=== PATIENT | male | born 1940 | race Caucasian/White ===

== ENCOUNTER 2018-07-22 00:50 | Inpatient (IN) | payer OTHER ==
[~2018-07-22] VITALS: Ht 175.3 cm; Wt 70.1 kg
[~2018-07-22 00:50] MED LIST: ACETAMINOPHEN500 MG PO; LIDO5TP TOP; Micro-K10 MEQ PO; Multivitamin W1 EAC5 PO; THIA100 PO; WARF5 PO
[2018-07-22 01:13] LABS: BASOPHILS ABSOLUTE AUTO 0.06 K/mm3 (0.00-0.23); BASOPHILS PERCENT AUTO 1 % (0-2); EOSINOPHILS ABSOLUTE AUTO 0.35 K/mm3 (0.00-0.68); EOSINOPHILS PERCENT AUTO 6 % (0-6); Hematocrit 41.2 % (37.0-53.0); Hemoglobin 13.9 g/dL (13.5-17.5); IMMATURE GRAN ABSOLUTE AUTO 0.02 K/mm3 (0.00-0.10); IMMATURE GRAN PERCENT AUTO 0 % (0-1); LYMPHOCYTES PERCENT AUTO 16 % (21-46); MONOCYTES ABSOLUTE AUTO 0.65 K/mm3 (0.16-1.47); MONOCYTES PERCENT AUTO 10 % (4-13); Mean Corpuscular HGB 33.7 pg (26.0-34.0); Mean Corpuscular HGB Conc 33.7 g/dL (31.5-36.5); Mean Corpuscular Volume 100 fL (80-100); Mean Platelet Volume 8.7 fL (9.1-12.4); NEUTROPHILS ABSOLUTE AUTO 4.23 K/mm3 (1.96-9.15); NEUTROPHILS PERCENT AUTO 67 % (41-73); Platelet Count 155 K/mm3 (150-400); RDW Coefficient Variation 12.5 % (11.7-14.2); RDW Standard Deviation 46.4 fL (35.1-46.3); Red Blood Cell Count 4.12 M/mm3 (4.30-5.90); White Blood Cell Count 6.31 K/mm3 (4.00-11.30)
[2018-07-22 01:33] LABS: Alanine Aminotransfer (ALT/SGP 18 U/L (12-78); Albumin, Blood 3.2 g/dL (3.4-5.0); Albumin/Globulin Ratio 0.9 (0.8-1.8); Alk Phos 97 U/L (50-136); Anion Gap 6 mmol/L (6-16); Aspartate Aminotrans (AST/SGOT 20 U/L (12-37); Bilirubin, Total 0.6 mg/dL (0.1-1.0); Blood Urea Nitrogen 8 mg/dL (8-24); Bun/Creatinine Ratio 10.8 (12.0-20.0); CO2, Blood 30 mmol/L (21-32); Calcium, Blood 8.5 mg/dL (8.5-10.1); Chloride, Blood 98 mmol/L (98-108); Creatinine, Blood 0.74 mg/dL (0.60-1.20); Globulin, Blood 3.4 g/dL (2.2-4.0); Glomerular Filtration Rate >60 (60-); Glucose, Blood 107 mg/dL (70-99); Potassium, Blood 3.6 mmol/L (3.5-5.5); Sodium, Blood 134 mmol/L (136-145); Total Protein, Blood 6.6 g/dL (6.4-8.2); Troponin I <0.015 ng/mL (0.000-0.040)
[2018-07-22 03:11] LABS: Source, Urine Catheter
[2018-07-22 03:16] LABS: Bilirubin, Urine Neg (Neg); Blood, Urine Neg (Neg); Glucose Qualitative, Urine Neg (Neg); Ketones, Urine Neg (Neg); Leukocyte Esterase, Urine Neg (Neg); Nitrite, Urine Neg (Neg); Protein, Urine Neg (Neg); Urobilinogen, Urine NORM (Normal)
[2018-07-22 03:21] LABS: Appearance, Urine Clear (Clear); Color, Urine Yellow (P-Yellow)
[2018-07-22 08:03] LABS: Anion Gap 7 mmol/L (6-16); Blood Urea Nitrogen 5 mg/dL (8-24); Bun/Creatinine Ratio 6.5 (12.0-20.0); CO2, Blood 29 mmol/L (21-32); Calcium, Blood 8.2 mg/dL (8.5-10.1); Chloride, Blood 99 mmol/L (98-108); Creatinine, Blood 0.78 mg/dL (0.60-1.20); Glomerular Filtration Rate >60 (60-); Glucose, Blood 90 mg/dL (70-99); Potassium, Blood 3.7 mmol/L (3.5-5.5); Sodium, Blood 135 mmol/L (136-145)
[2018-07-22 08:19] LABS: International Normalized Ratio 1.06; Prothrombin Time Results 11.2 Sec (9.7-11.5)
--- NOTE | 2018-07-22 08:57 | NUR ---
ADMIT- PT ARRIVED TO ROOM 342 VIA GURNEY FROM ED. PT A SBA INTO BED. PT DENIES ANY PAIN OR OTHER COMPLAINTS. PT A/O TO PERSON, PLACE AND DATE HOWEVER FORGETFUL AND HAD DIFFICULTY ANSWERING SOME QUESTIONS REGARDING HISTORY. LS CLEAR, ON RA. HRR. 2+ BLE EDEMA. FRAUSTO PATENT AND DRAINING BLOODY URINE, NO CLOTS NOTED AT THIS TIME. SCD'S PLACED AND BED ALARM ON. PT ORIENTED TO ROOM AND CALL SYSTEM, CALL LIGHT IN REACH.
[2018-07-22] MEDS ORDERED: WARF5 PO (09:29)
--- NOTE | 2018-07-22 09:30 | NUR ---
SPOKE WITH SON WHO REPORTS PT TAKES WARFARIN AT HOME. [facility] REPORTS PT WAS PRESCRIBED WARFARN 5MG ON MON, WED, FRI, AND FRI AND 1.5 TABS (7.5MG) ON FRI, ,FRI. THESE WERE A 30 DAY FILL ON April PRESCRIBED BY JACQUELINE GEE, PT HAS NOT HAD ANY FURTHER PICKED UP.
--- NOTE | 2018-07-22 09:44 | NUR ---
PT REPORTS FEELING URGE TO URINATE WITH FRAUSTO CATHETER IN. PT WITH BLOODY OUTPUT WITH NOTED BLOOD CLOTS, SPOKE WITH DR BARRIGA AND ORDERS RECEIVED FOR MANUAL IRRIGATION PRN.
--- NOTE | 2018-07-22 11:14 | NUR ---
MANUAL BLADDER IRRIGATION COMPLETED, PT TOLERATED WELL. CATHETER DRAINING WELL AT THIS TIME.
--- NOTE | 2018-07-22 13:59 | NUR ---
THREE WAY FRAUSTO PLACED, URINE RED WITH CLOTS. CONTINUOUS BLADDER IRRIGATION STARTED.
--- NOTE | 2018-07-22 15:20 | NUR ---
PT BECOMING MORE CONFUSED AND ADAMENT THAT HE IS GETTING UP GOING TO HIS FRIDGE TO GET A BEER, WHEN ASKED PT STATES HE IS AT THE HOSPITAL BUT THEN STATES THAT THIS IS HIS PROPERTY AND HE IS GETTING UP GETTING A BEER. PT ALSO REQUESTING HIS CHEW, NICOTINE PATCH OFFERED AND REFUSED. CIWA SCORE OF 9 AT THIS TIME, PRN ATIVAN GIVEN. SPOKE WITH DR BARRIGA WHO OK'D FOR 1 BEER WITH DINNER ONLY AT THIS TIME. WILL CONT TO MONITOR.
[2018-07-22 15:57] LABS: Hematocrit 46.2 % (37.0-53.0); Hemoglobin 15.8 g/dL (13.5-17.5)
--- NOTE | 2018-07-22 16:20 | NUR ---
REPORT GIVEN TO JAC MEJIA. PT MOVED TO ROOM 351 VIA BED FOR INCREASED CONFUSION AND AGITATION. WILL NOTIFY FAMILY OF MOVE.
--- NOTE | 2018-07-22 16:26 | NUR ---
SPOKE WITH PT'S SON BRANDI, HE CONFIRMED THAT PT DRINKS A 12 PACK A BEER A DAY ROUGHLY. WILL NOTIFY RN ASSUMING CARE.
--- NOTE | 2018-07-22 19:41 | NUR ---
SHIFT SUMMARY: PATIENT TRANSFER FROM ROOM 342 THIS SHIFT. PT HX ETOH ABUSE; PT ALERT; ORIENTED TO SELF AND LOCATION. CONTINUOUS BLADDER IRRIGATION CONTINUING; PATENT AND DRAINING; URINE DARK RED. PATIENT CONTINUING AGITATION SINCE ARRIVAL IN ROOM 351; GIANFRANCO VEST RESTRAINT APPLIED AT 1640; IV ATIVAN GIVEN. REPORT GIVEN TO ONCOMING RN.
[2018-07-23 05:31] LABS: BASOPHILS ABSOLUTE AUTO 0.03 K/mm3 (0.00-0.23); BASOPHILS PERCENT AUTO 0 % (0-2); EOSINOPHILS ABSOLUTE AUTO 0.05 K/mm3 (0.00-0.68); EOSINOPHILS PERCENT AUTO 1 % (0-6); Hematocrit 37.4 % (37.0-53.0); Hemoglobin 12.8 g/dL (13.5-17.5); IMMATURE GRAN ABSOLUTE AUTO 0.03 K/mm3 (0.00-0.10); IMMATURE GRAN PERCENT AUTO 0 % (0-1); LYMPHOCYTES PERCENT AUTO 8 % (21-46); MONOCYTES ABSOLUTE AUTO 1.04 K/mm3 (0.16-1.47); MONOCYTES PERCENT AUTO 11 % (4-13); Mean Corpuscular HGB 34.7 pg (26.0-34.0); Mean Corpuscular HGB Conc 34.2 g/dL (31.5-36.5); Mean Corpuscular Volume 101 fL (80-100); Mean Platelet Volume 9.2 fL (9.1-12.4); NEUTROPHILS ABSOLUTE AUTO 7.29 K/mm3 (1.96-9.15); NEUTROPHILS PERCENT AUTO 80 % (41-73); Platelet Count 132 K/mm3 (150-400); RDW Coefficient Variation 12.4 % (11.7-14.2); RDW Standard Deviation 46.7 fL (35.1-46.3); Red Blood Cell Count 3.69 M/mm3 (4.30-5.90); White Blood Cell Count 9.14 K/mm3 (4.00-11.30)
[2018-07-23 05:55] LABS: Albumin, Blood 2.5 g/dL (3.4-5.0); Anion Gap 5 mmol/L (6-16); Blood Urea Nitrogen 9 mg/dL (8-24); Bun/Creatinine Ratio 13.4 (12.0-20.0); CO2, Blood 33 mmol/L (21-32); Calcium, Blood 8.3 mg/dL (8.5-10.1); Chloride, Blood 100 mmol/L (98-108); Creatinine, Blood 0.67 mg/dL (0.60-1.20); Glomerular Filtration Rate >60 (60-); Glucose, Blood 100 mg/dL (70-99); Phosphorus, Blood 2.9 mg/dL (2.5-4.9); Potassium, Blood 3.7 mmol/L (3.5-5.5); Sodium, Blood 138 mmol/L (136-145)
--- NOTE | 2018-07-23 06:29 | NUR ---
SHIFT SUMMARY PT ORIENTED TO SELF. GIANFRANCO VEST IN PLACE. CBI IN USE URINE HAS BEEN LIGHT TO DARK CRANBERRY COLORED THROUGH THE SHIFT C CBI. HE WAS ABLE TO SLEEP T/O NIGHT NO S/S OF PAIN. BED ALARM IN USE.
--- NOTE | 2018-07-23 07:51 | NUR ---
RESTRAINTS UNTIED FOR TRIAL I HAVE UNTIED THE GIANFRANCO RESTRAINTS. INFORMED COOK FRUIT. PT SEEMS PLEASANT AND COOPERATIVE AT THIS TIME.
--- NOTE | 2018-07-23 18:45 | NUR ---
SHIFT SUMMARY 78 YR OLD MALE ADMITTED FOR HYDRONEPHROSIS. FULL CODE. CARDIAC DIET. 1 BEER WITH DINNER IS PRESCRIBED. SBA W/FWW. 3 WAY FRAUSTO INSTALLED W/CONTINUOUS IRRIGATION. OUTPUT ENTERED, MINUS FLUSH INFLUX. RESTRAINTS DC'D TODAY. PT WAS NOT IMPULSIVE OR A DANGER TO SELF OR OTHERS. FAMILY BROUGHT HIM BEER, WHICH I DUMPED OUT AND INSTRUCTED PT THAT THIS WAS NOT ALLOWED. PT DID REQUEST BEER MANY TIMES THROUGHOUT SHIFT. PT IS CONFUSED, UP IN CHAIR FOR MEALS. IF OUTPUT CLEARS OF BLOOD THEN PLAN IS FOR PT TO DC TOMORROW OR THE NEXT DAY. HX OF FALLS.
[2018-07-24 05:06] LABS: BASOPHILS ABSOLUTE AUTO 0.03 K/mm3 (0.00-0.23); BASOPHILS PERCENT AUTO 0 % (0-2); EOSINOPHILS ABSOLUTE AUTO 0.23 K/mm3 (0.00-0.68); EOSINOPHILS PERCENT AUTO 2 % (0-6); Hematocrit 37.2 % (37.0-53.0); Hemoglobin 12.8 g/dL (13.5-17.5); IMMATURE GRAN ABSOLUTE AUTO 0.04 K/mm3 (0.00-0.10); IMMATURE GRAN PERCENT AUTO 0 % (0-1); LYMPHOCYTES ABSOLUTE AUTO 0.72 K/mm3 (0.84-5.20); LYMPHOCYTES PERCENT AUTO 7 % (21-46); MONOCYTES PERCENT AUTO 10 % (4-13); Mean Corpuscular HGB 34.2 pg (26.0-34.0); Mean Corpuscular HGB Conc 34.4 g/dL (31.5-36.5); Mean Corpuscular Volume 100 fL (80-100); Mean Platelet Volume 9.2 fL (9.1-12.4); NEUTROPHILS PERCENT AUTO 80 % (41-73); Platelet Count 140 K/mm3 (150-400); RDW Coefficient Variation 12.4 % (11.7-14.2); RDW Standard Deviation 45.6 fL (35.1-46.3); Red Blood Cell Count 3.74 M/mm3 (4.30-5.90); White Blood Cell Count 10.72 K/mm3 (4.00-11.30)
[2018-07-24 05:24] LABS: Albumin, Blood 2.5 g/dL (3.4-5.0); Anion Gap 5 mmol/L (6-16); Blood Urea Nitrogen 6 mg/dL (8-24); Bun/Creatinine Ratio 9.5 (12.0-20.0); CO2, Blood 32 mmol/L (21-32); Calcium, Blood 8.1 mg/dL (8.5-10.1); Chloride, Blood 99 mmol/L (98-108); Creatinine, Blood 0.63 mg/dL (0.60-1.20); Glomerular Filtration Rate >60 (60-); Glucose, Blood 98 mg/dL (70-99); Phosphorus, Blood 2.3 mg/dL (2.5-4.9); Potassium, Blood 3.2 mmol/L (3.5-5.5); Sodium, Blood 136 mmol/L (136-145)
--- NOTE | 2018-07-24 07:10 | NUR ---
SHIFT SUMMARY PT C PERIODS OF CONFUSION THINKING HIS BED IS AN LUCILLE AND TRYING TO GET MONEY OUT OF IT. CAN GET AGITATED BUT IS ABLE TO BE REDIRECTED C REATTEMPTS. CBI IN USE STARTED C URINE LIGHT PINK COLOR BY END OF SHIFT LIGHT YELLOW COLOR. MEDICATED C TYLENOL FOR ORAL TEMP OF 101.2 CAME DOWN TO 98.9 AFTERWARDS. HE WAS ABLE TO GET TO SLEEP AFTER APPROX 0300. BED ALARM IN USE.
--- NOTE | 2018-07-24 16:38 | NUR ---
SHIFT SUMMARY 78 YR OLD MALE ADMITTED FOR HYDRONEPHROSIS. FULL CODE. 3-WAY FRAUSTO IN FOR BLADDER IRRIGATION. URINE WAS CLEAR THIS MORNING, NOW BLOOD TINGED AGAIN. RESTRAINTS ARE NOT IN PLACE. PT SEEMS MORE A&O TODAY, OCCASIONAL PERIODS OF CONFUSION. HOSPITALIST EXPECTS DC HOME IF URINE CLEARS OF BLOOD TOMORROW. ROOM AIR. SON AND GIRLFRIEND LIVE WITH PT, HELP WITH CARE. CARDIAC/ASPIRATION PRECAUTION DIET. PT IS UP IN CHAIR THROUGHOUT SHIFT THIS AFTERNOON. WATCHING TV IN ROOM.
[2018-07-25 05:37] LABS: BASOPHILS ABSOLUTE AUTO 0.04 K/mm3 (0.00-0.23); BASOPHILS PERCENT AUTO 0 % (0-2); EOSINOPHILS ABSOLUTE AUTO 0.39 K/mm3 (0.00-0.68); EOSINOPHILS PERCENT AUTO 3 % (0-6); Hematocrit 38.1 % (37.0-53.0); Hemoglobin 13.1 g/dL (13.5-17.5); IMMATURE GRAN ABSOLUTE AUTO 0.05 K/mm3 (0.00-0.10); IMMATURE GRAN PERCENT AUTO 0 % (0-1); LYMPHOCYTES ABSOLUTE AUTO 0.75 K/mm3 (0.84-5.20); LYMPHOCYTES PERCENT AUTO 6 % (21-46); MONOCYTES ABSOLUTE AUTO 1.03 K/mm3 (0.16-1.47); MONOCYTES PERCENT AUTO 9 % (4-13); Mean Corpuscular HGB 34.6 pg (26.0-34.0); Mean Corpuscular HGB Conc 34.4 g/dL (31.5-36.5); Mean Corpuscular Volume 101 fL (80-100); Mean Platelet Volume 9.4 fL (9.1-12.4); NEUTROPHILS ABSOLUTE AUTO 9.65 K/mm3 (1.96-9.15); NEUTROPHILS PERCENT AUTO 81 % (41-73); Platelet Count 146 K/mm3 (150-400); RDW Coefficient Variation 12.3 % (11.7-14.2); RDW Standard Deviation 46.1 fL (35.1-46.3); Red Blood Cell Count 3.79 M/mm3 (4.30-5.90); White Blood Cell Count 11.91 K/mm3 (4.00-11.30)
[2018-07-25 05:58] LABS: Albumin, Blood 2.5 g/dL (3.4-5.0); Anion Gap 6 mmol/L (6-16); Blood Urea Nitrogen 6 mg/dL (8-24); Bun/Creatinine Ratio 9.3 (12.0-20.0); CO2, Blood 32 mmol/L (21-32); Chloride, Blood 96 mmol/L (98-108); Creatinine, Blood 0.65 mg/dL (0.60-1.20); Glomerular Filtration Rate >60 (60-); Glucose, Blood 96 mg/dL (70-99); Phosphorus, Blood 2.4 mg/dL (2.5-4.9); Potassium, Blood 3.2 mmol/L (3.5-5.5); Sodium, Blood 134 mmol/L (136-145)
--- NOTE | 2018-07-25 06:39 | NUR ---
SHIFT SUMMARY PT IS 78 Y/O MALE, ADMITTED FOR HYDRO-URETER NEPHROSIS. HE IS A&O X 2, WITH OCCASIONAL EPISODES OF CONFUSION. PT IS CURRENTLY ON CONTINUOUS BLADDER IRRIGATION VIA A 3-WAY FRAUSTO. PT'S URINE WAS BLOODY AT THE START OF SHIFT, BUT HAS SINCE CLEARED TO YELLOW BY THIS AM. HE DENIED ANY COMPLAINTS OF PAIN, NAUSEA OR SOB, AND SLEPT OFF AND ON DURING THE NIGHT. VITALS STABLE. NO OTHER ACUTE CHANGES IN PT CONDITION NOTED. WILL CONTINUE TO MONITOR AND TREAT PER EMAR.
[2018-07-25] MEDS ORDERED: TAMS.4ER PO (15:15)
--- NOTE | 2018-07-25 18:04 | NUR ---
DISCHARGE DISCHARGE MEDICATIONS AND INSTRUCTIONS WERE EXPLAINED TO PATIENT AND PATIENT'S SON. FRAUSTO CARE AND FOLLOW UP INSTRUCTIONS WERE EXPLAINED IN DETAIL. THEY STATED UNDERSTANDING. IV REMOVED WITHOUT DIFFICULTY. BELONGINGS WITH PATIENT. PATIENT TRANSFERED TO PRIVATE VEHICLE VIA WHEELCHAIR.
== END 2018-07-25 17:45 | disposition home or self-care (01) | DRG 698 ==
LOC: ER 00:50 → MEDS 00:51 → ENPENDDIS 07-25 14:13 → MEDS 07-25 17:45
PROVIDERS: Emergency Medicine; Family Medicine; Physician Assistant; ADMIT Hospitalist
DX: T83.83XA Hemorrhage due to genitourinary prosthetic devices, implants and grafts, initial encounter (principal); G92 Toxic encephalopathy; D62 Acute posthemorrhagic anemia; E87.1 Hypo-osmolality and hyponatremia; N13.1 Hydronephrosis with ureteral stricture, not elsewhere classified; D69.6 Thrombocytopenia, unspecified; E87.6 Hypokalemia; E83.39 Other disorders of phosphorus metabolism; Z86.718 Personal history of other venous thrombosis and embolism; R33.9 Retention of urine, unspecified; R31.9 Hematuria, unspecified; Z85.46 Personal history of malignant neoplasm of prostate; Z85.038 Personal history of other malignant neoplasm of large intestine; F32.9 Major depressive disorder, single episode, unspecified; F41.9 Anxiety disorder, unspecified; Z87.820 Personal history of traumatic brain injury; Z91.14 Patient's other noncompliance with medication regimen; F10.129 Alcohol abuse with intoxication, unspecified
CPT/HCPCS: 36415; 51702; 70450; 71046; 74177; 80048; 80053; 80069; 81003; 83690; 84484; 85014; 85018; 85025; 85610; 93005; 93010; 96361-59; 96372-59; 96374-59; 96375; 96375-59; 96376; 97162; 97165; 97530; 97535; 99285-25; A9270; G0378; J1650; J1885; J2060; J2405; J7030; Q9967

== ENCOUNTER → 2018-07-28 | Outpatient (CLI) | payer OTHER ==
[~2018-07-28] MED LIST changes: +B-1100 MG PO; +Bactrim Ds Tab1 EACH PO; +CEFU500T30 PO; +CEPH500 PO; +FOLI1 PO; +HIGH POTENCY P1 EACH PO; +K-Phos Origina500 MG PO; +NYSTRITC TOP; +Nyamyc15 GM TOP; +TAMS.4ER PO; +THERA1 EACH PO
== END | disposition home or self-care (01) ==
LOC: LAB SHORT 16:23 → LAB EV 16:23
DX: R82.90 Unspecified abnormal findings in urine (principal)
CPT/HCPCS: 87077; 87086; 87186

== ENCOUNTER 2018-07-30 13:37 | Inpatient (IN) | payer OTHER ==
[~2018-07-30] VITALS: Ht 172.7 cm; Wt 69.3 kg
[~2018-07-30 13:37] MED LIST changes: -B-1100 MG PO; -Bactrim Ds Tab1 EACH PO; -CEFU500T30 PO; -CEPH500 PO; -FOLI1 PO; -HIGH POTENCY P1 EACH PO; -K-Phos Origina500 MG PO; -NYSTRITC TOP; -Nyamyc15 GM TOP; -THERA1 EACH PO
[2018-07-30] MEDS ORDERED: Bactrim Ds Tab1 EACH PO (13:58)
[2018-07-30] MEDS ORDERED: Nyamyc15 GM TOP (13:59)
[2018-07-30 15:41] LABS: BASOPHILS ABSOLUTE AUTO 0.03 K/mm3 (0.00-0.23); BASOPHILS PERCENT AUTO 0 % (0-2); EOSINOPHILS PERCENT AUTO 0 % (0-6); Hematocrit 40.9 % (37.0-53.0); Hemoglobin 14.6 g/dL (13.5-17.5); IMMATURE GRAN PERCENT AUTO 1 % (0-1); LYMPHOCYTES ABSOLUTE AUTO 0.38 K/mm3 (0.84-5.20); LYMPHOCYTES PERCENT AUTO 3 % (21-46); MONOCYTES ABSOLUTE AUTO 1.68 K/mm3 (0.16-1.47); MONOCYTES PERCENT AUTO 13 % (4-13); Mean Corpuscular HGB 34.1 pg (26.0-34.0); Mean Corpuscular HGB Conc 35.7 g/dL (31.5-36.5); Mean Platelet Volume 9.2 fL (9.1-12.4); NEUTROPHILS PERCENT AUTO 83 % (41-73); Platelet Count 294 K/mm3 (150-400); RDW Coefficient Variation 11.9 % (11.7-14.2); RDW Standard Deviation 41.9 fL (35.1-46.3); Red Blood Cell Count 4.28 M/mm3 (4.30-5.90); White Blood Cell Count 13.09 K/mm3 (4.00-11.30)
[2018-07-30 15:50] LABS: Mean Corpuscular Volume 96 fL (80-100)
[2018-07-30 15:52] LABS: Source, Urine Catheter
[2018-07-30 16:12] LABS: Alanine Aminotransfer (ALT/SGP 21 U/L (12-78); Albumin, Blood 2.7 g/dL (3.4-5.0); Albumin/Globulin Ratio 0.6 (0.8-1.8); Alk Phos 68 U/L (50-136); Anion Gap 12 mmol/L (6-16); Aspartate Aminotrans (AST/SGOT 27 U/L (12-37); Bilirubin, Total 0.7 mg/dL (0.1-1.0); Blood Urea Nitrogen 22 mg/dL (8-24); Bun/Creatinine Ratio 22.7 (12.0-20.0); CO2, Blood 23 mmol/L (21-32); Calcium, Blood 8.7 mg/dL (8.5-10.1); Chloride, Blood 91 mmol/L (98-108); Creatinine, Blood 0.97 mg/dL (0.60-1.20); Globulin, Blood 4.2 g/dL (2.2-4.0); Glomerular Filtration Rate >60 (60-); Glucose, Blood 143 mg/dL (70-99); Sodium, Blood 126 mmol/L (136-145); Total Protein, Blood 6.9 g/dL (6.4-8.2)
[2018-07-30 16:13] LABS: Potassium, Blood 2.4 mmol/L (3.5-5.5)
[2018-07-30 16:19] LABS: Bilirubin, Urine Neg (Neg); Blood, Urine 5+ (Neg); Glucose Qualitative, Urine Neg (Neg); Ketones, Urine Neg (Neg); Leukocyte Esterase, Urine 3+ (Neg); Nitrite, Urine Neg (Neg); Protein, Urine 3+ (Neg); Specific Gravity, Urine 1.015 (1.003-1.022); Urobilinogen, Urine NORM (Normal)
[2018-07-30 16:27] LABS: Appearance, Urine Cloudy (Clear); Color, Urine Yellow (P-Yellow)
[2018-07-30 16:28] LABS: Squamous Epithelial Cells Not Seen /hpf (Few); White Blood Cells, Urine TNTC /hpf (0-5)
[2018-07-30 16:29] LABS: Bacteria Mod /hpf
[2018-07-30 18:46] LABS: International Normalized Ratio 1.02; Prothrombin Time Results 10.8 Sec (9.7-11.5)
--- NOTE | 2018-07-31 04:34 | NUR ---
SHIFT SUMMARY: PT IS ALERT AND ORIENTED WITH NOTABLE CONFUSION. PT IS CALM AND COOPERATIVE WITH CARE. PT DID NOT USE HIS CALL LIGHT OVERNIGHT. PT NOT UP OUT OF BED OVERNIGHT. PT HAD SEVERAL INSTANCES OF LOOSE STOOL, CHANGED AND CLEANED NEEDED. FLUIDS RUNNING ORDERED, K+ LEVEL PENDING WITH MORNING LABS. PT DENIES PAIN, NAUSEA, VOMITING, AND SOB. CATHETER REMOVED THE PT CAME IN WITH IT AND IT WASN'T REPLACE IN THE ER, GIVING THE PT THE OPPORTUNITY TO VOID ON HIS OWN, WILL BLADDER SCAN AND REINSERT IF THE PT IS UNABLE TO VOID. NO ACUTE CHANGES OR COMPLICATIONS THIS SHIFT. WILL CONTINUE TO MONITOR.
[2018-07-31 05:32] LABS: Magnesium, Blood 1.6 mg/dL (1.6-2.4)
[2018-07-31 05:33] LABS: Alanine Aminotransfer (ALT/SGP 24 U/L (12-78); Albumin, Blood 2.4 g/dL (3.4-5.0); Albumin/Globulin Ratio 0.6 (0.8-1.8); Alk Phos 58 U/L (50-136); Anion Gap 9 mmol/L (6-16); Aspartate Aminotrans (AST/SGOT 32 U/L (12-37); Bilirubin, Total 0.7 mg/dL (0.1-1.0); Blood Urea Nitrogen 16 mg/dL (8-24); CO2, Blood 22 mmol/L (21-32); Chloride, Blood 102 mmol/L (98-108); Creatinine, Blood 0.84 mg/dL (0.60-1.20); Globulin, Blood 3.7 g/dL (2.2-4.0); Glomerular Filtration Rate >60 (60-); Glucose, Blood 107 mg/dL (70-99); Potassium, Blood 3.1 mmol/L (3.5-5.5); Sodium, Blood 133 mmol/L (136-145); Total Protein, Blood 6.1 g/dL (6.4-8.2)
[2018-07-31 05:47] LABS: International Normalized Ratio 1.13; Prothrombin Time Results 11.8 Sec (9.7-11.5)
--- NOTE | 2018-07-31 09:44 | NUR ---
PATIENT ANGRY WITH STAFF THIS AM BECUASE HE KEEPS GETTING WOKEN UP. REFUSED TO BE ASSESSED THIS AM AND TAKE MEDICATIONS. WILL TRY AGAIN LATER IN THE MORNING.
--- NOTE | 2018-07-31 17:28 | NUR ---
PATIENT ORIENTED TO SELF AND FAMILY. HAS BECOME MORE DISORIENTED AND AGITATED THROUGHOUT THE SHIFT. PATIENT IS A DAILY DRINKER, CIWA IS 7 THIS EVENING. ATIVAN AND LIBRIUM ORDERED PRN. FRAUSTO D/C'D LAST NIGHT AND PATIENT HAS BEEN VOIDING WITH SOME INCONTINENCE. MUTLIPLE EPISODES OF DIARRHEA THIS SHIFT. KAROLINA AREA VERY RED AND EXORIATED, CREAM APPLIED TO PROTECT. 22G TO L FA WNL AND SL. PATIENT TOLERATING REGULAR DIET. DENIES ANY PAIN. UP WITH FWW, GAIT BELT AND [address]IST[address] FALL PRECAUTIONS IN PLACE PER UNIT PROTOCOL. VSS THIS SHIFT, ON RA.
--- NOTE | 2018-07-31 21:52 | NUR ---
2014 PT BECOMING INCREASINGLY MORE AGGRESSIVE, YELLING AND SWEARING AT STAFF, UNABLE TO FOLLOW ANY REDIRECTION FROM STAFF. PT GIVEN ATIVAN 2MG IVP WITH DECREASED AGGRESSIVE BEHAVIOR NOTED. 2144 RESTING COMFORTABLY IN BED.
--- NOTE | 2018-08-01 03:59 | NUR ---
SHIFT SUMMARY: 78 Y/O MALE ON CIWA PRECAUTIONS (HIGHEST SCORE WAS 12 AND LOWEST WAS 6 THIS AM). PT RECEIVED ATIVAN 2MG IVP AFTER BECOMING AGITATED AT BEGINNING OF SHIFT WITH PATIENT ABLE TO REST COMFORTABLY FOR OVER 5 HOURS. PT MORE CALM AND ABLE TO FOLLOW SIMPLE VERBAL COMMANDS AFTER RESTING ALL EVENING. 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 PT HAS SHORT TERM MEMORY ISSUES, ASSISTED MEMORY INTACT. PT DENIES PAIN OR NAUSEA AND DESIRES TO RETURN HOME SOON IF POSSIBLE. PTS BED ALARM APPLIED, BED LOW POSITION, CALL LIGHT AT SIDE.
[2018-08-01 05:18] LABS: BASOPHILS ABSOLUTE AUTO 0.07 K/mm3 (0.00-0.23); BASOPHILS PERCENT AUTO 1 % (0-2); EOSINOPHILS PERCENT AUTO 1 % (0-6); Hematocrit 39.2 % (37.0-53.0); Hemoglobin 13.7 g/dL (13.5-17.5); IMMATURE GRAN ABSOLUTE AUTO 0.13 K/mm3 (0.00-0.10); IMMATURE GRAN PERCENT AUTO 1 % (0-1); LYMPHOCYTES PERCENT AUTO 4 % (21-46); MONOCYTES ABSOLUTE AUTO 1.41 K/mm3 (0.16-1.47); MONOCYTES PERCENT AUTO 15 % (4-13); Mean Corpuscular HGB 34.3 pg (26.0-34.0); Mean Corpuscular HGB Conc 34.9 g/dL (31.5-36.5); Mean Corpuscular Volume 98 fL (80-100); Mean Platelet Volume 8.4 fL (9.1-12.4); NEUTROPHILS ABSOLUTE AUTO 7.48 K/mm3 (1.96-9.15); NEUTROPHILS PERCENT AUTO 78 % (41-73); Platelet Count 270 K/mm3 (150-400); Red Blood Cell Count 3.99 M/mm3 (4.30-5.90); White Blood Cell Count 9.59 K/mm3 (4.00-11.30)
[2018-08-01 05:31] LABS: International Normalized Ratio 1.76; Prothrombin Time Results 17.7 Sec (9.7-11.5)
[2018-08-01 05:42] LABS: Magnesium, Blood 1.7 mg/dL (1.6-2.4)
[2018-08-01 05:46] LABS: Albumin, Blood 2.4 g/dL (3.4-5.0); Anion Gap 9 mmol/L (6-16); Blood Urea Nitrogen 14 mg/dL (8-24); Bun/Creatinine Ratio 18.3 (12.0-20.0); CO2, Blood 22 mmol/L (21-32); Calcium, Blood 8.8 mg/dL (8.5-10.1); Chloride, Blood 103 mmol/L (98-108); Creatinine, Blood 0.77 mg/dL (0.60-1.20); Glomerular Filtration Rate >60 (60-); Glucose, Blood 87 mg/dL (70-99); Phosphorus, Blood 1.9 mg/dL (2.5-4.9); Sodium, Blood 134 mmol/L (136-145)
[2018-08-01 10:40] LABS: Source, Urine Catheter
[2018-08-01 10:48] LABS: Bilirubin, Urine Neg (Neg); Blood, Urine 2+ (Neg); Glucose Qualitative, Urine Neg (Neg); Ketones, Urine Neg (Neg); Leukocyte Esterase, Urine 1+ (Neg); Nitrite, Urine Neg (Neg); Protein, Urine 1+ (Neg); Urobilinogen, Urine NORM (Normal)
[2018-08-01 10:59] LABS: Appearance, Urine Clear (Clear); Color, Urine Yellow (P-Yellow)
[2018-08-01 11:01] LABS: Bacteria Rare /hpf; Squamous Epithelial Cells Rare /hpf (Few)
--- NOTE | 2018-08-01 17:44 | NUR ---
SHIFT SUMMARY- PT AXO TO SELF. INTERMITTENT CONFUSION. PT DENIES PAIN. DENIES SOB. RESP E/U ON RA. DENIES N/V. CIWA BETWEEN 2-4 THIS SHIFT. PT'S BP LOW THIS SHIFT. DR. SANABRIA AWARE. NO NEW ORDERS AT THIS TIME. PT'S POTASSIUM 3.0 THIS AM. MEDS GIVEN PER EMAR. PT SLEEPING T/O MOST OF SHIFT. FRAUSTO PLACED. FRAUSTO PATENT AND DRAINING. TURNS Q2H. INCONTINTENT. ATTENDS IN PLACE. NO OTHER SIGNIFICANT CHANGES THIS SHIFT.
[2018-08-02 05:36] LABS: International Normalized Ratio 2.95; Prothrombin Time Results 28.3 Sec (9.7-11.5)
[2018-08-02 05:46] LABS: Albumin, Blood 2.3 g/dL (3.4-5.0); Anion Gap 6 mmol/L (6-16); Blood Urea Nitrogen 6 mg/dL (8-24); Bun/Creatinine Ratio 9.4 (12.0-20.0); CO2, Blood 25 mmol/L (21-32); Calcium, Blood 8.5 mg/dL (8.5-10.1); Chloride, Blood 102 mmol/L (98-108); Creatinine, Blood 0.64 mg/dL (0.60-1.20); Glomerular Filtration Rate >60 (60-); Glucose, Blood 89 mg/dL (70-99); Magnesium, Blood 1.3 mg/dL (1.6-2.4); Phosphorus, Blood 2.7 mg/dL (2.5-4.9); Sodium, Blood 133 mmol/L (136-145)
--- NOTE | 2018-08-02 06:45 | NUR ---
SHIFT SUMMARY: 78 Y/O MALE RESTED COMFORTABLY ALL SHIFT. PT AT BEGINNING SHIFT SCORED CIWA 12 WITH ATIVAN 1MG IVP GIVEN WITH SUBSEQUENT SCORES A 6. PT BILATERAL BUTTOCKS ARE NOTED TO BE FIRE RED COLORED WITH PROTECTIVE BARRIER CREAM APPLIED BY NURSING STAFF. PT HAD ONE GREEN COLORED STOOL (FORMED THAT HAD STRONG ODOR OF C-DIFF, PASSED ONTO DAY SHIFT RN FOR FOLLOW UP DIARRHEA SAMPLE NEEDED FOR LAB). PT IS ALERT AND ORIENTED X 2 AND ABLE TO FOLLOW ALL SIMPLE VERBAL COMMANDS. PT IS DECONDITIONED AND REQUIRES PT/OT EXCERCISE CONSULTS. PT VOICED HE WOULD LIKE A BEER MULTIPLE TIMES DURING SHIFT WITH THIS NURSE OFFERING WATER TO DRINK WHICH WAS TAKEN. PT DENIES PAIN OR NAUSEA. PTS BED ALARM APPLIED, BED LOW POSITION, CALL LIGHT AT SIDE.
--- NOTE | 2018-08-02 18:19 | NUR ---
SHIFT SUMMARY- PT AXO TO SELF AND FOLLOWING DIRECTIONS. PT SCORED A CIWA OF 9 THIS AM. MEDS GIVEN PER EMAR. CIWA SCORE OF 5 THIS PM. DENIES N/V. DENIES SOB. RESP E/U ON RA. PT SLEEPING ON/OFF MOST OF THE SHIFT. PT HAVING MIXED CONSISTENCY STOOL. STOOL LIQUID WITH BROWN LUMPS OF "MASH POTATOE" LIKE CONSISTENCY. BOTTOM RED. NYSTATIN PER EMAR. COCCYX MEPILEX PLACED. NO OTHER SIGNIFICANT CHANGES THIS SHIFT.
[2018-08-03 05:11] LABS: BASOPHILS ABSOLUTE AUTO 0.04 K/mm3 (0.00-0.23); BASOPHILS PERCENT AUTO 0 % (0-2); EOSINOPHILS PERCENT AUTO 2 % (0-6); Hematocrit 35.7 % (37.0-53.0); Hemoglobin 12.4 g/dL (13.5-17.5); IMMATURE GRAN ABSOLUTE AUTO 0.12 K/mm3 (0.00-0.10); IMMATURE GRAN PERCENT AUTO 1 % (0-1); LYMPHOCYTES PERCENT AUTO 8 % (21-46); MONOCYTES ABSOLUTE AUTO 0.93 K/mm3 (0.16-1.47); MONOCYTES PERCENT AUTO 9 % (4-13); Mean Corpuscular HGB 33.2 pg (26.0-34.0); Mean Corpuscular HGB Conc 34.7 g/dL (31.5-36.5); Mean Corpuscular Volume 96 fL (80-100); Mean Platelet Volume 8.5 fL (9.1-12.4); NEUTROPHILS ABSOLUTE AUTO 8.42 K/mm3 (1.96-9.15); NEUTROPHILS PERCENT AUTO 80 % (41-73); Platelet Count 260 K/mm3 (150-400); RDW Coefficient Variation 12.3 % (11.7-14.2); RDW Standard Deviation 43.4 fL (35.1-46.3); Red Blood Cell Count 3.73 M/mm3 (4.30-5.90); White Blood Cell Count 10.51 K/mm3 (4.00-11.30)
[2018-08-03 05:26] LABS: International Normalized Ratio 3.03
[2018-08-03 05:41] LABS: Albumin, Blood 2.1 g/dL (3.4-5.0); Anion Gap 9 mmol/L (6-16); Blood Urea Nitrogen 6 mg/dL (8-24); Bun/Creatinine Ratio 9.9 (12.0-20.0); CO2, Blood 23 mmol/L (21-32); Calcium, Blood 8.3 mg/dL (8.5-10.1); Chloride, Blood 106 mmol/L (98-108); Creatinine, Blood 0.61 mg/dL (0.60-1.20); Glomerular Filtration Rate >60 (60-); Glucose, Blood 82 mg/dL (70-99); Phosphorus, Blood 2.6 mg/dL (2.5-4.9); Potassium, Blood 3.3 mmol/L (3.5-5.5); Sodium, Blood 138 mmol/L (136-145)
--- NOTE | 2018-08-03 05:41 | NUR ---
HOSPICE CLINICAL SUPERVISOR SUMMARY PT. IS A&O X2, IS ABLE TO FOLLOW DIRECTIONS. PT. HAS RESTED COMFORTABLY ALL NIGHT. DENIES PAIN, NA, OR ANY DISCOMFORT. BOTTOM IS BRIGHT RED, MEPILEX APPLIED TO THE AREA WELL PROTECTIVE BARRIER CREAM, AND NYSTATIN POWDER PER EMAR ORDER. NOTED SROTUM SWELLING AND SLIGHT BLOOD AT THE TIP OF PENIS. FRAUSTO CATHETER CURRENTLY IN PLACE, RECEIVED REPORT PT. POSSIBLY TUGGED AT CATHETER ACCIDENTLY. NO BLOOD SEEN IN URINE BAG. PT. DENIES ANY PAIN OR DISCOMFORT AT THE SITE. PT. REMAINS ASLEEP IN BED, NO APPARENT DISTRESS NOTED. CALL LIGHT WITHIN REACH AND SIDE RAILS UP X3. WILL CONT TO MONITOR.
--- NOTE | 2018-08-03 12:10 | NUR ---
IV ACCESS: LATE ENTRY LATE ENTRY. PATIENT LOST IV ACCESS THIS MORNING. PATIENT RELUCTANT TO HAVE ANOTHER IV PLACED. SPOKE WITH DR. SANABRIA. SHE REQUESTED THAT HE CONTINUE TO HAVE IV ACCESS. [facility] NURSES ON UNIT LOOKING FOR PATIENTS THAT REQUIRED IV ACCESS. POWERGLIDE PLACED. PATIENT AGREEABLE AND PLEASANT.
[2018-08-03 13:25] LABS: Adenovirus F 40/41 Not Detected (NOT DETECT); Astrovirus Not Detected (NOT DETECT); Campylobacter Sp Not Detected (NOT DETECT); Cryptosporidium Not Detected (NOT DETECT); Cyclospora Cayetanensis Not Detected (NOT DETECT); E. Coli O157 Not Detected (NOT DETECT); Entamoeba Histolytica Not Detected (NOT DETECT); Enteroaggregative E. coli-EAEC Not Detected (NOT DETECT); Enteropathogenic E. coli-EPEC Not Detected (NOT DETECT); Enterotoxigenic E. coli-ETEC Not Detected (NOT DETECT); Giardia Lamblia Not Detected (NOT DETECT); Norovirus GI/GII Not Detected (NOT DETECT); Plesiomonas Shigelloides Not Detected (NOT DETECT); Rotavirus A Not Detected (NOT DETECT); Salmonella Sp Not Detected (NOT DETECT); Sapovirus Not Detected (NOT DETECT); Shiga Toxin-prod E. coli-STEC Not Detected (NOT DETECT); Shigella/Enteroin E. coli-EIEC Not Detected (NOT DETECT); Vibrio Cholerae Not Detected (NOT DETECT); Vibrio Sp Not Detected (NOT DETECT); Yersinia Enterocolitica Not Detected (NOT DETECT)
--- NOTE | 2018-08-03 17:49 | NUR ---
SHIFT SUMMARY: PATIENT HAD SOME CONFUSION TODAY. FOR EXAMPLE, HE MOMENTARILY THOUGHT THAT HE WAS AT HOME, ASKED FOR A BEER, AND THEN REMEMBERED THAT HE WAS IN THE HOSPITAL. CONTINUES TO HAVE A LOW CIWA SCORE (2-4). IN THE MORNING, DRAINAGE FROM THE FRAUSTO WAS DARK YELLOW. DURING THE AFTERNOON, SOME CLOTS PASSED AND THE URINE BECAME RED. PATIENT REPORTED "HAVING TO PEE". FLUSHED CATHETER. NO RESISTANCE MET. A SMALL CLOT PASSED AND URINE RETURNED TO YELLOW. ENCOURAGED PO FLUID INTAKE. PATIENT AGREEABLE. END OF THE FORSKIN AND PENIS IS RED AND SWOLLEN. PROVIDED KAROLINA-CARE AND CLEANED THOROUGHLY AROUND FORSKIN AND PENIS. ENSURED THAT FORESKIN WAS IN PROPER POSITION. PATIENT REPORTS INCREASED COMFORT. FAMILY VISITED PATIENT THIS AFTERNOON. THEY ARE REQUESTING THAT PATIENT IS TRANSFERRED TO [facility]. DISCUSSED DISCHARGE OPTIONS WITH FAMILY. DISCUSSED FAMILY WISHES TO DR. SANABRIA. DR. SANABRIA DISCUSSED OPTIONS WITH FAMILY AND A TENTATIVE DISCHARGE TOMORROW MORNING.
--- NOTE | 2018-08-04 04:24 | NUR ---
REPAIRER ART OBJECTS SUMMARY NO ACUTE CHANGES THIS SHIFT. PT AAOX2, KNOWS HE'S AT THE HOSPITAL IN [place] BUT DOES HAVE SOME INTERMITTENT CONFUSION. RARELY USES THE CALL LIGHT AND INSTEAD YELLS OUT. 2 ASSIST TO THE BSC. FRAUSTO CATH PATENT AND DRAINING RED TINGED URINE. VSS, WILL CONTINUE TO MONITOR.
[2018-08-04 05:18] LABS: BASOPHILS ABSOLUTE AUTO 0.06 K/mm3 (0.00-0.23); BASOPHILS PERCENT AUTO 1 % (0-2); EOSINOPHILS ABSOLUTE AUTO 0.26 K/mm3 (0.00-0.68); EOSINOPHILS PERCENT AUTO 3 % (0-6); Hematocrit 33.5 % (37.0-53.0); Hemoglobin 11.7 g/dL (13.5-17.5); IMMATURE GRAN ABSOLUTE AUTO 0.17 K/mm3 (0.00-0.10); IMMATURE GRAN PERCENT AUTO 2 % (0-1); LYMPHOCYTES ABSOLUTE AUTO 0.93 K/mm3 (0.84-5.20); LYMPHOCYTES PERCENT AUTO 10 % (21-46); MONOCYTES ABSOLUTE AUTO 0.76 K/mm3 (0.16-1.47); MONOCYTES PERCENT AUTO 8 % (4-13); Mean Corpuscular HGB 34.1 pg (26.0-34.0); Mean Corpuscular HGB Conc 34.9 g/dL (31.5-36.5); Mean Corpuscular Volume 98 fL (80-100); Mean Platelet Volume 9.3 fL (9.1-12.4); NEUTROPHILS ABSOLUTE AUTO 6.91 K/mm3 (1.96-9.15); NEUTROPHILS PERCENT AUTO 76 % (41-73); Platelet Count 258 K/mm3 (150-400); RDW Coefficient Variation 12.7 % (11.7-14.2); Red Blood Cell Count 3.43 M/mm3 (4.30-5.90); White Blood Cell Count 9.09 K/mm3 (4.00-11.30)
[2018-08-04 05:33] LABS: International Normalized Ratio 2.43; Prothrombin Time Results 23.8 Sec (9.7-11.5)
[2018-08-04 06:42] LABS: Albumin, Blood 2.2 g/dL (3.4-5.0); Anion Gap 5 mmol/L (6-16); Blood Urea Nitrogen 7 mg/dL (8-24); Bun/Creatinine Ratio 10.6 (12.0-20.0); CO2, Blood 28 mmol/L (21-32); Calcium, Blood 8.3 mg/dL (8.5-10.1); Chloride, Blood 105 mmol/L (98-108); Creatinine, Blood 0.66 mg/dL (0.60-1.20); Glomerular Filtration Rate >60 (60-); Glucose, Blood 86 mg/dL (70-99); Phosphorus, Blood 2.4 mg/dL (2.5-4.9); Potassium, Blood 3.5 mmol/L (3.5-5.5); Sodium, Blood 138 mmol/L (136-145)
[2018-08-04] MEDS ORDERED: CEFU500T30 PO (13:23)
[2018-08-04] MEDS ORDERED: FOLI1 PO (13:24)
[2018-08-04] MEDS ORDERED: HIGH POTENCY P1 EACH PO (13:25)
[2018-08-04] MEDS ORDERED: THERA1 EACH PO (13:26)
[2018-08-04] MEDS ORDERED: TAMS.4ER PO (13:27)
[2018-08-04] MEDS ORDERED: B-1100 MG PO (13:27)
[2018-08-04] MEDS ORDERED: NYSTRITC TOP (13:29)
[2018-08-04] MEDS ORDERED: K-Phos Origina500 MG PO (13:30)
--- NOTE | 2018-08-04 14:38 | NUR ---
PATIENT DISCHARGE: PER ORDERS, PATIENT READY FOR DISCHARGE. DISCUSSED DISCHARGE PLAN WITH IRENE, COORDINATOR FOR [facility]. SHE WAS ABLE TO UTILIZE A PRIOR UROLOGY REFERRAL MADE FOR THIS PATIENT TO ASSIST WITH A REFERRAL THIS TIME. PATIENT WILL RECEIVE CALL FROM [facility] TO SET UP APPOINTMENT. IRENE WILL ASSIST [facility] SETTING UP PCP APPOINTMENT WITH [facility] FOR THIS PATIENT. [facility] WILL ALSO CONTACT PATIENT TO SET UP FIRST VISIT. PATIENT AND HIS SON ARE AWARE OF AND AGREEABLE TO THE PLAN. DISCHARGE MEDICATION SENT TO [facility] PER PATIENT REQUEST. DISCHARGE EDUCATION PROVIDED TO SON. DISCHARGE PAPERWORK, EDUCATION, AND DISCHARGE INSTRUCTIONS PROVIDED TO SON. PATIENT DISCHARGED IN WHEELCHAIR WITH [employer] REPORTER. PATIENT STABLE AT TIME OF DISCHARGE.
== END 2018-08-04 14:50 | disposition home health service (06) | DRG 698 ==
LOC: ER 13:37 → MEDS 17:40 → ENPENDDIS 08-04 13:54 → MEDS 08-04 14:50
PROVIDERS: Emergency Medicine; Internal Medicine; ADMIT Internal Medicine
DX: T83.511A Infection and inflammatory reaction due to indwelling urethral catheter, initial encounter (principal); A41.9 Sepsis, unspecified organism; E87.1 Hypo-osmolality and hyponatremia; F10.230 Alcohol dependence with withdrawal, uncomplicated; N13.1 Hydronephrosis with ureteral stricture, not elsewhere classified; N39.0 Urinary tract infection, site not specified; B96.20 Unspecified Escherichia coli [E. coli] as the cause of diseases classified elsewhere; E87.6 Hypokalemia; R33.9 Retention of urine, unspecified; K52.9 Noninfective gastroenteritis and colitis, unspecified; E83.39 Other disorders of phosphorus metabolism; F41.8 Other specified anxiety disorders; E83.42 Hypomagnesemia; E86.0 Dehydration; Z79.01 Long term (current) use of anticoagulants
CPT/HCPCS: 36415; 71045; 74177; 80053; 80069; 81001; 83605; 83735; 84443; 85025; 85610; 85651; 86140; 87040; 87077; 87086; 87186; 87493; 87507; 93005; 93010; 96365; 96375; 97162; 97166; 97530; 97535; 99285-25; J0696; J2060; J3475; J3480; J7030; J7050; J7060; Q9967

== ENCOUNTER 2018-08-05 10:35 | Emergency (ER) | payer OTHER ==
[~2018-08-05] VITALS: Ht 172.7 cm; Wt 79.4 kg
[~2018-08-05 10:35] MED LIST changes: +B-1100 MG PO; +Bactrim Ds Tab1 EACH PO; +CEFU500T30 PO; +FOLI1 PO; +HIGH POTENCY P1 EACH PO; +K-Phos Origina500 MG PO; +NYSTRITC TOP; +Nyamyc15 GM TOP; +THERA1 EACH PO
[2018-08-05 12:03] LABS: BASOPHILS PERCENT AUTO 1 % (0-2); EOSINOPHILS ABSOLUTE AUTO 0.19 K/mm3 (0.00-0.68); EOSINOPHILS PERCENT AUTO 2 % (0-6); Hematocrit 36.9 % (37.0-53.0); Hemoglobin 12.7 g/dL (13.5-17.5); IMMATURE GRAN ABSOLUTE AUTO 0.41 K/mm3 (0.00-0.10); IMMATURE GRAN PERCENT AUTO 5 % (0-1); LYMPHOCYTES ABSOLUTE AUTO 0.92 K/mm3 (0.84-5.20); LYMPHOCYTES PERCENT AUTO 11 % (21-46); MONOCYTES ABSOLUTE AUTO 0.81 K/mm3 (0.16-1.47); MONOCYTES PERCENT AUTO 9 % (4-13); Mean Corpuscular HGB 33.6 pg (26.0-34.0); Mean Corpuscular HGB Conc 34.4 g/dL (31.5-36.5); Mean Corpuscular Volume 98 fL (80-100); Mean Platelet Volume 8.3 fL (9.1-12.4); NEUTROPHILS ABSOLUTE AUTO 6.23 K/mm3 (1.96-9.15); NEUTROPHILS PERCENT AUTO 72 % (41-73); Platelet Count 347 K/mm3 (150-400); RDW Coefficient Variation 12.3 % (11.7-14.2); RDW Standard Deviation 44.2 fL (35.1-46.3); Red Blood Cell Count 3.78 M/mm3 (4.30-5.90); White Blood Cell Count 8.66 K/mm3 (4.00-11.30)
[2018-08-05 12:20] LABS: Alanine Aminotransfer (ALT/SGP 25 U/L (12-78); Albumin, Blood 2.5 g/dL (3.4-5.0); Albumin/Globulin Ratio 0.7 (0.8-1.8); Alk Phos 57 U/L (50-136); Anion Gap 6 mmol/L (6-16); Aspartate Aminotrans (AST/SGOT 26 U/L (12-37); Bilirubin, Total 0.6 mg/dL (0.1-1.0); Blood Urea Nitrogen 7 mg/dL (8-24); Bun/Creatinine Ratio 9.4 (12.0-20.0); CO2, Blood 28 mmol/L (21-32); Calcium, Blood 8.3 mg/dL (8.5-10.1); Chloride, Blood 101 mmol/L (98-108); Creatinine, Blood 0.74 mg/dL (0.60-1.20); Ethanol (Alcohol), Blood, Med <3 mg/dL; Globulin, Blood 3.5 g/dL (2.2-4.0); Glomerular Filtration Rate >60 (60-); Glucose, Blood 99 mg/dL (70-99); Potassium, Blood 4.1 mmol/L (3.5-5.5); Sodium, Blood 135 mmol/L (136-145)
[2018-08-05 12:21] LABS: International Normalized Ratio 1.86; Prothrombin Time Results 18.6 Sec (9.7-11.5)
[2018-08-05 12:58] LABS: Source, Urine Catheter
[2018-08-05 13:03] LABS: Appearance, Urine Cloudy (Clear); Bilirubin, Urine Neg (Neg); Blood, Urine 5+ (Neg); Color, Urine Amber (P-Yellow); Glucose Qualitative, Urine Neg (Neg); Ketones, Urine 1+ (Neg); Leukocyte Esterase, Urine 2+ (Neg); Nitrite, Urine Pos (Neg); Protein, Urine 4+ (Neg); Urobilinogen, Urine NORM (Normal)
[2018-08-05 13:16] LABS: Red Blood Cells, Urine TNTC /hpf (0-2)
[2018-08-05 13:19] LABS: Bacteria Few /hpf; Squamous Epithelial Cells Not Seen /hpf (Few)
== END 2018-08-05 14:36 | disposition home or self-care (01) ==
LOC: ER 10:35
PROVIDERS: Emergency Medicine
DX: T83.511A Infection and inflammatory reaction due to indwelling urethral catheter, initial encounter (principal); Z86.718 Personal history of other venous thrombosis and embolism; Z87.440 Personal history of urinary (tract) infections; Z87.891 Personal history of nicotine dependence; Z79.899 Other long term (current) drug therapy
CPT/HCPCS: 51702; 51798; 80053; 81001; 85025; 85610; 87086; 96365; 99283-25; G0480; J0696

== ENCOUNTER 2018-08-15 18:39 | Emergency (ER) | payer OTHER ==
[~2018-08-15] VITALS: Ht 172.7 cm; Wt 74.4 kg
[2018-08-15 19:04] LABS: Source, Urine Catheter
[2018-08-15 19:15] LABS: Bilirubin, Urine Neg (Neg); Blood, Urine 5+ (Neg); Glucose Qualitative, Urine Neg (Neg); Ketones, Urine 1+ (Neg); Leukocyte Esterase, Urine 3+ (Neg); Nitrite, Urine Neg (Neg); Protein, Urine 3+ (Neg); Urobilinogen, Urine NORM (Normal)
[2018-08-15 19:29] LABS: Appearance, Urine Hazy (Clear); Color, Urine Yellow (P-Yellow)
[2018-08-15 19:32] LABS: Bacteria Many /hpf; Red Blood Cells, Urine TNTC /hpf (0-2); Squamous Epithelial Cells Few /hpf (Few); White Blood Cells, Urine 25-50 /hpf (0-5)
[2018-08-15] MEDS ORDERED: CEPH500 PO (19:40)
== END 2018-08-15 21:29 | disposition home or self-care (01) ==
LOC: ER 18:39
PROVIDERS: Emergency Medicine
DX: T83.098A Other mechanical complication of other urinary catheter, initial encounter (principal); N39.0 Urinary tract infection, site not specified; Z86.73 Personal history of transient ischemic attack (TIA), and cerebral infarction without residual deficits; Z87.891 Personal history of nicotine dependence; Z79.899 Other long term (current) drug therapy; Z79.01 Long term (current) use of anticoagulants
CPT/HCPCS: 51702; 81001; 87086; 99283

== ENCOUNTER 2018-08-19 12:25 | Emergency (ER) | payer OTHER ==
[~2018-08-19] VITALS: Ht 175.3 cm; Wt 70.3 kg
[~2018-08-19 12:25] MED LIST changes: +CEPH500 PO
== END 2018-08-19 15:01 | disposition home or self-care (01) ==
LOC: ER 12:25
DX: Z46.6 Encounter for fitting and adjustment of urinary device (principal); Z86.73 Personal history of transient ischemic attack (TIA), and cerebral infarction without residual deficits; Z87.891 Personal history of nicotine dependence
CPT/HCPCS: 99282

== ENCOUNTER → 2018-09-02 | Outpatient (CLI) | payer OTHER ==
[2018-09-02 16:34] LABS: International Normalized Ratio 2.11; Prothrombin Time Results 20.9 Sec (9.7-11.5)
== END | disposition home or self-care (01) ==
LOC: LAB 16:07 → LAB SHORT 16:07
PROVIDERS: Family Medicine
DX: A41.51 Sepsis due to Escherichia coli [E. coli] (principal); M62.81 Muscle weakness (generalized); I74.9 Embolism and thrombosis of unspecified artery
CPT/HCPCS: 85610

== ENCOUNTER 2019-07-17 21:12 | Inpatient (IN) | payer OTHER ==
[~2019-07-17] VITALS: Ht 162.6 cm; Wt 63.1 kg
[2019-07-17 21:38] LABS: Hematocrit 48.4 % (37.0-53.0); Hemoglobin 16.7 g/dL (13.5-17.5); Mean Corpuscular HGB 33.7 pg (26.0-34.0); Mean Corpuscular HGB Conc 34.5 g/dL (31.5-36.5); Mean Corpuscular Volume 98 fL (80-100); Mean Platelet Volume 8.6 fL (9.1-12.4); Platelet Count 198 K/mm3 (150-400); RDW Coefficient Variation 12.6 % (11.7-14.2); RDW Standard Deviation 45.2 fL (35.1-46.3); Red Blood Cell Count 4.96 M/mm3 (4.30-5.90); White Blood Cell Count 20.86 K/mm3 (4.00-11.30)
[2019-07-17 21:54] LABS: International Normalized Ratio 1.07; Prothrombin Time Results 11.4 Sec (9.7-11.5)
[2019-07-17 21:57] LABS: BAND PERCENT MAN 9 % (0-8); BASOPHILS PERCENT MAN 0 % (0-2); EOSINOPHILS PERCENT MAN 0 % (0-6); LYMPHOCYTES PERCENT MAN 1 % (21-46); MONOCYTES ABSOLUTE MAN 1.46 K/mm3 (0.16-1.47); MONOCYTES PERCENT MAN 7 % (4-13); NEUTROPHILS ABSOLUTE MAN 19.19 K/mm3 (1.96-9.15); SEG NEUTROPHILS PERCENT MAN 83 % (41-73); TOTAL CELLS COUNTED 100
[2019-07-17 22:00] LABS: Alanine Aminotransfer (ALT/SGP 15 U/L (12-78); Albumin, Blood 2.6 g/dL (3.4-5.0); Albumin/Globulin Ratio 0.5 (0.8-1.8); Alk Phos 86 U/L (50-136); Anion Gap 14 mmol/L (6-16); Aspartate Aminotrans (AST/SGOT 19 U/L (12-37); Bilirubin, Total 1.1 mg/dL (0.1-1.0); Blood Urea Nitrogen 29 mg/dL (8-24); Bun/Creatinine Ratio 21.2 (12.0-20.0); CO2, Blood 20 mmol/L (21-32); Calcium, Blood 8.9 mg/dL (8.5-10.1); Chloride, Blood 95 mmol/L (98-108); Creatinine, Blood 1.37 mg/dL (0.60-1.20); Globulin, Blood 4.9 g/dL (2.2-4.0); Glomerular Filtration Rate 53 (60-); Glucose, Blood 141 mg/dL (70-99); Potassium, Blood 3.4 mmol/L (3.5-5.5); Sodium, Blood 129 mmol/L (136-145); Total Protein, Blood 7.5 g/dL (6.4-8.2); Troponin I <0.015 ng/mL (0.000-0.040)
[2019-07-17 22:05] LABS: Base Excess Venous -2.9 mmol/L; PO2 Venous 38.7 mmHg (38-42)
[2019-07-17 23:04] LABS: Source, Urine Voided
[2019-07-17 23:18] LABS: Bilirubin, Urine Neg (Neg); Blood, Urine 5+ (Neg); Glucose Qualitative, Urine Neg (Neg); Ketones, Urine Neg (Neg); Leukocyte Esterase, Urine 3+ (Neg); Nitrite, Urine Neg (Neg); Protein, Urine 3+ (Neg); Specific Gravity, Urine 1.015 (1.003-1.022); Urobilinogen, Urine NORM (Normal)
[2019-07-17 23:23] LABS: Appearance, Urine Turbid (Clear); Color, Urine Yellow (P-Yellow)
[2019-07-17 23:24] LABS: Bacteria Many /hpf; Red Blood Cells, Urine 0-2 /hpf (0-2); Squamous Epithelial Cells Not Seen /hpf (Few); White Blood Cells, Urine TNTC /hpf (0-5)
[2019-07-18 02:22] LABS: Bun/Creatinine Ratio 23.1 (12.0-20.0); Calcium, Blood 7.6 mg/dL (8.5-10.1); Creatinine, Blood 1.34 mg/dL (0.60-1.20); Potassium, Blood 2.9 mmol/L (3.5-5.5)
--- NOTE | 2019-07-18 06:31 | NUR ---
END OF SHIFT SUMMARY PT TO UNIT FROM ED. AXO. SEPSIS BOLUS INFUSING UPON ARRIVAL. FINISHED THIS. INPATIENT NS RATE STARTED. PT ON RA. FRAUSTO PRESENT ON ADMISSION, URINE IS MILKY, CLOUDY, BROWN/COFFEE COLOR. 1 BLOOD CLOT NOTICED IN BAG. PATENT AND DRAINING. CIWAS BEING MONITORED, <8. ADMISSION PACKET COMPLETED. SON UPDATED OF CONDITION. VSS. PT UPPER MATTAPONI. WILL CONTINUE TO MONITOR UNTIL SHIFT CHANGE.
--- NOTE | 2019-07-18 11:15 | NUR ---
UPDATE BP LOW AT 83/54. PT ASYMPTOMATIC. HR SINUS IN THE 60'S. DR. TOMAS NOTIFIED AND IN TO SEE PT. NEW ORDERS PROVIDED. WILL MEDICATED PER EMAR AND CONTINUE TO MONITOR CLOSELY.
--- NOTE | 2019-07-18 17:46 | NUR ---
SHIFT SUMMARY PT ALERT AND ORIENTED TO SELF AND FOLLOWING DIRECTIONS. PT INCREASINGLY CONFUSED THROUGH SHIFT OF PLACE AND SITUATION. PT MILDLY ANXIOUS THIS EVENING AND TREMORS NOTED TO BILATERAL UPPER EXTREMITIES. VS STABLE. BP IMPROVED AFTER FLUID BOLUS, WITH MAP REMAINING ABOVE 60. HR NSR. O2 SATS REMAIN ABOVE 90% ON RA. PT DENIES ANY PAIN. FRAUSTO PATENT AND DRAINING TEA COLORED URINE. NS WITH KCL INFUSING PER ORDERS. PT ABLE TO REPOSITION HIMSELF IN BED. PT SITTING UP EATING DINNER AT THIS TIME. MONITORING CIWA. WILL CONTINUE TO MONITOR AND REPORT TO ONCOMING RN. BED ALARM ON.
[2019-07-19 03:47] LABS: BASOPHILS ABSOLUTE AUTO 0.03 K/mm3 (0.00-0.23); BASOPHILS PERCENT AUTO 0 % (0-2); EOSINOPHILS ABSOLUTE AUTO 0.02 K/mm3 (0.00-0.68); EOSINOPHILS PERCENT AUTO 0 % (0-6); Hematocrit 37.5 % (37.0-53.0); Hemoglobin 12.9 g/dL (13.5-17.5); IMMATURE GRAN ABSOLUTE AUTO 0.11 K/mm3 (0.00-0.10); IMMATURE GRAN PERCENT AUTO 1 % (0-1); LYMPHOCYTES ABSOLUTE AUTO 0.26 K/mm3 (0.84-5.20); LYMPHOCYTES PERCENT AUTO 2 % (21-46); MONOCYTES PERCENT AUTO 9 % (4-13); Mean Corpuscular HGB 34.1 pg (26.0-34.0); Mean Corpuscular HGB Conc 34.4 g/dL (31.5-36.5); Mean Corpuscular Volume 99 fL (80-100); Mean Platelet Volume 8.8 fL (9.1-12.4); NEUTROPHILS ABSOLUTE AUTO 14.19 K/mm3 (1.96-9.15); NEUTROPHILS PERCENT AUTO 88 % (41-73); Platelet Count 123 K/mm3 (150-400); RDW Coefficient Variation 12.9 % (11.7-14.2); RDW Standard Deviation 46.6 fL (35.1-46.3); Red Blood Cell Count 3.78 M/mm3 (4.30-5.90); White Blood Cell Count 16.11 K/mm3 (4.00-11.30)
[2019-07-19 04:01] LABS: International Normalized Ratio 1.18; Prothrombin Time Results 12.5 Sec (9.7-11.5)
[2019-07-19 04:06] LABS: Alanine Aminotransfer (ALT/SGP 22 U/L (12-78); Albumin, Blood 1.7 g/dL (3.4-5.0); Albumin/Globulin Ratio 0.5 (0.8-1.8); Alk Phos 57 U/L (50-136); Anion Gap 8 mmol/L (6-16); Aspartate Aminotrans (AST/SGOT 40 U/L (12-37); Bilirubin, Total 0.3 mg/dL (0.1-1.0); Blood Urea Nitrogen 22 mg/dL (8-24); CO2, Blood 20 mmol/L (21-32); Calcium, Blood 7.6 mg/dL (8.5-10.1); Chloride, Blood 106 mmol/L (98-108); Globulin, Blood 3.4 g/dL (2.2-4.0); Glomerular Filtration Rate >60 (60-); Glucose, Blood 100 mg/dL (70-99); Potassium, Blood 3.8 mmol/L (3.5-5.5); Sodium, Blood 134 mmol/L (136-145)
[2019-07-19 04:07] LABS: Total Protein, Blood 5.1 g/dL (6.4-8.2)
--- NOTE | 2019-07-19 05:59 | NUR ---
SHIFT SUMMARY PATIENT CONFUSED AND FORGETFUL THROUGHOUT THE NIGHT. PATIENT DOES NOT REMEMBER THAT HE IS AT THE HOSPITAL. PATIENT REDIRECTABLE AT THIS TIME BUT NEEDS TO BE REORIENTED FREQUENTLY. PATIENT ALSO SLIGHTLY IRRITABLE THROUGHOUT THE NIGHT GETTING AGITATED EASILY. PATIENT CALLS OUT FREQUENTLY. PATIENT HAS ASKED FOR BEER SEVERAL TIMES THROUGHOUT THE NIGHT. IV FLUIDS RUNNING PER ORDERS. PATIENT APPEARED TO SLEEP WELL FOR SEVERAL HOURS LAST NIGHT. PATIENT HAS BEEN AWAKE AND WATCHING TV FOR THE LAST SEVERAL HOURS BUT CURRENTLY APPEARS TO BE NAPPING ON AND OFF. WILL CONTINUE TO MONITOR PATIENT AND REPORT TO ONCOMING RN.
--- NOTE | 2019-07-19 17:45 | NUR ---
SHIFT SUMMARY PT ALERT AND ORIENTED TO SELF AND PLACE. PT CONFUSED AND FORGETFUL AT TIMES. VS STABLE. BP IMPROVED THIS SHIFT. PT DENIES ANY PAIN. HR NSR. FRAUSTO PATENT AND DRAINING DARK YELLOW URINE. RECTAL TUBE PLACED THIS AFTERNOON DUE TO FREQUENT LIQUID, INCONTINENT BM. DR. BABCOCK AWARE AND GI PANEL SENT. PT REPOSITIONED Q2H. PT UP WITH PHYSICAL THERAPY THIS SHIFT. MONITORING CIWA. WILL CONTINUE TO MONITOR AND REPORT TO ONCOMING RN. BED ALARM ON.
--- NOTE | 2019-07-19 18:34 | NUR ---
PT IS ADMITTED FOR UROSEPSIS. PT HAS FRAUSTO CALTHETER IN PLACE TO GRAVITY DRAIN. URINE IS DARK YELLOW IN COLOR. PT HAS HAD FREQUENT WATERY/LOOSE STOOLS THROUGHOUT THE DAY. DUE TO SKIN BREAKDOWN A RECTAL TUBE WAS INSERTED BY STAFF NURSE, GI PANEL WAS SENT INTO LAB. PER DR. BABCOCK'S REQUEST. PT IS CONFUSED AT AGGITATED AT TIMES. PT IS ALERT TO SELF. PT IS TURNED Q 2 HOURS, WITH TWO PERSON ASSISTANCE. CALL LIGHT IS WITHIN REACH.
[2019-07-19 19:44] LABS: Campylobacter Sp Not Detected (NOT DETECT)
[2019-07-19 19:45] LABS: E. Coli O157 Not Detected (NOT DETECT); Enteroaggregative E. coli-EAEC Not Detected (NOT DETECT); Enteropathogenic E. coli-EPEC Not Detected (NOT DETECT); Enterotoxigenic E. coli-ETEC Not Detected (NOT DETECT); Plesiomonas Shigelloides Not Detected (NOT DETECT); Salmonella Sp Not Detected (NOT DETECT); Shiga Toxin-prod E. coli-STEC Not Detected (NOT DETECT); Shigella/Enteroin E. coli-EIEC Not Detected (NOT DETECT); Vibrio Cholerae Not Detected (NOT DETECT); Vibrio Sp Not Detected (NOT DETECT); Yersinia Enterocolitica Not Detected (NOT DETECT)
[2019-07-19 19:46] LABS: Adenovirus F 40/41 Not Detected (NOT DETECT); Astrovirus Not Detected (NOT DETECT); Cryptosporidium Not Detected (NOT DETECT); Cyclospora Cayetanensis Not Detected (NOT DETECT); Entamoeba Histolytica Not Detected (NOT DETECT); Giardia Lamblia Not Detected (NOT DETECT); Norovirus GI/GII Not Detected (NOT DETECT); Rotavirus A Not Detected (NOT DETECT); Sapovirus Not Detected (NOT DETECT)
[2019-07-20 05:07] LABS: International Normalized Ratio 2.04
--- NOTE | 2019-07-20 06:03 | NUR ---
SHIFT SUMMARY .. ASSUMED CARE AT 1900. CIWA AT END OF SHIFT ABOUT 8 AND SAME THRU SHIFT. REPOSITIONED Q 2 HR AND EXTENSIVE SKIN CARE DONE. RECTAL TUBE HAS A SLIGHT LEAK WITH POSITION ADJUSTMENT . LIQUID CLEAR MOSTLY BROWNISH YELLOW RETURNS. URINE CONCENTRATED MICHAEL/ CLOUDY. PLACED CALL TO MOISES RATE INSERTER FOR C DIFF RESULTS AND VANCO ORDER . ORIENTED PERSON AND FAMILY NAMES. OCC KNOWS PLACE BUT NOT [place] PRESIDENT. HALLUCINATES THRU NOC BY CALLING OUT A FAMILY NAME WHO HE THINKS IS IN THE ROOM. A LOT OF FOUL LANGUAGE AND EASILY AGGITATAED AND ANGRY WITH AWAKENED FOR REPOSITIONING AND SKIN CARE. ASSISTED IN CLOSE OBSERVATION FOR EATING BUT USUALLY NOT INTERESTED IN EATING, A FEW TIMES YELLS OUT HE IS NAUSEATED . ZOFRAN GIVEN X 1. LOMOTAL X1 . DENIES CRAMPING AND SEEMS TO THINK HIS DISTENDED ABD IS NORMAL. FREQ LOOSE COUGH STATED ON ADMIT. LUNGS MOSTLY CLEAR W/ RARE CONGESTED SOUND THAT CLEARS W/ COUGH AND COOPERATIVE IN FOLLOWING MOST REQUESTS. EASILY REDIRECTED AND ABLE TO CALM W/ DISCUSSION. NO SWALLOWING DIFFICULTY NOTED. NO EMESIS. EXPECTORATES ONLY CLEAR SPUTUM AND STRONG COUGH AND EFFORT. SR/ PAC/ PVC
--- NOTE | 2019-07-20 10:29 | NUR ---
UPDATE PT ALERT AND ORIENTED. VS STABLE. PT HAD BROWN EMESIS THIS AM APPROXIMATELY 400ML. ABD DISTENDED WITH HYPERACTIVE BOWEL TONES THROUGHOUT. RECTAL TUBE IN PLACE WITH LIQUID YELLOW STOOL. SPOKE WITH DR. SADIQ GARING NO AM LABS. LABS ORDERED, BUT PO POTASSIUM HELD THIS AM. WILL CONTINUE TO MONITOR CLOSELY.
[2019-07-20 11:00] LABS: BASOPHILS ABSOLUTE AUTO 0.05 K/mm3 (0.00-0.23); BASOPHILS PERCENT AUTO 0 % (0-2); EOSINOPHILS ABSOLUTE AUTO 0.01 K/mm3 (0.00-0.68); EOSINOPHILS PERCENT AUTO 0 % (0-6); Hematocrit 44.5 % (37.0-53.0); Hemoglobin 14.8 g/dL (13.5-17.5); IMMATURE GRAN ABSOLUTE AUTO 0.23 K/mm3 (0.00-0.10); IMMATURE GRAN PERCENT AUTO 1 % (0-1); LYMPHOCYTES ABSOLUTE AUTO 0.32 K/mm3 (0.84-5.20); LYMPHOCYTES PERCENT AUTO 2 % (21-46); MONOCYTES ABSOLUTE AUTO 1.36 K/mm3 (0.16-1.47); MONOCYTES PERCENT AUTO 8 % (4-13); Mean Corpuscular HGB 33.9 pg (26.0-34.0); Mean Corpuscular HGB Conc 33.3 g/dL (31.5-36.5); Mean Platelet Volume 8.9 fL (9.1-12.4); NEUTROPHILS PERCENT AUTO 88 % (41-73); Platelet Count 132 K/mm3 (150-400); RDW Coefficient Variation 13.1 % (11.7-14.2); RDW Standard Deviation 50.2 fL (35.1-46.3); Red Blood Cell Count 4.37 M/mm3 (4.30-5.90); White Blood Cell Count 16.87 K/mm3 (4.00-11.30)
[2019-07-20 11:08] LABS: Anion Gap 7 mmol/L (6-16); Blood Urea Nitrogen 16 mg/dL (8-24); Bun/Creatinine Ratio 15.8 (12.0-20.0); CO2, Blood 17 mmol/L (21-32); Calcium, Blood 8.3 mg/dL (8.5-10.1); Chloride, Blood 113 mmol/L (98-108); Creatinine, Blood 1.01 mg/dL (0.60-1.20); Glomerular Filtration Rate >60 (60-); Glucose, Blood 132 mg/dL (70-99); Potassium, Blood 4.3 mmol/L (3.5-5.5); Sodium, Blood 137 mmol/L (136-145)
[2019-07-20 11:09] LABS: Mean Corpuscular Volume 102 fL (80-100)
[2019-07-20 11:32] LABS: Alanine Aminotransfer (ALT/SGP 33 U/L (12-78); Albumin, Blood 1.8 g/dL (3.4-5.0); Albumin/Globulin Ratio 0.4 (0.8-1.8); Alk Phos 66 U/L (50-136); Anion Gap 6 mmol/L (6-16); Aspartate Aminotrans (AST/SGOT 37 U/L (12-37); Bilirubin, Total 0.2 mg/dL (0.1-1.0); Blood Urea Nitrogen 16 mg/dL (8-24); Bun/Creatinine Ratio 17.1 (12.0-20.0); CO2, Blood 19 mmol/L (21-32); Calcium, Blood 7.9 mg/dL (8.5-10.1); Chloride, Blood 113 mmol/L (98-108); Creatinine, Blood 0.93 mg/dL (0.60-1.20); Glomerular Filtration Rate >60 (60-); Glucose, Blood 129 mg/dL (70-99); Potassium, Blood 4.3 mmol/L (3.5-5.5); Sodium, Blood 138 mmol/L (136-145); Total Protein, Blood 5.8 g/dL (6.4-8.2)
--- NOTE | 2019-07-20 17:40 | NUR ---
SHIFT SUMMARY PT ALERT TO SELF AND FOLLOWING DIRECTIONS. PT MORE CONFUSED AND AGITATED THIS AFTERNOON. VS STABLE. HR NSR. DR. RAJAN BY THIS EVENING WITH PLANS TO KEEP PT NPO. NG TUBE TO BE PLACED IF PT CONTINUES TO VOMIT. NO EMESIS SINCE THIS AM. RECTAL TUBE IN PLACE DRAINING TO GRAVITY. FRAUSTO PATENT AND DRAINING DARK YELLOW URINE. PT REPOSITIONED Q2H. ABD STILL DISTENDED, BUT PT PASSING GAS. WILL CONTINUE TO MONITOR AND REPORT TO ONCOMING RN.
--- NOTE | 2019-07-20 17:59 | NUR ---
PT IS ALERT TO SELF, BUT CONFUSED WITH LOCATION, YEAR AND FAMILY. PT IS AGGITATED DURING CARE. PT HAD A CT SCAN OF THE ABDOMEN DUE TO A DISTENDED, FIRM ABDOMEN WITH N/V. NG TUBE TO BE INSERTED IF VOMITING PERSISTS. FRAUSTO CATHETER TO GRAVITY DRAIN, DRAINING DARK YELLOW URINE. RECTAL TUBE IN PLACE DUE TO FREQUENT WATERY STOOLS. PT IS NPO AT THIS TIME. PT IS REPOSITIONED Q 2 HRS WITH SKIN CARE NEEDED. PT RECIEVED 1 MG OF ATIVAN AT 1430 FOR A CIWA SCORE OF 8. IV INFILTRATED IN THE UPPER RIGHT ARM. IV WAS D/C. PT HAS PATENT IV IN THE RIGHT FOREARM.
--- NOTE | 2019-07-21 05:49 | NUR ---
SHIFT SUMMARY PT SLEEPING IN ROOM COMFORTABLY AT THIS TIME. NO ACUTE CHANGES IN STATUS T/O NIGHT. PT WAS TURNED Q2 HRS PER PROTOCOL FOR WOUNDS ON PT BACKSIDE. PT DENIED CP OR SOB T/O NIGHT. RESP EVEN UNLABORED ON RA W/ SATS >92%. PT AT TIMES AGGITATED AND ANGRY WITH STAFF. REQUIRED FREQUENT REDIRECTION. RECTAL TUBE IN PLACE DRAINING TO GRAVITY. STOOL APPEARS TO BE THICKENING, AND DARKENING IN COLOR. FRAUSTO CATH IN PLACE DRAINING CLEAR YELLOW URINE. BARRIER CREAM IN PLACE ON [place] AREA D/T EARLIER LEAKAGE OF STOOL AND SKIN BREAKDOWN AROUND [place] AREA. PT DENIED OTHER NEEDS. CALL LIGHT IN REACH.
[2019-07-21 11:14] LABS: BASOPHILS ABSOLUTE AUTO 0.02 K/mm3 (0.00-0.23); BASOPHILS PERCENT AUTO 0 % (0-2); EOSINOPHILS ABSOLUTE AUTO 0.19 K/mm3 (0.00-0.68); EOSINOPHILS PERCENT AUTO 2 % (0-6); Hematocrit 39.3 % (37.0-53.0); Hemoglobin 13.3 g/dL (13.5-17.5); IMMATURE GRAN ABSOLUTE AUTO 0.09 K/mm3 (0.00-0.10); IMMATURE GRAN PERCENT AUTO 1 % (0-1); LYMPHOCYTES ABSOLUTE AUTO 0.51 K/mm3 (0.84-5.20); LYMPHOCYTES PERCENT AUTO 4 % (21-46); MONOCYTES ABSOLUTE AUTO 1.18 K/mm3 (0.16-1.47); MONOCYTES PERCENT AUTO 10 % (4-13); Mean Corpuscular HGB 34.1 pg (26.0-34.0); Mean Corpuscular HGB Conc 33.8 g/dL (31.5-36.5); Mean Corpuscular Volume 101 fL (80-100); Mean Platelet Volume 9.1 fL (9.1-12.4); NEUTROPHILS ABSOLUTE AUTO 10.01 K/mm3 (1.96-9.15); NEUTROPHILS PERCENT AUTO 83 % (41-73); Platelet Count 140 K/mm3 (150-400); RDW Coefficient Variation 13.4 % (11.7-14.2)
[2019-07-21 11:34] LABS: Alanine Aminotransfer (ALT/SGP 28 U/L (12-78); Albumin, Blood 1.4 g/dL (3.4-5.0); Albumin/Globulin Ratio 0.4 (0.8-1.8); Alk Phos 54 U/L (50-136); Anion Gap 4 mmol/L (6-16); Aspartate Aminotrans (AST/SGOT 30 U/L (12-37); Bilirubin, Total 0.3 mg/dL (0.1-1.0); Blood Urea Nitrogen 11 mg/dL (8-24); Bun/Creatinine Ratio 11.7 (12.0-20.0); CO2, Blood 19 mmol/L (21-32); Calcium, Blood 7.7 mg/dL (8.5-10.1); Chloride, Blood 115 mmol/L (98-108); Creatinine, Blood 0.94 mg/dL (0.60-1.20); Globulin, Blood 3.6 g/dL (2.2-4.0); Glomerular Filtration Rate >60 (60-); Glucose, Blood 75 mg/dL (70-99); Potassium, Blood 4.1 mmol/L (3.5-5.5); Sodium, Blood 138 mmol/L (136-145)
--- NOTE | 2019-07-21 14:57 | NUR ---
TRANSFER PT UP TO THE ROOM FROM PCU, PT ORIENTED TO ROOM AND CALL SYSTEM, PT SLIGHTLY CONFUSED, BUT PLEASANT, BED ALARM ON FOR SAFETY
--- NOTE | 2019-07-21 15:01 | NUR ---
PT STATUS CHANGED TO MEDICAL STATUS WITH NO TELE. VITALS HAS BEEN STABLE FOR THE SHIFT. PT IS ALERT ABLE TO STATE NAME AND , STILL CONFUSED AT TIMES. PT CONTINUES ON IV ABO, WAS NPO CHANGED TO CLEAR LIQUID DIET WHICH PT IS TOLERATING WELL. OCCASIONAL COUGH WITH THICK WHITE MUCOUS PT WAS ABLE TO COUGH OUT. PT RECTAL TUBE STILL IN PLACE STOOL STILL LOOSE AND RUNNY. FRAUSTO CATHETER DRAINING VIA GRAVITY YELLOW MICHAEL IN COLOR. CIWA STABLE AT 5-6. LIBRIUM WAS DC'D, ATIVAN ORDERED PRN. PT PARTICIPATED WITH THERAPY TODAY WITH NO ISSUES, REPORT GIVEN TO DANIA NATHAN PT TRANSPORTED VIA BED ACCOMPANIED BY PCT.
--- NOTE | 2019-07-21 17:41 | NUR ---
SUMMARY PT RESTING QUIETLY IN BED, HAS REMAINED PLEASANTLY CONFUSED, REQUESTED ALL THE LIGHTS OFF, NEEDED TO BE REORIENTED TO THE ROOM MANY TIMES, NO ACUTE CHANGES, WILL CONT TO MONITOR
--- NOTE | 2019-07-21 21:01 | NUR ---
07/21/191929 PT YELLING AND WANTING TO "GET OUT OF HERE!" RN REORIENTED PT TO SURROUNDINGS BUT STATES HE DOESN"T WANT TO BE HERE WITH "THIS OTHER DAMON". NOBODY ELSE IN ROOM BUT RN AND PT. ATTEMPTING TO GET OUT OF BED BY SWINGING HIS LEG OVER SIDERAILS. BED ALARM ON. CIWA = 13. ATTEMPTED TO MEDICATE BUT IV INFILTRATED.
--- NOTE | 2019-07-22 07:26 | NUR ---
07/22/19 0530 PT HAS BEEN VERY CONFUSED, RESTLESS AND HALLUCINATING ON AND OFF THIS SHIFT. CIWA SCORES HAVE BEEN UP AND DOWN, SEE MAR FOR MEDS GIVEN FOR HIGH SCORES. PT YELLS PROFANITY AT TIMES. FRAUSTO AND RECTAL TUBE IN PLACE. SCANT OUTPUT FROM RECTAL TUBE THIS SHIFT. PT REPOSITIONED Q 2 HOURS BUT RESISTS TURNING. VERY ANXIOUS AT TIMES WITH CARE. VITALS STABLE.
[2019-07-22 11:53] LABS: BASOPHILS ABSOLUTE AUTO 0.03 K/mm3 (0.00-0.23); BASOPHILS PERCENT AUTO 0 % (0-2); EOSINOPHILS ABSOLUTE AUTO 0.21 K/mm3 (0.00-0.68); EOSINOPHILS PERCENT AUTO 2 % (0-6); Hematocrit 38.4 % (37.0-53.0); Hemoglobin 12.7 g/dL (13.5-17.5); IMMATURE GRAN ABSOLUTE AUTO 0.08 K/mm3 (0.00-0.10); IMMATURE GRAN PERCENT AUTO 1 % (0-1); LYMPHOCYTES ABSOLUTE AUTO 0.48 K/mm3 (0.84-5.20); LYMPHOCYTES PERCENT AUTO 5 % (21-46); MONOCYTES ABSOLUTE AUTO 1.02 K/mm3 (0.16-1.47); MONOCYTES PERCENT AUTO 11 % (4-13); Mean Corpuscular HGB 33.4 pg (26.0-34.0); Mean Corpuscular HGB Conc 33.1 g/dL (31.5-36.5); Mean Corpuscular Volume 101 fL (80-100); Mean Platelet Volume 8.7 fL (9.1-12.4); NEUTROPHILS ABSOLUTE AUTO 7.88 K/mm3 (1.96-9.15); NEUTROPHILS PERCENT AUTO 81 % (41-73); Platelet Count 173 K/mm3 (150-400); RDW Coefficient Variation 13.2 % (11.7-14.2); RDW Standard Deviation 49.2 fL (35.1-46.3)
[2019-07-22 12:11] LABS: Alanine Aminotransfer (ALT/SGP 22 U/L (12-78); Albumin, Blood 1.6 g/dL (3.4-5.0); Albumin/Globulin Ratio 0.5 (0.8-1.8); Alk Phos 51 U/L (50-136); Anion Gap 4 mmol/L (6-16); Aspartate Aminotrans (AST/SGOT 18 U/L (12-37); Bilirubin, Total 0.2 mg/dL (0.1-1.0); Blood Urea Nitrogen 10 mg/dL (8-24); CO2, Blood 24 mmol/L (21-32); Calcium, Blood 7.5 mg/dL (8.5-10.1); Chloride, Blood 114 mmol/L (98-108); Globulin, Blood 3.2 g/dL (2.2-4.0); Glomerular Filtration Rate >60 (60-); Glucose, Blood 73 mg/dL (70-99); Potassium, Blood 3.4 mmol/L (3.5-5.5); Sodium, Blood 142 mmol/L (136-145); Total Protein, Blood 4.8 g/dL (6.4-8.2)
--- NOTE | 2019-07-22 16:30 | NUR ---
BP 81/40. MESSAGE LEFT WITH DR. BABCOCK ABOUT PT BLOOD PRESSURE OF 81/40. PT NOT EATING OR DRINKING MUCH, MAY BE RELATED TO DEHYDRATION. AWAITING CALL BACK. WILL CONTINUE TO MONITOR.
--- NOTE | 2019-07-22 16:31 | NUR ---
SPOKE WITH PT SON PT SON REPORTED THAT PT NORMALLY AMBULATED WITH A WALKER INDEPEDENTLY. PT SON REQUESTING PT BE DC'D HOME TO HIM RATHER THAN TO A SNF. DC PLANNING NOTIFIED. OTHERWISE PT SON UPDATED ON PT CONDITION.
--- NOTE | 2019-07-22 17:29 | NUR ---
SHIFT SUMMARY PT SLEPT MOST THE DAY. ALERT TO VERBAL STIMULI, BUT BACK TO SLEEP QUICKLY. PT REFUSED TO EAT OR DRINK THIS SHIFT. UNABLE TO STAY AWAKE LING ENOUGH TO EAT OR PARTICIPATE IN THERAPY. PT RECTAL TUBE REMOVED. NO BM SINCE REMOVAL. PT BP LOW THIS AFTERNOON. DR. BABCOCK ORDERED 250 BOLUS AND THEN CLINIMIX AT 75 AFTER. PT STARTING TO WAKE UP MORE THIS EVENING. CALLING OUT INTO HALLWAY AND CUSSING. NO OTHER CHANGES IN ASSESSMENT AT THIS TIME. OTHER VITALS STABLE. WILL CONTINUE TO MONITOR UNTIL TURNOVER IS COMPLETE.
[2019-07-23 05:32] LABS: BASOPHILS ABSOLUTE AUTO 0.04 K/mm3 (0.00-0.23); BASOPHILS PERCENT AUTO 0 % (0-2); EOSINOPHILS ABSOLUTE AUTO 0.23 K/mm3 (0.00-0.68); EOSINOPHILS PERCENT AUTO 2 % (0-6); Hematocrit 37.4 % (37.0-53.0); Hemoglobin 12.7 g/dL (13.5-17.5); IMMATURE GRAN PERCENT AUTO 1 % (0-1); LYMPHOCYTES ABSOLUTE AUTO 0.63 K/mm3 (0.84-5.20); LYMPHOCYTES PERCENT AUTO 6 % (21-46); MONOCYTES ABSOLUTE AUTO 1.04 K/mm3 (0.16-1.47); MONOCYTES PERCENT AUTO 10 % (4-13); Mean Corpuscular HGB 33.9 pg (26.0-34.0); Mean Corpuscular Volume 100 fL (80-100); Mean Platelet Volume 8.8 fL (9.1-12.4); NEUTROPHILS ABSOLUTE AUTO 8.38 K/mm3 (1.96-9.15); NEUTROPHILS PERCENT AUTO 80 % (41-73); Platelet Count 162 K/mm3 (150-400); RDW Coefficient Variation 13.2 % (11.7-14.2); RDW Standard Deviation 48.8 fL (35.1-46.3); Red Blood Cell Count 3.75 M/mm3 (4.30-5.90); White Blood Cell Count 10.42 K/mm3 (4.00-11.30)
--- NOTE | 2019-07-23 05:58 | NUR ---
SUMMARY NO NEW ISSUES NOTED. PT SLEPT OFF AND ON. PT MORE ALERT AND INTERACTING W/ STAFF. PT SLEPT WELL T/O SHIFT. PT PULLED OUT IV THIS AM. NEW IV ACCESSED. PT CURRENTLY SLEEPING AND RBEATHING EASY. CALL LIGHT IN REACH. BED ALARM ON.
[2019-07-23 06:03] LABS: Alanine Aminotransfer (ALT/SGP 20 U/L (12-78); Albumin, Blood 1.6 g/dL (3.4-5.0); Albumin/Globulin Ratio 0.5 (0.8-1.8); Alk Phos 51 U/L (50-136); Anion Gap 6 mmol/L (6-16); Aspartate Aminotrans (AST/SGOT 17 U/L (12-37); Bilirubin, Total 0.4 mg/dL (0.1-1.0); Blood Urea Nitrogen 10 mg/dL (8-24); CO2, Blood 23 mmol/L (21-32); Calcium, Blood 7.6 mg/dL (8.5-10.1); Chloride, Blood 114 mmol/L (98-108); Creatinine, Blood 0.91 mg/dL (0.60-1.20); Globulin, Blood 3.2 g/dL (2.2-4.0); Glomerular Filtration Rate >60 (60-); Glucose, Blood 94 mg/dL (70-99); Sodium, Blood 143 mmol/L (136-145); Total Protein, Blood 4.8 g/dL (6.4-8.2)
--- NOTE | 2019-07-23 09:51 | NUR ---
PT SON UPDATED. PT BRANDI BASS UPDATED ON PT THIS AM.
--- NOTE | 2019-07-23 12:08 | NUR ---
DIET ADVANCE/ CLINIMIX PT DIET ADVANCED TO FULL LIQUIID PER DR. TUCKER. ONE BAG OF CLINIMIX ALSO ORDERED DUE TO LACK OF APPETITE. ALTHOUGH APPETITE IS IMPROVING.
--- NOTE | 2019-07-23 14:57 | NUR ---
BP 89/49. DR. TUCKER NOTIFIED OF PT BP THIS AFTERNOON. DR. TUCKER STATES HE WILL PLACE ORDERS. WILL CONTINE TO MONITOR.
--- NOTE | 2019-07-23 17:26 | NUR ---
SHIFT SUMMARY PT ALERT MOST OF THE DAY. TALKING CLEARER AND EATING MORE. PT UPGRADED TO FULL LIQUID DIET. TOLERATING WELL. PT HAD ONE LIQUID BM THIS SHIFT. PT RESTARTED ON CLINIMIX THIS SHIFT. CLINIMIX CURRENTLY PAUSED FOR POTASSIUM ACETATE INFUSION AND THEN NS WITH 20KCL INFUSION. TO BE RESTARTED AFTER POTASSIUM INFUSIONS ARE FINISHED. PT BP THIS AFTERNOON 89/49. SEE NOTE. PT LAST BP 109/51 WITH IV FLUIDS RUNNING. OTHER VITALS STABLE. PT WORKED WITH PT & OT THIS SHIFT. NO OTHER ACUTE CHANGES IN ASSESSMENT AT THIS TIME. WILL CONTINUE TO MONITOR UNTIL TURNOVER IS COMPLETE.
[2019-07-24 05:03] LABS: BASOPHILS ABSOLUTE AUTO 0.03 K/mm3 (0.00-0.23); BASOPHILS PERCENT AUTO 0 % (0-2); EOSINOPHILS ABSOLUTE AUTO 0.24 K/mm3 (0.00-0.68); EOSINOPHILS PERCENT AUTO 3 % (0-6); Hematocrit 33.7 % (37.0-53.0); Hemoglobin 11.6 g/dL (13.5-17.5); IMMATURE GRAN ABSOLUTE AUTO 0.13 K/mm3 (0.00-0.10); IMMATURE GRAN PERCENT AUTO 2 % (0-1); LYMPHOCYTES ABSOLUTE AUTO 0.59 K/mm3 (0.84-5.20); LYMPHOCYTES PERCENT AUTO 7 % (21-46); MONOCYTES ABSOLUTE AUTO 0.77 K/mm3 (0.16-1.47); MONOCYTES PERCENT AUTO 10 % (4-13); Mean Corpuscular HGB 33.7 pg (26.0-34.0); Mean Corpuscular HGB Conc 34.4 g/dL (31.5-36.5); Mean Corpuscular Volume 98 fL (80-100); Mean Platelet Volume 8.5 fL (9.1-12.4); NEUTROPHILS ABSOLUTE AUTO 6.35 K/mm3 (1.96-9.15); NEUTROPHILS PERCENT AUTO 78 % (41-73); Platelet Count 166 K/mm3 (150-400); RDW Coefficient Variation 13.1 % (11.7-14.2); RDW Standard Deviation 46.8 fL (35.1-46.3); Red Blood Cell Count 3.44 M/mm3 (4.30-5.90); White Blood Cell Count 8.11 K/mm3 (4.00-11.30)
[2019-07-24 05:22] LABS: Anion Gap 3 mmol/L (6-16); Blood Urea Nitrogen 9 mg/dL (8-24); Bun/Creatinine Ratio 11.1 (12.0-20.0); CO2, Blood 25 mmol/L (21-32); Calcium, Blood 7.3 mg/dL (8.5-10.1); Chloride, Blood 113 mmol/L (98-108); Creatinine, Blood 0.81 mg/dL (0.60-1.20); Glomerular Filtration Rate >60 (60-); Glucose, Blood 81 mg/dL (70-99); Potassium, Blood 3.1 mmol/L (3.5-5.5); Sodium, Blood 141 mmol/L (136-145)
--- NOTE | 2019-07-24 07:24 | NUR ---
PT continued on IVF with potassium & he had low potassium this AM. Garrison patent drains large amts of yellow urine. Perianal excoration skin & garrison care after large sticky brown BM. Confused hollers out at times. CYNTHIA onofre after neg score of 5 x 2 & prior shifts.
--- NOTE | 2019-07-24 16:25 | NUR ---
SHIFT SUMMARY- PT A/O TO SELF ONLY. PT YELLS OUT FOR SON FREQUENTLY AND NEEDS FREQUENTLY REORIENTED AND CURSING AT STAFF AT TIMES. PO ATIVAN GIVEN X1. PT PULLING ON LINES AND FOLLEY AT TIMES. LS DIMINISHED, ON RA. FRAUSTO PATENT AND DRAINING. INCONT OF LIQUID STOOL X2. DIET INCREASED TO MECHANICAL SOFT, REMAINS ON CLINIMIX. KPHOS GIVEN FOR POTASSIUM OF 3.1. 2 ASSIST UP TO CHAIR. SNF RECOMMENDATIONS. NO OTHER ACUTE CHANGES THIS SHIFT.
--- NOTE | 2019-07-24 17:07 | NUR ---
Assumed care Patient transferred from Med 326 to [facility] 351. Patient arrived via recliner. Settled to room, call light near, chair alarm on. Will continue to monitor.
--- NOTE | 2019-07-24 17:24 | NUR ---
REPORT TO COBY, PT MOVED TO ROOM 351. SON BRANDI CALLED AND NOTIFIED OF CHANGE IN ROOM. PER SON PT DOES NOT HAVE A CHRONIC FRAUSTO AND REPORTS HE HAS NOT HAD ONE FOR SOME TIME. SON ALSO REPORTS PT IS ONLY ON WARFARIN AT HOME BUT STATES HE DOES NOT KNOW HOW OFTEN HE TAKES IT, ACCORDING [facility] PT HAS NOT HAD IT FILLED SINCE OCT 2018. SON ALSO REPORTS HE HAS PROMISED HIS DAD THAT HE WOULD NOT SEND HIM TO A FACILITY AND WANTS HIM TO COME HOME HOWEVER SON ALSO REPORTS THAT IF HE IS BAD ENOUGH HE COULD TALK TO HIS DAD AND SEE IF HE WOULD GO TO A SNF. SON WAS DIFFICULT TO UNDERSTAND AND FOLLOW DURING THE CONVERSATION.
--- NOTE | 2019-07-25 05:22 | NUR ---
SHIFT SUMMARY PT SLEPT MUCH OF THE NIGHT. DID AWAKEN AT TIMES AND WOULD CALL OUT FOR SON "BRANDI". PT ONLY ORIENTED TO SELF. PLEASANTLY CONFUSED. REMAINED IN BED THROUGHOUT THE NIGHT. FRAUSTO CATHETER IN PLACE, PATENT AND DRAINING. PT HAS CONTINUED TO HAVE LIQUID STOOL. INCONTINENT. SKIN IN [place] AREA AND BUTTOCKS EXCORIATED FROM STOOL. PT REQUIRES TWO PEOPLE FOR TURNING, BODY STIFF AND WEAK. VITAL SIGNS STABLE. WILL CONTINUE TO MONITOR AND REPORT TO DAY RN.
[2019-07-25 05:23] LABS: BASOPHILS ABSOLUTE AUTO 0.07 K/mm3 (0.00-0.23); BASOPHILS PERCENT AUTO 1 % (0-2); EOSINOPHILS ABSOLUTE AUTO 0.29 K/mm3 (0.00-0.68); EOSINOPHILS PERCENT AUTO 3 % (0-6); Hematocrit 36.2 % (37.0-53.0); Hemoglobin 12.3 g/dL (13.5-17.5); IMMATURE GRAN ABSOLUTE AUTO 0.27 K/mm3 (0.00-0.10); IMMATURE GRAN PERCENT AUTO 3 % (0-1); LYMPHOCYTES ABSOLUTE AUTO 0.79 K/mm3 (0.84-5.20); LYMPHOCYTES PERCENT AUTO 8 % (21-46); MONOCYTES ABSOLUTE AUTO 0.93 K/mm3 (0.16-1.47); MONOCYTES PERCENT AUTO 9 % (4-13); Mean Corpuscular HGB 33.5 pg (26.0-34.0); Mean Corpuscular Volume 99 fL (80-100); Mean Platelet Volume 8.6 fL (9.1-12.4); NEUTROPHILS ABSOLUTE AUTO 7.98 K/mm3 (1.96-9.15); NEUTROPHILS PERCENT AUTO 77 % (41-73); Platelet Count 203 K/mm3 (150-400); RDW Standard Deviation 47.1 fL (35.1-46.3); Red Blood Cell Count 3.67 M/mm3 (4.30-5.90); White Blood Cell Count 10.33 K/mm3 (4.00-11.30)
[2019-07-25 05:38] LABS: Albumin, Blood 1.7 g/dL (3.4-5.0); Anion Gap 5 mmol/L (6-16); Blood Urea Nitrogen 13 mg/dL (8-24); Bun/Creatinine Ratio 16.2 (12.0-20.0); CO2, Blood 25 mmol/L (21-32); Calcium, Blood 7.3 mg/dL (8.5-10.1); Chloride, Blood 108 mmol/L (98-108); Glomerular Filtration Rate >60 (60-); Glucose, Blood 81 mg/dL (70-99); Phosphorus, Blood 2.5 mg/dL (2.5-4.9); Potassium, Blood 3.2 mmol/L (3.5-5.5); Sodium, Blood 138 mmol/L (136-145)
--- NOTE | 2019-07-25 17:28 | NUR ---
PT IS ALERT, DISORIENTED, THE PT IS A MAX ASSIST UP TO THE CHAIR, THE PT WAS ABLE TO STAND WITH THE FWW, HOWEVER, WAS NOT ABLE TO TRANSFER, THE PT APPEARS TO BE BREATHING EASILY AT REST, THE PT WAS MILDLY AGITATED AT ONE TIME THIS AFTERNOON, INSISTED THAT HE NEEDED TO GO HOME, ATIVAN WAS GIVEN X1 TODAY, PT IS UP IN THE CHAIR FOR MEALS, CALL LIGHT IN REACH, CHAIR ALARM ON, WILL CONTINUE TO MONITOR AND ASSESS FOR CHANGES
--- NOTE | 2019-07-25 17:33 | NUR ---
STUDENT ASSESSMENT I WAS PRESENT DURING AND AGREE WITH THE STUDENTS AM SHIFT ASSESSMENT
--- NOTE | 2019-07-25 18:07 | NUR ---
SHIFT SUMMARY PT IS ALERT AND ORIENTED TO SELF ONLY. HE HAS BEEN CALM AND PLEASANT THROUGHOUT MOST OF THE DAY WITH PERIODS OF ANXIETY AND AGITATION. MEDICATED WITH PO ATIVAN FOR AGITATION. PT IS MAX ASSIST AND HAS BEEN TRANSFERED TO CHAIR FOR AFTERNOON AND DINNER TIME. SEVERE REDENNING AND EXCORIATION OF PT'S [place] AREA AND BACKSIDE DUE TO FREQUENT LOOSE STOOLS IS A MAJOR AREA OF CONCERN. PT REF LUNCH AND ATE ONLY A COUPLE BITES OF DINNER. PT BACKSIDE IS PAINFUL WHEN CLEANED BUT HE REPORTS NO PAIN OTHERWISE.
[2019-07-26 05:38] LABS: Albumin, Blood 1.9 g/dL (3.4-5.0); Anion Gap 3 mmol/L (6-16); Blood Urea Nitrogen 17 mg/dL (8-24); Bun/Creatinine Ratio 22.3 (12.0-20.0); CO2, Blood 29 mmol/L (21-32); Calcium, Blood 7.7 mg/dL (8.5-10.1); Chloride, Blood 105 mmol/L (98-108); Creatinine, Blood 0.76 mg/dL (0.60-1.20); Glomerular Filtration Rate >60 (60-); Glucose, Blood 90 mg/dL (70-99); Potassium, Blood 3.2 mmol/L (3.5-5.5); Sodium, Blood 137 mmol/L (136-145)
--- NOTE | 2019-07-26 05:40 | NUR ---
SHIFT SUMMARY: VSS. AFEB. AAOX1. INTERMITTENTLY IRRITABLE AND SWEARING ABOUT SITUATION. COOPERATIVE DURING INTERACTIONS. F/C PATENT AND DRAINING MICHAEL URINE W/SMALL AMT OF SEDIMENT. INCONT OF LIQUID SMEARS OF STOOL TONIGHT. IV CLINIMIX COMPLETED. INFREQUENT WET SOUNDING COUGH. LSCTA EXCEPT MOISÉS EXP WHEEZE. T/F BACK TO BED AT HS VIA LIFT. APPEARS TO HAVE SLEPT WELL THROUGH MOST OF THE NIGHT. NO ACUTE CHANGES, WILL CONT TO MONITOR.
--- NOTE | 2019-07-26 18:42 | NUR ---
PATIENT IS ALERT AND ORIENTED TO SELF AND FAMILY. HE HAS BEEN COOPERATIVE WITH CARE TODAY. HE HAD 3 INCONTINENT LIQUID BM'S TODAY. PHYSICAL THERAPY WORKED WITH HIM THIS AFTERNOON AND STATED HE IS A 2PA WITH FWW. LATER IN THE AFTERNOON, THE ENVIRONMENTAL SERVICES AIDE AND RN TRIED TO GET THE PATIENT OUT OF THE RECLINER AND INTO BED BUT HE WAS TOO TIRED TO STAND. A LIFT WAS USED TO TRANSFER THE PATIENT. WILL CONTINUE TO MONITOR.
--- NOTE | 2019-07-26 19:15 | NUR ---
ASSUMED CARE RECEIVED REPORT FROM DAY RN. ASSUMED CARE OF PT. RESTING COMFORTABLY AT THIS TIME, NO S/S ACUTE DISTRESS NOTED. RESPS EVEN AND UNLABORED. DENIES NEEDS AT THIS TIME. CALL LIGHT, POSSESSIONS IN REACH, BED IN LOWEST POSITION WITH ALARMS ON. WILL CONTINUE TO MONITOR.
[2019-07-27 05:52] LABS: Albumin, Blood 1.9 g/dL (3.4-5.0); Anion Gap 4 mmol/L (6-16); Blood Urea Nitrogen 16 mg/dL (8-24); Bun/Creatinine Ratio 18.9 (12.0-20.0); CO2, Blood 31 mmol/L (21-32); Calcium, Blood 7.7 mg/dL (8.5-10.1); Chloride, Blood 104 mmol/L (98-108); Creatinine, Blood 0.85 mg/dL (0.60-1.20); Glomerular Filtration Rate >60 (60-); Glucose, Blood 84 mg/dL (70-99); Phosphorus, Blood 2.8 mg/dL (2.5-4.9); Potassium, Blood 3.4 mmol/L (3.5-5.5); Sodium, Blood 139 mmol/L (136-145)
--- NOTE | 2019-07-27 07:31 | NUR ---
SHIFT SUMMARY PT HAS HAD AN UNEVENTFUL NIGHT, WAS MONITORED EVERY 1-2 HOURS WITH NEEDS MET. VS STABLE. PT HAD AN EPISODE OF HEMATURIA, PT DENYING PAIN OR DISCOMFORT. SUBSEQUENT U/O MICHAEL YELLOW. FRAUSTO DRAINING W/O DIFFICULTY. PT SLEPT T/O NIGHT, CALLED APPROPRIATELY FOR NEEDS. CALL LIGHT, POSSESSIONS IN REACH, BED IN LOWEST POSITION WITH ALARM ON. REPORT GIVEN TO JAC LING.
--- NOTE | 2019-07-27 17:48 | NUR ---
PT UP WITH ASSISTANCE WITH [facility]. HE IS CONFUSED BUT PLEASANT AND PREPARING TO DC HOME ON FRIDAY. NO ACUTE CHANGES. SON REQUESTED PT HAVE FRAUSTO PULLED PRIOR TO DC.
[2019-07-28] MEDS ORDERED: FOLI1 PO (14:23)
[2019-07-28] MEDS ORDERED: B-1100 M2 PO (14:24)
[2019-07-28] MEDS ORDERED: K-Phos Origina500 MG PO (14:24)
--- NOTE | 2019-07-28 15:28 | NUR ---
1520 PT DISCHARGED HOME. IV REMOVED PRIOR TO DC. NO SS OF INFECTION NOTED. PT WAS DRESSED IN HIS OWN CLOTHES. SON WAS CALLED AND THIS NURSE GAVE DISCHARGE INSTRUCTIONS TO PTS SON AT CAR SIDE. MEDS FAXED TO [facility]. GAONA TO CALL IN THE NEXT TWO DAYS TO SCHEDULE FOLLOW UP.
== END 2019-07-28 15:17 | disposition home health service (06) | DRG 698 ==
LOC: ER 21:12 → PCU 07-18 01:02 → MEDS 07-18 01:02 → PCU 07-18 01:40 → MEDS 07-21 14:46
PROVIDERS: Emergency Medicine; Family Medicine; Internal Medicine Endocrinology, Diabetes & Metabolism; Internal Medicine Gastroenterology; ADMIT Internal Medicine
DX: T83.511A Infection and inflammatory reaction due to indwelling urethral catheter, initial encounter (principal); A41.50 Gram-negative sepsis, unspecified; R65.20 Severe sepsis without septic shock; G92 Toxic encephalopathy; F10.239 Alcohol dependence with withdrawal, unspecified; A04.72 Enterocolitis due to Clostridium difficile, not specified as recurrent; E87.2 Acidosis; E87.1 Hypo-osmolality and hyponatremia; N17.9 Acute kidney failure, unspecified; N39.0 Urinary tract infection, site not specified; E87.6 Hypokalemia; K43.9 Ventral hernia without obstruction or gangrene; I95.9 Hypotension, unspecified; E86.9 Volume depletion, unspecified; J44.9 Chronic obstructive pulmonary disease, unspecified; I10 Essential (primary) hypertension; Z86.718 Personal history of other venous thrombosis and embolism; Z85.46 Personal history of malignant neoplasm of prostate; Z85.038 Personal history of other malignant neoplasm of large intestine; Z87.440 Personal history of urinary (tract) infections; R29.6 Repeated falls; Z91.81 History of falling; Z86.73 Personal history of transient ischemic attack (TIA), and cerebral infarction without residual deficits; Z87.820 Personal history of traumatic brain injury; Z87.891 Personal history of nicotine dependence; Z79.01 Long term (current) use of anticoagulants
CPT/HCPCS: 0097U; 36415; 51702; 70450; 71045; 74177; 80048; 80053; 80069; 81001; 82140; 82803; 83605; 83690; 83735; 83880; 84443; 84484; 85025; 85610; 87040; 87077; 87086; 87186; 87324; 93005; 93010; 94640; 94760; 96361-59; 96365-59; 96366-59; 96368; 96375-59; 97110; 97112; 97162; 97166; 97530; 97535; 99285-25; A9270; A9270-GY; J0696; J2060; J2405; J3411; J3475; J3480; J7030; J7042; J7050; J7060; Q9967

== ENCOUNTER 2019-08-11 16:25 | Inpatient (IN) | payer OTHER, MEDICARE ==
[~2019-08-11] VITALS: Ht 170.2 cm; Wt 62.5 kg
[~2019-08-11 16:25] MED LIST changes: +B-1100 M2 PO
[2019-08-11 18:58] LABS: Alanine Aminotransfer (ALT/SGP 14 U/L (12-78); Albumin, Blood 2.9 g/dL (3.4-5.0); Albumin/Globulin Ratio 0.7 (0.8-1.8); Alk Phos 77 U/L (50-136); Anion Gap 9 mmol/L (6-16); Aspartate Aminotrans (AST/SGOT 16 U/L (12-37); Bilirubin, Total 0.8 mg/dL (0.1-1.0); Blood Urea Nitrogen 5 mg/dL (8-24); Bun/Creatinine Ratio 4.8 (12.0-20.0); CO2, Blood 25 mmol/L (21-32); Calcium, Blood 8.4 mg/dL (8.5-10.1); Chloride, Blood 101 mmol/L (98-108); Creatinine, Blood 1.05 mg/dL (0.60-1.20); Globulin, Blood 4.4 g/dL (2.2-4.0); Glomerular Filtration Rate >60 (60-); Glucose, Blood 154 mg/dL (70-99); Potassium, Blood 3.7 mmol/L (3.5-5.5); Sodium, Blood 135 mmol/L (136-145); Total Protein, Blood 7.3 g/dL (6.4-8.2)
[2019-08-11 20:19] LABS: BASOPHILS ABSOLUTE AUTO 0.04 K/mm3 (0.00-0.23); BASOPHILS PERCENT AUTO 0 % (0-2); EOSINOPHILS ABSOLUTE AUTO 0.01 K/mm3 (0.00-0.68); EOSINOPHILS PERCENT AUTO 0 % (0-6); Hematocrit 42.3 % (37.0-53.0); Hemoglobin 13.4 g/dL (13.5-17.5); IMMATURE GRAN ABSOLUTE AUTO 0.14 K/mm3 (0.00-0.10); IMMATURE GRAN PERCENT AUTO 1 % (0-1); LYMPHOCYTES ABSOLUTE AUTO 0.43 K/mm3 (0.84-5.20); LYMPHOCYTES PERCENT AUTO 2 % (21-46); MONOCYTES ABSOLUTE AUTO 0.77 K/mm3 (0.16-1.47); MONOCYTES PERCENT AUTO 4 % (4-13); Mean Corpuscular HGB 32.2 pg (26.0-34.0); Mean Corpuscular HGB Conc 31.7 g/dL (31.5-36.5); Mean Corpuscular Volume 102 fL (80-100); Mean Platelet Volume 9.3 fL (9.1-12.4); NEUTROPHILS ABSOLUTE AUTO 17.81 K/mm3 (1.96-9.15); NEUTROPHILS PERCENT AUTO 93 % (41-73); Platelet Count 206 K/mm3 (150-400); RDW Standard Deviation 45.1 fL (35.1-46.3); Red Blood Cell Count 4.16 M/mm3 (4.30-5.90)
[2019-08-11 21:12] LABS: Ethanol (Alcohol), Blood, Med <3 mg/dL
[2019-08-11 21:54] LABS: Source, Urine Clean Catch
[2019-08-11 21:57] LABS: Bilirubin, Urine Neg (Neg); Blood, Urine 1+ (Neg); Glucose Qualitative, Urine Neg (Neg); Ketones, Urine Neg (Neg); Leukocyte Esterase, Urine Neg (Neg); Nitrite, Urine Neg (Neg); Protein, Urine Neg (Neg); Specific Gravity, Urine 1.015 (1.003-1.022); Urobilinogen, Urine NORM (Normal)
[2019-08-11 22:05] LABS: Appearance, Urine Clear (Clear); Color, Urine Yellow (P-Yellow)
[2019-08-11 22:06] LABS: Bacteria Not Seen /hpf; Red Blood Cells, Urine 0-2 /hpf (0-2); Squamous Epithelial Cells Not Seen /hpf (Few); White Blood Cells, Urine Rare /hpf (0-5)
[2019-08-11 22:18] LABS: U Amphetamine Screen Not Detected; U Barbituate Screen Not Detected; U Benzodiazapine Screen DETECTED; U Buprenorphine Screen Not Detected; U Cannabinoids Screen Not Detected; U Cocaine Screen Not Detected; U Methadone Screen Not Detected; U Methamphetamine Screen Not Detected; U Opiates Screen Not Detected; U Oxycodone Screen Not Detected; U Phencyclidine Screen Not Detected; U Propoxyphene Screen Not Detected
[2019-08-11 23:17] LABS: Campylobacter Sp Not Detected (NOT DETECT)
[2019-08-11 23:18] LABS: Adenovirus F 40/41 Not Detected (NOT DETECT); Astrovirus Not Detected (NOT DETECT); Cryptosporidium Not Detected (NOT DETECT); Cyclospora Cayetanensis Not Detected (NOT DETECT); E. Coli O157 Not Detected (NOT DETECT); Entamoeba Histolytica Not Detected (NOT DETECT); Enteroaggregative E. coli-EAEC Not Detected (NOT DETECT); Enteropathogenic E. coli-EPEC Not Detected (NOT DETECT); Enterotoxigenic E. coli-ETEC Not Detected (NOT DETECT); Giardia Lamblia Not Detected (NOT DETECT); Norovirus GI/GII Not Detected (NOT DETECT); Plesiomonas Shigelloides Not Detected (NOT DETECT); Rotavirus A Not Detected (NOT DETECT); Salmonella Sp Not Detected (NOT DETECT); Sapovirus Not Detected (NOT DETECT); Shiga Toxin-prod E. coli-STEC Not Detected (NOT DETECT); Shigella/Enteroin E. coli-EIEC Not Detected (NOT DETECT); Vibrio Cholerae Not Detected (NOT DETECT); Vibrio Sp Not Detected (NOT DETECT); Yersinia Enterocolitica Not Detected (NOT DETECT)
[2019-08-12 01:13] LABS: Appearance, CSF Clear (Clear); Color, CSF No Color (No Color)
[2019-08-12 01:15] LABS: RBC Count, CSF 95 /mm3 (0-0); WBC Count, CSF 0 /mm3 (0-5)
[2019-08-12 01:17] LABS: Appearance, CSF Clear (Clear); Color, CSF No Color (No Color); RBC Count, CSF 3 /mm3 (0-0); WBC Count, CSF 0 /mm3 (0-5)
[2019-08-12 01:40] LABS: Glucose, CSF 87 mg/dL (40-70)
[2019-08-12 02:39] LABS: Cryptococcus Neoformans/Gattii Not Detected (NOT DETECT); Enterovirus Not Detected (NOT DETECT); Escherichia Coli K1 Not Detected (NOT DETECT); Haemophilus Influenza Not Detected (NOT DETECT); Herpes Simplex Virus 1 Not Detected (NOT DETECT); Herpes Simplex Virus 2 Not Detected (NOT DETECT); Human Herpesvirus 6 Not Detected (NOT DETECT); Human Parechovirus Not Detected (NOT DETECT); Listeria Monocytogenes Not Detected (NOT DETECT); Neisseria Meningitidis Not Detected (NOT DETECT); Streptococcus Agalactiae Not Detected (NOT DETECT); Streptococcus Pneumoniae Not Detected (NOT DETECT); Varicella Zoster Virus Not Detected (NOT DETECT)
[2019-08-12 03:14] LABS: International Normalized Ratio 1.13
[2019-08-12 04:24] LABS: BASOPHILS ABSOLUTE AUTO 0.08 K/mm3 (0.00-0.23); BASOPHILS PERCENT AUTO 0 % (0-2); EOSINOPHILS PERCENT AUTO 0 % (0-6); Hematocrit 40.3 % (37.0-53.0); Hemoglobin 12.8 g/dL (13.5-17.5); IMMATURE GRAN ABSOLUTE AUTO 0.22 K/mm3 (0.00-0.10); IMMATURE GRAN PERCENT AUTO 1 % (0-1); LYMPHOCYTES ABSOLUTE AUTO 0.71 K/mm3 (0.84-5.20); LYMPHOCYTES PERCENT AUTO 3 % (21-46); MONOCYTES ABSOLUTE AUTO 1.46 K/mm3 (0.16-1.47); MONOCYTES PERCENT AUTO 6 % (4-13); Mean Corpuscular HGB 32.5 pg (26.0-34.0); Mean Corpuscular HGB Conc 31.8 g/dL (31.5-36.5); Mean Corpuscular Volume 102 fL (80-100); Mean Platelet Volume 8.7 fL (9.1-12.4); NEUTROPHILS ABSOLUTE AUTO 23.69 K/mm3 (1.96-9.15); NEUTROPHILS PERCENT AUTO 91 % (41-73); Platelet Count 192 K/mm3 (150-400); RDW Coefficient Variation 12.1 % (11.7-14.2); Red Blood Cell Count 3.94 M/mm3 (4.30-5.90); White Blood Cell Count 26.16 K/mm3 (4.00-11.30)
[2019-08-12 04:38] LABS: Alanine Aminotransfer (ALT/SGP 12 U/L (12-78); Albumin/Globulin Ratio 0.5 (0.8-1.8); Alk Phos 58 U/L (50-136); Anion Gap 7 mmol/L (6-16); Aspartate Aminotrans (AST/SGOT 15 U/L (12-37); Bilirubin, Total 0.5 mg/dL (0.1-1.0); Blood Urea Nitrogen 6 mg/dL (8-24); Bun/Creatinine Ratio 6.4 (12.0-20.0); CO2, Blood 22 mmol/L (21-32); Calcium, Blood 7.8 mg/dL (8.5-10.1); Chloride, Blood 107 mmol/L (98-108); Creatinine, Blood 0.94 mg/dL (0.60-1.20); Glomerular Filtration Rate >60 (60-); Glucose, Blood 105 mg/dL (70-99); Potassium, Blood 3.1 mmol/L (3.5-5.5); Sodium, Blood 136 mmol/L (136-145)
--- NOTE | 2019-08-12 05:43 | NUR ---
CARE ASSUMPTION / SHIFT SUMMARY PT BROUGHT TO PCU-11 BY JSOE CRUZ FROM ER @ APPROX 0300. PT A&O TO SELF & PLACE. PT PLEASANT, CONFUSED TO WHY HE'S HERE AND DENIES KNOWING DATE/TIME, STATING "I DON'T REALLY CARE." PT ANSWERING SOME Q's APPROPRIATELY. PT ALSO HOWEVER, INTERMITTENTLY REQUIRING REDIRECTING/ORIENTING D/T CONFUSION. PT EASILY DIRECTABLE & COOPERATIVE W/ CARE. PT VSS. MONITOR SHOWS SR, HR 80's-90's. SPO2 > 92% ON RA. PT GROIN AREA & BUTTOCKS BRIGHT RED. FRAUSTO CATH PATENT & DRAINING YELLOW URINE. PT INCONTINENT OF LIQUIDY BROWN/YELLOW STOOL CONTINUING TO DRAIN OUT OF PT. CALL TO MD NATHAN W/ ORDER FOR RECTAL TUBE, INSERTED THIS AM. RECTAL TUBE DRAINING BROWN/YELLOW LIQUIDY STOOL. WILL CONTINUE TO MONITOR & PROVIDE CARE UNTIL REPORT OFF TO DAY SHIFT RN.
[2019-08-12 06:28] LABS: Adenovirus Not Detected (NOT DETECT); Bordetella pertussis Not Detected (NOT DETECT); Chlamydophila pneumoniae Not Detected (NOT DETECT); Coronavirus 229E Not Detected (NOT DETECT); Coronavirus HKU1 Not Detected (NOT DETECT); Coronavirus NL63 Not Detected (NOT DETECT); Coronavirus OC43 Not Detected (NOT DETECT); Human Metapneumovirus Not Detected (NOT DETECT); Human Rhinovirus/Enterovirus Not Detected (NOT DETECT); Influenza A/2009-H1 Not Detected (NOT DETECT); Influenza A/H1 Not Detected (NOT DETECT); Influenza A/H3 Not Detected (NOT DETECT); Influenza B Not Detected (NOT DETECT); Mycoplasma pneumoniae Not Detected (NOT DETECT); Parainfluenza Virus 1 Not Detected (NOT DETECT); Parainfluenza Virus 2 Not Detected (NOT DETECT); Parainfluenza Virus 3 Not Detected (NOT DETECT); Parainfluenza Virus 4 Not Detected (NOT DETECT); Respiratory Syncytial Virus Not Detected (NOT DETECT)
--- NOTE | 2019-08-12 08:00 | NUR ---
PT LAYING IN BED, DIFF TO WAKE, HE ISN'T FOLLOWING COMMANDS, AND GETTING IRRITATED FOR WAKING HIM AND STATES HE'S COLD AND FIGHTING THE BLOOD PRESSURE CUFF, IS CONFUSED, LUNGS ARE CLEAR T/O, DIM IN BASES, IS CURRENTLY ON R/A, RESP EVEN AND UNLABORED, NO COUGH NOTED, HRR, TELE IN PLACE RUNNING SR PER MONITOR, SEE STRIP, NO EDEMA NOTED, PPP+2, CAP REFILL <3SEC, B/P LOW THIS AM, BUT HE IS MOVING AROUND, WILL RECHECK AGAIN AFTER HE SETTLES DOWN, IV TO LAC AND HONG, RED AREA TO FA DISTAL TO IV SITE, NOT OPEN, BTX4, ABD FLAT SOFT NONTENDER, FRAUSTO CATH DRAINING CLEAR MICHAEL URINE, SKIN IS VERY EXCORIATED AROUND [place] AREA, STIFF IN HIS MOVEMENTS, DOESN'T LIKE TO BE TURNED, AND CANT UNDERSTAND WHAT HE IS EXPECTED TO DO, CALL LIGHT IN REACH.
--- NOTE | 2019-08-12 18:24 | NUR ---
PT HAS SLEPT MOST OF THE DAY, WAKES EASILY, DOESN'T LIKE TO BE WOKE, B/P HAS BEEN RUNNING IN THE 90'S, MAP OVER 60, NO ACUTE CHANGES THIS SHIFT, CALL LIGHT IN REACH.
--- NOTE | 2019-08-13 05:10 | NUR ---
SHIFT SUMMARY PT CONTINUES TO BE ALERT, ORIENTED TO SELF, INTERMITTENTLY ORIENTED TO PLACE PT FORGETS WHERE HE IS & THINKS HE'S AT HOME. PT DISORIENTED TO DATE/TIME. VSS. MONITOR SHOWS SR, HR 70's-90's. SPO2 > 92% ON RA. FRAUSTO CATH PATENT & DRAINING YELLOW URINE. RECTAL TUBE IN PLACE, DRAINING GREEN/BROWN LIQUIDY STOOL W/ CHUNKS. GROIN AREA & BUTTOCKS APPEAR LESS RED. CALAZIME BARRIER CREAM APPLIED T/O SHIFT DURING ROUTINE/PRN KAROLINA CARE. PT ABLE TO ASSIST W/ REPOSITIONING. BED ALARM ON. WILL CONTINUE TO MONITOR & PROVIDE CARE UNTIL REPORT OFF TO DAY SHIFT RN.
--- NOTE | 2019-08-13 08:05 | NUR ---
PT LAYING IN BED AWAKE A/OX2, PLEASANT AND COOPERATIVE WITH CARE, FOLLOWS COMMANDS WELL, LUNGS ARE CLEAR DIM IN BASES, RESP EVEN AND UNLABORED, NO COUGH NOTED, IS ON RA, HRR, TELE IN PLACE RUNNING SR PER MONITOR, SEE STRIP, NO EDEMA NOTED, PPP+1, CAP REFILL <3 SEC, VS STABLE, AFEBRILE, IV SITES TO LEFT AC AND LFA ARE CLEAR AND PATENT, BTX4, ABD ROUND SOFT NONTENDER, VOIDS VIA FRAUSTO AT THIS TIME, RECTAL TUBE IN PLACE, [place] AREA IS EXCORIATED, BUT IMPROVED FROM YESTERDAY, SKIN OTHERWISE VERY FRAIL, MAEW, WEAK, YASEMIN, CALL LIGHT IN REACH.
[2019-08-13 11:05] LABS: BASOPHILS ABSOLUTE AUTO 0.04 K/mm3 (0.00-0.23); BASOPHILS PERCENT AUTO 0 % (0-2); EOSINOPHILS ABSOLUTE AUTO 0.12 K/mm3 (0.00-0.68); EOSINOPHILS PERCENT AUTO 1 % (0-6); Hematocrit 36.5 % (37.0-53.0); IMMATURE GRAN ABSOLUTE AUTO 0.05 K/mm3 (0.00-0.10); IMMATURE GRAN PERCENT AUTO 0 % (0-1); LYMPHOCYTES ABSOLUTE AUTO 0.58 K/mm3 (0.84-5.20); LYMPHOCYTES PERCENT AUTO 5 % (21-46); MONOCYTES ABSOLUTE AUTO 0.67 K/mm3 (0.16-1.47); MONOCYTES PERCENT AUTO 5 % (4-13); Mean Corpuscular HGB 32.6 pg (26.0-34.0); Mean Corpuscular HGB Conc 32.9 g/dL (31.5-36.5); Mean Corpuscular Volume 99 fL (80-100); Mean Platelet Volume 9.1 fL (9.1-12.4); NEUTROPHILS ABSOLUTE AUTO 11.37 K/mm3 (1.96-9.15); NEUTROPHILS PERCENT AUTO 89 % (41-73); Platelet Count 186 K/mm3 (150-400); RDW Coefficient Variation 12.2 % (11.7-14.2); RDW Standard Deviation 44.5 fL (35.1-46.3); Red Blood Cell Count 3.68 M/mm3 (4.30-5.90); White Blood Cell Count 12.83 K/mm3 (4.00-11.30)
[2019-08-13 11:22] LABS: Anion Gap 5 mmol/L (6-16); Blood Urea Nitrogen 11 mg/dL (8-24); Bun/Creatinine Ratio 11.8 (12.0-20.0); CO2, Blood 27 mmol/L (21-32); Calcium, Blood 7.8 mg/dL (8.5-10.1); Chloride, Blood 108 mmol/L (98-108); Creatinine, Blood 0.93 mg/dL (0.60-1.20); Glomerular Filtration Rate >60 (60-); Glucose, Blood 119 mg/dL (70-99); Sodium, Blood 140 mmol/L (136-145)
--- NOTE | 2019-08-13 18:48 | NUR ---
pt has been very confused today, he is pulling on everything and removing lines and tele cords, fixating on looking for his wallet, pulled out a number of iv's, called Dr. Thorne and recieved an order for soft wrist restraints, no acute changes today, stool continues to be liquid, rectal tube was repositioned, call light in reach.
--- NOTE | 2019-08-13 22:33 | NUR ---
AT APPROX 2140 PT FOUND OUT OF BED WALKING TO BATHROOM. RECTAL TUBE HAD BEEN PULLED OUT AND FRAUSTO CATHETER HAD BEEN UNATTACHED FROM CATHETER BAG. PT PROCEEDED TO SIT ON TOILET STATING HE HAD TO USE THE BATHROOM "VERY BAD". PT BECAME AGITATED WHEN OFFERED ASSISTANCE STATING "GET OUT OF HERE AND SHUT THE DOOR". PT GIVEN ATTENDS TO PUT ON AND NEW GOWN. ONCE PT CALMED DOWN, PT WAS ASSISTED BACK TO BED. FRAUSTO CATHETER WAS THEN REMOVED IT HAD TOUCHED THE TOLET WATER. IV STILL INTACT AND PATENT.
--- NOTE | 2019-08-14 03:18 | NUR ---
ATTEMPTED TO CHECK PT'S BRIEF AT THIS TIME. PT REFUSING AND STATES "GO BACK TO BED, IM FINE". PT APPEARS AGITATED.
[2019-08-14 04:22] LABS: BASOPHILS ABSOLUTE AUTO 0.04 K/mm3 (0.00-0.23); BASOPHILS PERCENT AUTO 0 % (0-2); EOSINOPHILS ABSOLUTE AUTO 0.35 K/mm3 (0.00-0.68); EOSINOPHILS PERCENT AUTO 4 % (0-6); Hematocrit 30.6 % (37.0-53.0); Hemoglobin 10.2 g/dL (13.5-17.5); IMMATURE GRAN ABSOLUTE AUTO 0.04 K/mm3 (0.00-0.10); IMMATURE GRAN PERCENT AUTO 0 % (0-1); LYMPHOCYTES ABSOLUTE AUTO 0.92 K/mm3 (0.84-5.20); LYMPHOCYTES PERCENT AUTO 10 % (21-46); MONOCYTES PERCENT AUTO 10 % (4-13); Mean Corpuscular HGB 32.8 pg (26.0-34.0); Mean Corpuscular HGB Conc 33.3 g/dL (31.5-36.5); Mean Corpuscular Volume 98 fL (80-100); Mean Platelet Volume 9.4 fL (9.1-12.4); NEUTROPHILS ABSOLUTE AUTO 7.35 K/mm3 (1.96-9.15); NEUTROPHILS PERCENT AUTO 76 % (41-73); Platelet Count 193 K/mm3 (150-400); RDW Coefficient Variation 12.2 % (11.7-14.2); RDW Standard Deviation 44.2 fL (35.1-46.3); Red Blood Cell Count 3.11 M/mm3 (4.30-5.90)
[2019-08-14 04:47] LABS: Anion Gap 3 mmol/L (6-16); Blood Urea Nitrogen 14 mg/dL (8-24); Bun/Creatinine Ratio 17.4 (12.0-20.0); CO2, Blood 26 mmol/L (21-32); Calcium, Blood 7.6 mg/dL (8.5-10.1); Chloride, Blood 111 mmol/L (98-108); Creatinine, Blood 0.81 mg/dL (0.60-1.20); Glomerular Filtration Rate >60 (60-); Glucose, Blood 96 mg/dL (70-99); Potassium, Blood 3.5 mmol/L (3.5-5.5); Sodium, Blood 140 mmol/L (136-145)
--- NOTE | 2019-08-14 06:10 | NUR ---
SHIFT SUMMARY: PT CONFUSED THROUGHOUT SHIFT. ALERT TO SELF ONLY. WHEN ATTEMPTING TO REORIENT, PT BECOMES AGITATED AND YELLS AT STAFF. PT PULLED OUT RECTAL TUBE. FRAUSTO TAKEN OUT D/T CONTAMINATION. IV PATENT AND INFUSING PER ORDERS. PT MEDICATED WITH HALDOL THIS MORNING FOR INCREASED AGITATION. PT REFUSING ALL CARE AT THIS TIME. PT STATES "I NEED TO GET OUT OF HERE, I HAVE CHORES TO DO ON THE RANCH" AND IS VERY FRUSTURATED. PT THINKING HE IS AT HOME AND IRRITABLE WHEN STAFF ENTERS THE ROOM. ATTENDS ON, HOWEVER PT REFUSING ATTENDS CHANGE. TAB ALARM ON FOR SAFETY. PT HOLLERING OUT FREQUENTLY. VSS.
[2019-08-15 04:22] LABS: BASOPHILS ABSOLUTE AUTO 0.06 K/mm3 (0.00-0.23); BASOPHILS PERCENT AUTO 1 % (0-2); EOSINOPHILS ABSOLUTE AUTO 0.41 K/mm3 (0.00-0.68); EOSINOPHILS PERCENT AUTO 5 % (0-6); Hemoglobin 10.6 g/dL (13.5-17.5); IMMATURE GRAN ABSOLUTE AUTO 0.03 K/mm3 (0.00-0.10); IMMATURE GRAN PERCENT AUTO 0 % (0-1); LYMPHOCYTES ABSOLUTE AUTO 1.08 K/mm3 (0.84-5.20); LYMPHOCYTES PERCENT AUTO 12 % (21-46); MONOCYTES ABSOLUTE AUTO 0.77 K/mm3 (0.16-1.47); MONOCYTES PERCENT AUTO 9 % (4-13); Mean Corpuscular HGB 32.2 pg (26.0-34.0); Mean Corpuscular HGB Conc 31.2 g/dL (31.5-36.5); NEUTROPHILS ABSOLUTE AUTO 6.48 K/mm3 (1.96-9.15); NEUTROPHILS PERCENT AUTO 74 % (41-73); Platelet Count 206 K/mm3 (150-400); RDW Coefficient Variation 12.4 % (11.7-14.2); RDW Standard Deviation 46.9 fL (35.1-46.3); Red Blood Cell Count 3.29 M/mm3 (4.30-5.90); White Blood Cell Count 8.83 K/mm3 (4.00-11.30)
[2019-08-15 04:34] LABS: Mean Corpuscular Volume 103 fL (80-100)
[2019-08-15 04:41] LABS: Anion Gap 4 mmol/L (6-16); Blood Urea Nitrogen 11 mg/dL (8-24); Bun/Creatinine Ratio 14.2 (12.0-20.0); CO2, Blood 24 mmol/L (21-32); Calcium, Blood 7.5 mg/dL (8.5-10.1); Chloride, Blood 115 mmol/L (98-108); Creatinine, Blood 0.78 mg/dL (0.60-1.20); Glomerular Filtration Rate >60 (60-); Glucose, Blood 84 mg/dL (70-99); Potassium, Blood 3.7 mmol/L (3.5-5.5); Sodium, Blood 143 mmol/L (136-145)
--- NOTE | 2019-08-15 06:07 | NUR ---
SHIFT SUMMARY PT A&O X2-3; PT HAS BEEN PLEASANT & COMPLIANT WITH CARE FOR DURATION OF SHIFT; ALLOWED BRIEF CHANGES W/ NO ISSUES; LARGE BM W/ SATURATED ATTENDS 2X THIS SHIFT; BARRIER CREAM APPLIED TO SWOLLEN SCROTUM, PENIS & RED BUTTOCKS; PT EDUCATED ON SKIN CARE / NEED FOR FREQUENT BRIEF CHANGES TO PREVENT SKIN BREAKDOWN; VSS; DENIES CHEST PAIN; O2 SATS >93 ON RA; WARM BLANKETS BROUGHT OT PT; PT APPRECIATES ICE COLD WATER TO DRINK; PO FLUIDS & SNACKS ENCOURAGED; PT EDUCATED MANAGER SUPPLY CHAIN LIGHT USE, TV & LIGHT CONTROL, & REORIENTED TO ROOM; CALL LIGHT IN REACH; BED IN LOWEST POSITION; BED ALARM ON; WILL CONTINUE TO MONITOR CLOSELY UNTIL HAND OFF TO DAY SHIFT RN.
--- NOTE | 2019-08-15 11:11 | NUR ---
TRANSFER NOTE PT A&O TO SELF AND SURROUNDING; UNSURE OF DATE/TIME, PLACE AND EVENT. PT STATES "I FEEL GREAT" DURING ASSESSMENT AND DENEIS PAIN, CHEST PAIN/PRESSURE, NASUEA, SOB AND DIZZINESS. PT RECEIVING IV ANTIBIOTICS AND STARTING ON PO ANTIBITOICS. 1 PERSON ASSIST TO BATHROOM WITH WALKER. PT CONTINUES TO HAVE MULTIPLE LIQUID BMS THIS AM. ATTENDS IN PLACE. CIWA 6 THIS AM, MORE PLSEANT TODAY THEN PREVIOUSLY. DR DURAN AT BEDSIDE THIS AM. SWELLING NOTED TO RIGHT ELBOW AND GENITALIA; DR AVILA NOTIFIED AT BEDSIDE THIS AM TO ASSESS. VSS. NO OTHER ACUTE CHANGES NOTED DURING SHIFT. TELEPHONE REPORT GIVEN TO JAC TRINH ASSUMING CARE OF PT. PT BEING TRANSFERED TO ROOM 350.
--- NOTE | 2019-08-15 18:33 | NUR ---
SHIFT SUMMARY. 1146 PT TRANSFERED TO MEDICAL FLOOR FROM PCU VIA BED. GIANFRANCO VEST RESTRAINT D/C'D. PT SLEPT MOST OF THE AFTERNOON. PT WITH ONE LIQUID STOOL SINCE TRANSFER. PT DENIES N/V, SOB, AND PAIN. PT PLEASANT AND COOPERATIVE WITH CARE. NO NEW CHANGES OR CONCERNS.
--- NOTE | 2019-08-16 04:20 | NUR ---
SHIFT SUMMARY ALERT, ABLE TO MAKE NEEDS KNOWN. NOTED CONFUSION AT TIMES. COOPERATIVE WITH CARE. NO C/O PAIN/DISCOMFORT. CONTINUES TO HAVE LOOSE STOOLS X2-3; BARRIER CREAM APPLIED TO GROIN/SCROTUM/COCCYX. TELE RUNNING SR IN 80's WITHOUT ANY ACUTE EVENTS. IV MEDICATIONS INFUSED WITHOUT COMPLICATIONS. NO ACUTE CHANGES NOTED OVERNIGHT. APPEARED TO REST OFF AND ON T/O SHIFT. BED REAMINED IN LOWEST POSITION; ALARM ON. CALL LIGHT AND BELONGINGS WITHIN REACH. WCTM. REPORT TO ONCOMING RN.
[2019-08-16 05:34] LABS: Anion Gap 3 mmol/L (6-16); Blood Urea Nitrogen 14 mg/dL (8-24); Bun/Creatinine Ratio 17.4 (12.0-20.0); CO2, Blood 30 mmol/L (21-32); Calcium, Blood 7.8 mg/dL (8.5-10.1); Chloride, Blood 109 mmol/L (98-108); Creatinine, Blood 0.81 mg/dL (0.60-1.20); Glomerular Filtration Rate >60 (60-); Glucose, Blood 93 mg/dL (70-99); Potassium, Blood 3.5 mmol/L (3.5-5.5); Sodium, Blood 142 mmol/L (136-145)
--- NOTE | 2019-08-16 13:19 | NUR ---
PT TRANSFERED TO [facility] FROM FLOOR VIA GURNEY. History, Chart, Medications and Allergies reviewed before start of procedure. Patient confirms NPO status and agrees with scheduled surgery. Pre-Op teaching done. Pt verbalizes understanding.
--- NOTE | 2019-08-16 14:21 | NUR ---
08/16/19 1421 FLORINDA FLANNERY History, Chart, Medications and Allergies reviewed before start of procedure. O2 VIA N/C INTACT THROUGHOUT SEDATION/PROCEDURE. 3-LEAD EKG REVIEWED WITH PHYSICIAN PRIOR TO START OF PROCEDURE. MONITOR INTACT WITH CONTINUOUS PULSE OXIMETRY AND INTERMITTENT BP. PATIENT DETERMINED TO BE ASA APPROPRIATE FOR PROPOFOL SEDATION PRIOR TO START OF PROCEDURE BY DR. DURAN.
--- NOTE | 2019-08-16 18:27 | NUR ---
SHIFT SUMMARY. A&OX2-3, INTERMITTENT FORGETFULNEES, PLEASANT AND COOPERATIVE WITH CARE. PT DENIES PAIN, SOB, N/V. COLONOSCOPY COMPLETED THIS AFTERNOON, PT TOLERATED BOWEL PREP WELL. NO OTHER CHANGES OR CONCERNS.
--- NOTE | 2019-08-17 04:26 | NUR ---
SHIFT SUMMARY: VSS. AFEB. AAOX2-3. OCCASIONAL AGITATION AND YELLING OUT, BUT REDIRECTS QUICKLY AND EASILY. 02 SAT 97% ON RA. RHONCHI AUSC IN LEFT UPPER LOBE. OCC STRONG PRODUCTIVE SOUNDING COUGH. SPUTUM NOT OBSERVED. TELE SHOWING SINUS RHYTHM PER SENIOR NETWORK ARCHITECT. NO DIARRHEA SO FAR TONIGHT. NO ACUTE CHANGES. WILL CONT TO MONITOR.
[2019-08-17] MEDS ORDERED: PREVALITE PAC4 G/PKT PO (12:55)
[2019-08-17] MEDS ORDERED: PROBIOTIC PO (12:56)
[2019-08-17] MEDS ORDERED: VANCOCIN HCL125 MG PO (12:56)
--- NOTE | 2019-08-17 13:43 | NUR ---
DISCHARGE INSTRUCTIONS REVIEWED WITH DAUGHTER SHIMA, IV DC'D INACT. RX FAXED TO [facility] PRIOR TO DISCHARGE. PT GOT AGITATED PRIOR TO DISCHARGE AND DIFFICULT TO REORIENT. PT ADAMENT HE HAD HIS GLASSES EVEN THOUGH WE CALLED SON BRANDI WHO REPORTED HE HAD HIS GLASSES. DAUGHTER SHIMA HERE TO TAKE PT HOME, ESCORTED OUT VIA W/C AT 1340. DAUGHTER REPORTS SHE IS POA AND WILL BE WORKING ON GETTING GUARDIANSHIP OF PT AND PLACEMENT FOR PT.
[2019-08-23 14:09] LABS: NICOTINAMIDE 9.6 ng/mL (5.2-72.1); NICOTINIC ACID <5.0 ng/mL (0.0-5.0)
== END 2019-08-17 13:44 | disposition home health service (06) | DRG 92 ==
LOC: ER 16:25 → PCU 16:26 → ER 08-12 00:53 → PCU 08-12 00:53 → MEDS 08-13 15:22 → PCU 08-13 15:22 → MEDS 08-15 11:46 → ENPENDDIS 08-17 13:30 → MEDS 08-17 13:44
PROVIDERS: Emergency Medicine; Internal Medicine Gastroenterology; Physician Assistant; Student in an Organized Health Care Education/Training Program; ADMIT Internal Medicine
PROC: 009U3ZX Drainage of Spinal Canal, Percutaneous Approach, Diagnostic (ICD-10-PCS; 2019-08-11)
PROC: 0DBP8ZX Excision of Rectum, Via Natural or Artificial Opening Endoscopic, Diagnostic (ICD-10-PCS; 2019-08-16)
PROC: 0DBM8ZZ Excision of Descending Colon, Via Natural or Artificial Opening Endoscopic (ICD-10-PCS; principal; 2019-08-16 13:30)
DX: G92 Toxic encephalopathy (principal); E87.2 Acidosis; E44.0 Moderate protein-calorie malnutrition; Z20.828 Contact with and (suspected) exposure to other viral communicable diseases; F10.20 Alcohol dependence, uncomplicated; Z86.73 Personal history of transient ischemic attack (TIA), and cerebral infarction without residual deficits; Z87.820 Personal history of traumatic brain injury; E87.6 Hypokalemia; R63.0 Anorexia; D72.9 Disorder of white blood cells, unspecified; F03.90 Unspecified dementia, unspecified severity, without behavioral disturbance, psychotic disturbance, mood disturbance, and anxiety; K63.5 Polyp of colon; Y90.0 Blood alcohol level of less than 20 mg/100 ml
CPT/HCPCS: 0097U; 0099U; 36415; 51702; 62270; 70450; 71045; 74176; 80048; 80053; 81001; 82140; 82607; 82746; 82945; 83605; 84157; 84591; 85025; 85610; 87040; 87070; 87205; 87324; 87483; 88305; 89051; 93005; 93010; 96361; 96361-59; 96365-59; 96366; 96372; 96375; 99285-25; A9270; G0378; G0480; J0696; J1630; J1650; J2704; J3370; J3480; J7030; J7050; J7120; U0002

== ENCOUNTER 2019-12-20 18:14 | Inpatient (IN) | payer OTHER ==
[~2019-12-20] VITALS: Ht 175.3 cm; Wt 70.3 kg
[~2019-12-20 18:14] MED LIST changes: +PREVALITE PAC4 G/PKT PO; +PROBIOTIC PO; +VANCOCIN HCL125 MG PO
[2019-12-20 21:30] LABS: BASOPHILS ABSOLUTE AUTO 0.04 K/mm3 (0.00-0.23); BASOPHILS PERCENT AUTO 0 % (0-2); EOSINOPHILS ABSOLUTE AUTO 0.15 K/mm3 (0.00-0.68); EOSINOPHILS PERCENT AUTO 1 % (0-6); Hematocrit 36.2 % (37.0-53.0); Hemoglobin 11.6 g/dL (13.5-17.5); IMMATURE GRAN ABSOLUTE AUTO 0.06 K/mm3 (0.00-0.10); IMMATURE GRAN PERCENT AUTO 1 % (0-1); LYMPHOCYTES ABSOLUTE AUTO 0.86 K/mm3 (0.84-5.20); LYMPHOCYTES PERCENT AUTO 8 % (21-46); MONOCYTES ABSOLUTE AUTO 0.79 K/mm3 (0.16-1.47); MONOCYTES PERCENT AUTO 7 % (4-13); Mean Corpuscular HGB 30.2 pg (26.0-34.0); Mean Corpuscular Volume 94 fL (80-100); Mean Platelet Volume 8.6 fL (9.1-12.4); NEUTROPHILS ABSOLUTE AUTO 8.79 K/mm3 (1.96-9.15); NEUTROPHILS PERCENT AUTO 82 % (41-73); Platelet Count 209 K/mm3 (150-400); RDW Coefficient Variation 12.2 % (11.7-14.2); RDW Standard Deviation 42.6 fL (35.1-46.3); Red Blood Cell Count 3.84 M/mm3 (4.30-5.90); White Blood Cell Count 10.69 K/mm3 (4.00-11.30)
[2019-12-20] MEDS ORDERED: Florastor250 MG PO (21:33)
[2019-12-20 21:43] LABS: International Normalized Ratio 1.01; Prothrombin Time Results 10.8 Sec (9.7-11.5)
[2019-12-20 21:46] LABS: Alanine Aminotransfer (ALT/SGP 11 U/L (12-78); Albumin, Blood 3.1 g/dL (3.4-5.0); Albumin/Globulin Ratio 0.9 (0.8-1.8); Alk Phos 67 U/L (50-136); Anion Gap 5 mmol/L (6-16); Aspartate Aminotrans (AST/SGOT 12 U/L (12-37); Bilirubin, Total 0.6 mg/dL (0.1-1.0); Blood Urea Nitrogen 14 mg/dL (8-24); Bun/Creatinine Ratio 14.3 (12.0-20.0); CO2, Blood 30 mmol/L (21-32); Calcium, Blood 8.6 mg/dL (8.5-10.1); Chloride, Blood 104 mmol/L (98-108); Creatinine, Blood 0.98 mg/dL (0.60-1.20); Globulin, Blood 3.4 g/dL (2.2-4.0); Glomerular Filtration Rate >60 (60-); Glucose, Blood 106 mg/dL (70-99); Potassium, Blood 3.6 mmol/L (3.5-5.5); Sodium, Blood 139 mmol/L (136-145); Total Protein, Blood 6.5 g/dL (6.4-8.2)
[2019-12-21 04:04] LABS: BASOPHILS ABSOLUTE AUTO 0.03 K/mm3 (0.00-0.23); BASOPHILS PERCENT AUTO 0 % (0-2); EOSINOPHILS ABSOLUTE AUTO 0.04 K/mm3 (0.00-0.68); EOSINOPHILS PERCENT AUTO 1 % (0-6); Hematocrit 32.6 % (37.0-53.0); Hemoglobin 10.5 g/dL (13.5-17.5); IMMATURE GRAN ABSOLUTE AUTO 0.02 K/mm3 (0.00-0.10); IMMATURE GRAN PERCENT AUTO 0 % (0-1); LYMPHOCYTES ABSOLUTE AUTO 0.91 K/mm3 (0.84-5.20); LYMPHOCYTES PERCENT AUTO 11 % (21-46); MONOCYTES ABSOLUTE AUTO 0.79 K/mm3 (0.16-1.47); MONOCYTES PERCENT AUTO 9 % (4-13); Mean Corpuscular HGB 30.3 pg (26.0-34.0); Mean Corpuscular HGB Conc 32.2 g/dL (31.5-36.5); Mean Corpuscular Volume 94 fL (80-100); Mean Platelet Volume 8.2 fL (9.1-12.4); NEUTROPHILS ABSOLUTE AUTO 6.66 K/mm3 (1.96-9.15); NEUTROPHILS PERCENT AUTO 79 % (41-73); Platelet Count 162 K/mm3 (150-400); RDW Coefficient Variation 12.3 % (11.7-14.2); RDW Standard Deviation 42.5 fL (35.1-46.3); Red Blood Cell Count 3.47 M/mm3 (4.30-5.90); White Blood Cell Count 8.45 K/mm3 (4.00-11.30)
[2019-12-21 04:25] LABS: Alanine Aminotransfer (ALT/SGP 9 U/L (12-78); Albumin, Blood 2.8 g/dL (3.4-5.0); Albumin/Globulin Ratio 0.9 (0.8-1.8); Alk Phos 59 U/L (50-136); Anion Gap 3 mmol/L (6-16); Aspartate Aminotrans (AST/SGOT 8 U/L (12-37); Bilirubin, Total 0.9 mg/dL (0.1-1.0); Blood Urea Nitrogen 13 mg/dL (8-24); Bun/Creatinine Ratio 13.8 (12.0-20.0); CO2, Blood 30 mmol/L (21-32); Calcium, Blood 8.6 mg/dL (8.5-10.1); Chloride, Blood 107 mmol/L (98-108); Creatinine, Blood 0.94 mg/dL (0.60-1.20); Glomerular Filtration Rate >60 (60-); Glucose, Blood 113 mg/dL (70-99); Potassium, Blood 3.9 mmol/L (3.5-5.5); Sodium, Blood 140 mmol/L (136-145); Total Protein, Blood 5.8 g/dL (6.4-8.2)
[2019-12-22 04:43] LABS: BASOPHILS ABSOLUTE AUTO 0.01 K/mm3 (0.00-0.23); BASOPHILS PERCENT AUTO 0 % (0-2); EOSINOPHILS PERCENT AUTO 0 % (0-6); Hematocrit 29.3 % (37.0-53.0); Hemoglobin 9.4 g/dL (13.5-17.5); IMMATURE GRAN ABSOLUTE AUTO 0.04 K/mm3 (0.00-0.10); IMMATURE GRAN PERCENT AUTO 0 % (0-1); LYMPHOCYTES ABSOLUTE AUTO 0.59 K/mm3 (0.84-5.20); LYMPHOCYTES PERCENT AUTO 6 % (21-46); MONOCYTES ABSOLUTE AUTO 0.82 K/mm3 (0.16-1.47); MONOCYTES PERCENT AUTO 9 % (4-13); Mean Corpuscular HGB 30.4 pg (26.0-34.0); Mean Corpuscular HGB Conc 32.1 g/dL (31.5-36.5); Mean Corpuscular Volume 95 fL (80-100); Mean Platelet Volume 8.8 fL (9.1-12.4); NEUTROPHILS ABSOLUTE AUTO 8.03 K/mm3 (1.96-9.15); NEUTROPHILS PERCENT AUTO 85 % (41-73); Platelet Count 162 K/mm3 (150-400); RDW Coefficient Variation 12.2 % (11.7-14.2); RDW Standard Deviation 42.5 fL (35.1-46.3); Red Blood Cell Count 3.09 M/mm3 (4.30-5.90); White Blood Cell Count 9.49 K/mm3 (4.00-11.30)
[2019-12-23 05:09] LABS: BASOPHILS ABSOLUTE AUTO 0.03 K/mm3 (0.00-0.23); BASOPHILS PERCENT AUTO 0 % (0-2); EOSINOPHILS ABSOLUTE AUTO 0.07 K/mm3 (0.00-0.68); EOSINOPHILS PERCENT AUTO 1 % (0-6); Hematocrit 25.7 % (37.0-53.0); Hemoglobin 8.2 g/dL (13.5-17.5); IMMATURE GRAN ABSOLUTE AUTO 0.05 K/mm3 (0.00-0.10); IMMATURE GRAN PERCENT AUTO 1 % (0-1); LYMPHOCYTES ABSOLUTE AUTO 0.81 K/mm3 (0.84-5.20); LYMPHOCYTES PERCENT AUTO 10 % (21-46); MONOCYTES PERCENT AUTO 14 % (4-13); Mean Corpuscular HGB 30.6 pg (26.0-34.0); Mean Corpuscular HGB Conc 31.9 g/dL (31.5-36.5); Mean Corpuscular Volume 96 fL (80-100); NEUTROPHILS ABSOLUTE AUTO 6.05 K/mm3 (1.96-9.15); NEUTROPHILS PERCENT AUTO 75 % (41-73); Platelet Count 138 K/mm3 (150-400); RDW Coefficient Variation 12.4 % (11.7-14.2); RDW Standard Deviation 42.7 fL (35.1-46.3); Red Blood Cell Count 2.68 M/mm3 (4.30-5.90); White Blood Cell Count 8.11 K/mm3 (4.00-11.30)
[2019-12-23 05:32] LABS: Percent Saturation 11.8 % (20.0-50.0)
[2019-12-23 09:54] LABS: Source, Urine Catheter
[2019-12-23 10:01] LABS: Bilirubin, Urine Neg (Neg); Blood, Urine Neg (Neg); Glucose Qualitative, Urine Neg (Neg); Ketones, Urine Neg (Neg); Leukocyte Esterase, Urine Neg (Neg); Nitrite, Urine Neg (Neg); Protein, Urine Neg (Neg); Specific Gravity, Urine 1.015 (1.003-1.022); Urobilinogen, Urine NORM (Normal)
[2019-12-23 10:06] LABS: Appearance, Urine Clear (Clear); Color, Urine Yellow (P-Yellow)
[2019-12-23 12:57] LABS: Hematocrit 26.2 % (37.0-53.0); Hemoglobin 8.4 g/dL (13.5-17.5)
[2019-12-23 14:01] LABS: Alanine Aminotransfer (ALT/SGP 9 U/L (12-78); Albumin, Blood 2.2 g/dL (3.4-5.0); Albumin/Globulin Ratio 0.7 (0.8-1.8); Alk Phos 46 U/L (50-136); Anion Gap 4 mmol/L (6-16); Aspartate Aminotrans (AST/SGOT 13 U/L (12-37); Bilirubin, Total 0.7 mg/dL (0.1-1.0); Blood Urea Nitrogen 22 mg/dL (8-24); Bun/Creatinine Ratio 20.2 (12.0-20.0); CO2, Blood 29 mmol/L (21-32); Calcium, Blood 8.5 mg/dL (8.5-10.1); Chloride, Blood 109 mmol/L (98-108); Creatinine, Blood 1.09 mg/dL (0.60-1.20); Globulin, Blood 3.1 g/dL (2.2-4.0); Glomerular Filtration Rate >60 (60-); Glucose, Blood 118 mg/dL (70-99); Potassium, Blood 3.6 mmol/L (3.5-5.5); Sodium, Blood 142 mmol/L (136-145); Total Protein, Blood 5.3 g/dL (6.4-8.2)
[2019-12-24 05:04] LABS: Hematocrit 25.6 % (37.0-53.0); Hemoglobin 8.2 g/dL (13.5-17.5); Mean Corpuscular HGB 30.6 pg (26.0-34.0); Mean Corpuscular Volume 96 fL (80-100); Mean Platelet Volume 9.1 fL (9.1-12.4); Platelet Count 182 K/mm3 (150-400); RDW Coefficient Variation 12.3 % (11.7-14.2); RDW Standard Deviation 42.6 fL (35.1-46.3); Red Blood Cell Count 2.68 M/mm3 (4.30-5.90); White Blood Cell Count 8.31 K/mm3 (4.00-11.30)
[2019-12-24 05:22] LABS: Alanine Aminotransfer (ALT/SGP 8 U/L (12-78); Albumin, Blood 2.2 g/dL (3.4-5.0); Albumin/Globulin Ratio 0.7 (0.8-1.8); Alk Phos 45 U/L (50-136); Anion Gap 6 mmol/L (6-16); Aspartate Aminotrans (AST/SGOT 11 U/L (12-37); Bilirubin, Total 0.6 mg/dL (0.1-1.0); Blood Urea Nitrogen 19 mg/dL (8-24); Bun/Creatinine Ratio 20.1 (12.0-20.0); CO2, Blood 28 mmol/L (21-32); Calcium, Blood 8.4 mg/dL (8.5-10.1); Chloride, Blood 108 mmol/L (98-108); Creatinine, Blood 0.94 mg/dL (0.60-1.20); Globulin, Blood 3.2 g/dL (2.2-4.0); Glomerular Filtration Rate >60 (60-); Glucose, Blood 101 mg/dL (70-99); Glutamyl Transpeptidase, GGT 7 U/L (15-85); Potassium, Blood 3.3 mmol/L (3.5-5.5); Sodium, Blood 142 mmol/L (136-145); Total Protein, Blood 5.4 g/dL (6.4-8.2)
[2019-12-25 07:11] LABS: Hematocrit 24.2 % (37.0-53.0); Hemoglobin 7.8 g/dL (13.5-17.5); Mean Corpuscular HGB 30.5 pg (26.0-34.0); Mean Corpuscular HGB Conc 32.2 g/dL (31.5-36.5); Mean Corpuscular Volume 95 fL (80-100); Mean Platelet Volume 9.1 fL (9.1-12.4); Platelet Count 198 K/mm3 (150-400); RDW Coefficient Variation 12.2 % (11.7-14.2); RDW Standard Deviation 42.7 fL (35.1-46.3); Red Blood Cell Count 2.56 M/mm3 (4.30-5.90); White Blood Cell Count 6.68 K/mm3 (4.00-11.30)
[2019-12-25 07:39] LABS: Alanine Aminotransfer (ALT/SGP 7 U/L (12-78); Albumin, Blood 2.1 g/dL (3.4-5.0); Albumin/Globulin Ratio 0.6 (0.8-1.8); Alk Phos 46 U/L (50-136); Anion Gap 5 mmol/L (6-16); Aspartate Aminotrans (AST/SGOT 12 U/L (12-37); Bilirubin, Total 0.7 mg/dL (0.1-1.0); Blood Urea Nitrogen 19 mg/dL (8-24); CO2, Blood 29 mmol/L (21-32); Calcium, Blood 8.5 mg/dL (8.5-10.1); Chloride, Blood 107 mmol/L (98-108); Creatinine, Blood 0.95 mg/dL (0.60-1.20); Globulin, Blood 3.3 g/dL (2.2-4.0); Glomerular Filtration Rate >60 (60-); Glucose, Blood 93 mg/dL (70-99); Potassium, Blood 3.2 mmol/L (3.5-5.5); Sodium, Blood 141 mmol/L (136-145); Total Protein, Blood 5.4 g/dL (6.4-8.2)
[2019-12-25 15:00] LABS: Source, Urine Catheter
[2019-12-25 15:40] LABS: Bilirubin, Urine Neg (Neg); Blood, Urine Neg (Neg); Glucose Qualitative, Urine Neg (Neg); Ketones, Urine Neg (Neg); Leukocyte Esterase, Urine Neg (Neg); Nitrite, Urine Neg (Neg); Protein, Urine 1+ (Neg); Urobilinogen, Urine NORM (Normal)
[2019-12-25 15:51] LABS: Appearance, Urine Clear (Clear); Color, Urine Yellow (P-Yellow)
[2019-12-25 17:52] LABS: Hematocrit 24.8 % (37.0-53.0); Hemoglobin 8.1 g/dL (13.5-17.5)
[2019-12-26 06:00] LABS: Hematocrit 24.1 % (37.0-53.0); Hemoglobin 7.9 g/dL (13.5-17.5); Mean Corpuscular HGB 31.2 pg (26.0-34.0); Mean Corpuscular HGB Conc 32.8 g/dL (31.5-36.5); Mean Corpuscular Volume 95 fL (80-100); Mean Platelet Volume 8.8 fL (9.1-12.4); Platelet Count 227 K/mm3 (150-400); RDW Coefficient Variation 12.3 % (11.7-14.2); RDW Standard Deviation 42.6 fL (35.1-46.3); Red Blood Cell Count 2.53 M/mm3 (4.30-5.90); White Blood Cell Count 5.76 K/mm3 (4.00-11.30)
[2019-12-26 06:24] LABS: Alanine Aminotransfer (ALT/SGP 10 U/L (12-78); Albumin, Blood 2.3 g/dL (3.4-5.0); Albumin/Globulin Ratio 0.6 (0.8-1.8); Alk Phos 55 U/L (50-136); Anion Gap 4 mmol/L (6-16); Aspartate Aminotrans (AST/SGOT 15 U/L (12-37); Bilirubin, Total 0.8 mg/dL (0.1-1.0); Blood Urea Nitrogen 16 mg/dL (8-24); Bun/Creatinine Ratio 18.8 (12.0-20.0); CO2, Blood 30 mmol/L (21-32); Calcium, Blood 8.6 mg/dL (8.5-10.1); Chloride, Blood 105 mmol/L (98-108); Creatinine, Blood 0.85 mg/dL (0.60-1.20); Globulin, Blood 3.8 g/dL (2.2-4.0); Glomerular Filtration Rate >60 (60-); Glucose, Blood 85 mg/dL (70-99); Potassium, Blood 3.5 mmol/L (3.5-5.5); Sodium, Blood 139 mmol/L (136-145); Total Protein, Blood 6.1 g/dL (6.4-8.2)
[2019-12-27 06:52] LABS: Hematocrit 26.5 % (37.0-53.0); Hemoglobin 8.8 g/dL (13.5-17.5); Mean Corpuscular HGB 32.1 pg (26.0-34.0); Mean Corpuscular HGB Conc 33.2 g/dL (31.5-36.5); Mean Corpuscular Volume 97 fL (80-100); Mean Platelet Volume 8.6 fL (9.1-12.4); Platelet Count 266 K/mm3 (150-400); RDW Coefficient Variation 12.5 % (11.7-14.2); RDW Standard Deviation 43.6 fL (35.1-46.3); Red Blood Cell Count 2.74 M/mm3 (4.30-5.90); White Blood Cell Count 5.68 K/mm3 (4.00-11.30)
[2019-12-27 07:11] LABS: Alanine Aminotransfer (ALT/SGP 9 U/L (12-78); Albumin, Blood 2.3 g/dL (3.4-5.0); Albumin/Globulin Ratio 0.6 (0.8-1.8); Alk Phos 59 U/L (50-136); Anion Gap 3 mmol/L (6-16); Aspartate Aminotrans (AST/SGOT 9 U/L (12-37); Bilirubin, Total 0.7 mg/dL (0.1-1.0); Blood Urea Nitrogen 14 mg/dL (8-24); Bun/Creatinine Ratio 17.4 (12.0-20.0); CO2, Blood 31 mmol/L (21-32); Calcium, Blood 8.8 mg/dL (8.5-10.1); Chloride, Blood 109 mmol/L (98-108); Globulin, Blood 3.7 g/dL (2.2-4.0); Glomerular Filtration Rate >60 (60-); Glucose, Blood 93 mg/dL (70-99); Potassium, Blood 3.9 mmol/L (3.5-5.5); Sodium, Blood 143 mmol/L (136-145)
[2019-12-28 07:06] LABS: Hematocrit 24.2 % (37.0-53.0); Hemoglobin 7.9 g/dL (13.5-17.5); Mean Corpuscular HGB 30.9 pg (26.0-34.0); Mean Corpuscular HGB Conc 32.6 g/dL (31.5-36.5); Mean Corpuscular Volume 95 fL (80-100); Mean Platelet Volume 8.4 fL (9.1-12.4); Platelet Count 278 K/mm3 (150-400); RDW Coefficient Variation 12.5 % (11.7-14.2); RDW Standard Deviation 43.2 fL (35.1-46.3); Red Blood Cell Count 2.56 M/mm3 (4.30-5.90); White Blood Cell Count 6.14 K/mm3 (4.00-11.30)
[2019-12-28 07:08] LABS: Alanine Aminotransfer (ALT/SGP 9 U/L (12-78); Albumin, Blood 2.2 g/dL (3.4-5.0); Albumin/Globulin Ratio 0.6 (0.8-1.8); Alk Phos 63 U/L (50-136); Anion Gap 4 mmol/L (6-16); Aspartate Aminotrans (AST/SGOT 6 U/L (12-37); Bilirubin, Total 0.6 mg/dL (0.1-1.0); Blood Urea Nitrogen 18 mg/dL (8-24); Bun/Creatinine Ratio 20.2 (12.0-20.0); CO2, Blood 30 mmol/L (21-32); Calcium, Blood 8.6 mg/dL (8.5-10.1); Chloride, Blood 107 mmol/L (98-108); Creatinine, Blood 0.89 mg/dL (0.60-1.20); Globulin, Blood 3.5 g/dL (2.2-4.0); Glomerular Filtration Rate >60 (60-); Glucose, Blood 92 mg/dL (70-99); Sodium, Blood 141 mmol/L (136-145); Total Protein, Blood 5.7 g/dL (6.4-8.2)
[2019-12-29 05:13] LABS: BASOPHILS ABSOLUTE AUTO 0.07 K/mm3 (0.00-0.23); BASOPHILS PERCENT AUTO 1 % (0-2); EOSINOPHILS ABSOLUTE AUTO 0.35 K/mm3 (0.00-0.68); EOSINOPHILS PERCENT AUTO 5 % (0-6); Hematocrit 32.4 % (37.0-53.0); Hemoglobin 10.3 g/dL (13.5-17.5); IMMATURE GRAN ABSOLUTE AUTO 0.09 K/mm3 (0.00-0.10); IMMATURE GRAN PERCENT AUTO 1 % (0-1); LYMPHOCYTES ABSOLUTE AUTO 1.13 K/mm3 (0.84-5.20); LYMPHOCYTES PERCENT AUTO 17 % (21-46); MONOCYTES ABSOLUTE AUTO 0.63 K/mm3 (0.16-1.47); MONOCYTES PERCENT AUTO 10 % (4-13); Mean Corpuscular HGB Conc 31.8 g/dL (31.5-36.5); Mean Corpuscular Volume 95 fL (80-100); Mean Platelet Volume 8.5 fL (9.1-12.4); NEUTROPHILS ABSOLUTE AUTO 4.25 K/mm3 (1.96-9.15); NEUTROPHILS PERCENT AUTO 65 % (41-73); Platelet Count 348 K/mm3 (150-400); RDW Coefficient Variation 13.8 % (11.7-14.2); RDW Standard Deviation 47.3 fL (35.1-46.3); Red Blood Cell Count 3.43 M/mm3 (4.30-5.90); White Blood Cell Count 6.52 K/mm3 (4.00-11.30)
[2019-12-29 05:46] LABS: Alanine Aminotransfer (ALT/SGP 12 U/L (12-78); Albumin, Blood 2.8 g/dL (3.4-5.0); Albumin/Globulin Ratio 0.7 (0.8-1.8); Alk Phos 80 U/L (50-136); Anion Gap 6 mmol/L (6-16); Aspartate Aminotrans (AST/SGOT 16 U/L (12-37); Blood Urea Nitrogen 24 mg/dL (8-24); Bun/Creatinine Ratio 25.4 (12.0-20.0); CO2, Blood 29 mmol/L (21-32); Calcium, Blood 9.3 mg/dL (8.5-10.1); Chloride, Blood 105 mmol/L (98-108); Creatinine, Blood 0.95 mg/dL (0.60-1.20); Globulin, Blood 4.2 g/dL (2.2-4.0); Glomerular Filtration Rate >60 (60-); Glucose, Blood 91 mg/dL (70-99); Sodium, Blood 140 mmol/L (136-145)
== END 2019-12-30 16:37 | DRG 480 ==
LOC: ER 18:14 → SURS 21:48
PROVIDERS: Emergency Medicine; Family Medicine; Internal Medicine; Orthopaedic Surgery; ADMIT Internal Medicine
PROC: 30233N1 Transfusion of Nonautologous Red Blood Cells into Peripheral Vein, Percutaneous Approach (ICD-10-PCS; 2019-12-21)
PROC: 0QS604Z Reposition Right Upper Femur with Internal Fixation Device, Open Approach (ICD-10-PCS; principal; 2019-12-21 16:30)
DX: S72.141A Displaced intertrochanteric fracture of right femur, initial encounter for closed fracture (principal); G93.41 Metabolic encephalopathy; D62 Acute posthemorrhagic anemia; F05 Delirium due to known physiological condition; F10.239 Alcohol dependence with withdrawal, unspecified; Z20.828 Contact with and (suspected) exposure to other viral communicable diseases; Z85.038 Personal history of other malignant neoplasm of large intestine; F17.220 Nicotine dependence, chewing tobacco, uncomplicated; Z85.46 Personal history of malignant neoplasm of prostate; Z87.820 Personal history of traumatic brain injury; W18.30XA Fall on same level, unspecified, initial encounter; Y92.9 Unspecified place or not applicable; F10.21 Alcohol dependence, in remission; M85.851 Other specified disorders of bone density and structure, right thigh; D64.9 Anemia, unspecified; E55.9 Vitamin D deficiency, unspecified; E87.6 Hypokalemia; M85.80 Other specified disorders of bone density and structure, unspecified site
CPT/HCPCS: 36415; 36430; 71045; 72170; 73502; 73552; 73562-LT; 80053; 81003; 82140; 82306; 82728; 82977; 83540; 83550; 85014; 85018; 85025; 85027; 85610; 85730; 86850; 86900; 86901; 86923; 92507; 92523; 93005; 93010; 96374; 97110; 97116; 97161; 97530; 99285-25; A9270; A9270-GY; C1713; J0690; J1650; J2060; J2250; J2704; J3010; J7030; J7050; J7120; P9016; U0004

== ENCOUNTER 2021-02-15 08:33 | Day surgery (SDC) | payer OTHER ==
[~2021-02-15] VITALS: Ht 170.2 cm; Wt 61.3 kg
[~2021-02-15 08:33] MED LIST changes: +Florastor250 MG PO; +Norco 5-325 Ta1 EACH PO
[2021-02-15] MEDS ORDERED: ACET500 PO (09:19)
[2021-02-15] MEDS ORDERED: IBUP200 PO (09:19)
--- NOTE | 2021-02-15 09:33 | NUR ---
History, Chart, Medications and Allergies reviewed before start of procedure. Patient confirms NPO status and agrees with scheduled surgery. Lungs clear T/O to Auscultation. NOZIN NASAL COMPENSATOR X3 AMPULES USED TO CLEAN NARES BILAT PER ORDER. KNEE HIGH MICKIE HOSE AND CALF PAS APPLIED TO BLE.
--- NOTE | 2021-02-15 09:42 | NUR ---
PATIENT VOIDED USING A URINAL AT BEDSIDE.
--- NOTE | 2021-02-15 14:38 | NUR ---
PT TELLS ME HE DOESNT KNOW WHATS GOING ON, PULLED ICE PACK OFF HIP AND ASKING WHAT IT WAS AND WHAT IT WAS DOING ON HIS LEG. SPOKE WITH PATIENT AND REORIENTED TO SURROUNDINGS. PT DOES NOT RECAL THAT HE WAS HAVING HIP SURGERY, PLEASANT AND COOPERATIVE. CALL LIGHT IN REACH AND BED ALARM IN PLCE
--- NOTE | 2021-02-15 17:14 | NUR ---
PT ORIENTED TO PERSON, WHEN TOLD HE IS IN THE HOSPITAL ASKS HOW HE GOT HER AND IF WE SHOT HIM UP WITH DRUGS. PT DOES NOT RECALL THAT HE WAS HAVING HIP SURGERY. BED ALARM IN PLACE, PT HAS MADE NO ATTEMPTS TO GET OOB. PT FACE PAIN SCORE 1-2. AILYN PO FLUIDS WITHOUT NAUSEA AND STATES JUST NOT HUNGRY. INCONTINENT OF URINE. LEFT HIP DRESSING DRY AND INTACT
--- NOTE | 2021-02-15 21:44 | NUR ---
Agitation/Confusion Pt A/Ox1, screaming out and swearing. Pt reoriented multiple times. Risk of falling out of bed. Bed alarm on and call light within reach. Dr. Waggoner made aware. Orders for PRN haldol. Will adminster to pt. See EMAR. WCTM
[2021-02-16 04:20] LABS: BASOPHILS ABSOLUTE AUTO 0.01 K/mm3 (0.00-0.23); BASOPHILS PERCENT AUTO 0 % (0-2); EOSINOPHILS PERCENT AUTO 0 % (0-6); Hematocrit 28.9 % (37.0-53.0); Hemoglobin 9.6 g/dL (13.5-17.5); IMMATURE GRAN ABSOLUTE AUTO 0.05 K/mm3 (0.00-0.10); IMMATURE GRAN PERCENT AUTO 0 % (0-1); LYMPHOCYTES ABSOLUTE AUTO 0.71 K/mm3 (0.84-5.20); LYMPHOCYTES PERCENT AUTO 6 % (21-46); MONOCYTES ABSOLUTE AUTO 1.23 K/mm3 (0.16-1.47); MONOCYTES PERCENT AUTO 10 % (4-13); Mean Corpuscular HGB 30.9 pg (26.0-34.0); Mean Corpuscular HGB Conc 33.2 g/dL (31.5-36.5); Mean Corpuscular Volume 93 fL (80-100); Mean Platelet Volume 8.9 fL (9.1-12.4); NEUTROPHILS PERCENT AUTO 85 % (41-73); Platelet Count 163 K/mm3 (150-400); RDW Coefficient Variation 13.4 % (11.7-14.2); Red Blood Cell Count 3.11 M/mm3 (4.30-5.90)
--- NOTE | 2021-02-16 04:52 | NUR ---
SHIFT SUMMARY Pt A/Ox 1-2. hx of dementia. Confusion and agitiation at start of shift. Haldol was ordered, but did not have to be given. Pt slept through the night. More pleasant in the am. VS stable but aysymptomatic hypotension. Continuous fluids infused over night per order. See EMAR. Pain controlled with scheduled medications for pain. Pt incontinent of urine in brief x2. Aquacel surgical dressing C/D/I, but swelling and increased redness/bruising noted under skin around aquacel. Polar pack off because patient is refusing. WCTM
[2021-02-16 05:15] LABS: Bun/Creatinine Ratio 32.8 (12.0-20.0); Calcium, Blood 8.3 mg/dL (8.5-10.1); Creatinine, Blood 1.34 mg/dL (0.60-1.20); Potassium, Blood 4.3 mmol/L (3.5-5.5)
[2021-02-16] MEDS ORDERED: XARELTO20 MG PO (13:01)
[2021-02-16] MEDS ORDERED: TRAM50 PO (13:01)
--- NOTE | 2021-02-16 15:40 | NUR ---
6414 pts son here during pt appointment. patient cleared for discharge by pt. spoke with patients son whom patient lives with and he tells me he is comfortable with patient returning home and is able to meet patients care needs. pts son assisted patient with dressing in clothing and getting oob with assist of walke. pt reports "very little pain" left hip dressing dry and intact. pt katt small amounts po food and fluids per patient he states has no appetite.
--- NOTE | 2021-02-16 15:42 | NUR ---
1500 discharged to home with son. pts son attentive to patient and verbalizes understanding of discharge instructions. discharged to home
== END 2021-02-16 15:11 | disposition home or self-care (01) ==
LOC: ORSCMMR 08:33 → SURS 12:55 → ORSCMMR 02-16 15:11
PROVIDERS: Orthopaedic Surgery
PROC: 0SRB0JZ Replacement of Left Hip Joint with Synthetic Substitute, Open Approach (ICD-10-PCS; principal; 2021-02-15 10:00)
DX: M16.12 Unilateral primary osteoarthritis, left hip (principal); Z87.891 Personal history of nicotine dependence; Z85.46 Personal history of malignant neoplasm of prostate
CPT/HCPCS: 36415; 72170; 80048; 85025; 97110; 97161; A9270; C1776; J0171; J0690; J0735; J1100; J1885; J2370; J2405; J2704; J2795; J3010; J7120

== ENCOUNTER 2021-08-28 17:47 | Emergency (ER) | payer OTHER ==
[~2021-08-28] VITALS: Ht 172.7 cm; Wt 65.3 kg
[~2021-08-28 17:47] MED LIST changes: +ACET500 PO; +IBUP200 PO; +TRAM50 PO; +XARELTO20 MG PO
[2021-08-28 19:23] LABS: BASOPHILS ABSOLUTE AUTO 0.01 K/mm3 (0.00-0.23); BASOPHILS PERCENT AUTO 0 % (0-2); EOSINOPHILS ABSOLUTE AUTO 0.05 K/mm3 (0.00-0.68); EOSINOPHILS PERCENT AUTO 2 % (0-6); Hematocrit 38.2 % (37.0-53.0); Hemoglobin 12.9 g/dL (13.5-17.5); IMMATURE GRAN ABSOLUTE AUTO 0.01 K/mm3 (0.00-0.10); IMMATURE GRAN PERCENT AUTO 0 % (0-1); LYMPHOCYTES ABSOLUTE AUTO 0.85 K/mm3 (0.84-5.20); LYMPHOCYTES PERCENT AUTO 28 % (21-46); MONOCYTES ABSOLUTE AUTO 0.53 K/mm3 (0.16-1.47); MONOCYTES PERCENT AUTO 18 % (4-13); Mean Corpuscular HGB 29.8 pg (26.0-34.0); Mean Corpuscular HGB Conc 33.8 g/dL (31.5-36.5); Mean Corpuscular Volume 88 fL (80-100); Mean Platelet Volume 9.6 fL (9.1-12.4); NEUTROPHILS ABSOLUTE AUTO 1.57 K/mm3 (1.96-9.15); NEUTROPHILS PERCENT AUTO 52 % (41-73); Platelet Count 126 K/mm3 (150-400); RDW Coefficient Variation 13.2 % (11.7-14.2); RDW Standard Deviation 43.2 fL (35.1-46.3); Red Blood Cell Count 4.33 M/mm3 (4.30-5.90); White Blood Cell Count 3.02 K/mm3 (4.00-11.30)
[2021-08-28 19:52] LABS: Albumin, Blood 3.4 g/dL (3.4-5.0); Bilirubin, Total 0.4 mg/dL (0.1-1.0); Bun/Creatinine Ratio 22.1 (12.0-20.0); Calcium, Blood 8.8 mg/dL (8.5-10.1); Creatinine, Blood 2.26 mg/dL (0.60-1.20); Globulin, Blood 3.5 g/dL (2.2-4.0); Potassium, Blood 3.6 mmol/L (3.5-5.5); Total Protein, Blood 6.9 g/dL (6.4-8.2)
== END 2021-08-28 21:35 | disposition home or self-care (01) ==
LOC: ER 17:47
PROVIDERS: Emergency Medicine
DX: J44.9 Chronic obstructive pulmonary disease, unspecified (principal); R32 Unspecified urinary incontinence; F17.220 Nicotine dependence, chewing tobacco, uncomplicated; Z86.718 Personal history of other venous thrombosis and embolism
CPT/HCPCS: 36415; 71046; 80053; 85025; 99285-25

== ENCOUNTER → 2022-04-23 | Outpatient (CLI) | payer OTHER ==
[~2022-04-23] MED LIST changes: +CEFD300 PO; +DONE5 PO; +ELIQUIS2.5 MG; +GABA100 PO; +IBUP800 PO; +OMEP20ER PO; +OXYB5 PO
[2022-04-23 14:44] LABS: Albumin, Blood 3.5 g/dL (3.4-5.0); Anion Gap 8 mmol/L (6-16); Blood Urea Nitrogen 26 mg/dL (8-24); Bun/Creatinine Ratio 13.4 (12.0-20.0); CO2, Blood 28 mmol/L (21-32); Calcium, Blood 9.2 mg/dL (8.5-10.1); Chloride, Blood 105 mmol/L (98-108); Creatinine, Blood 1.94 mg/dL (0.60-1.20); Glomerular Filtration Rate 34 (60-); Glucose, Blood 124 mg/dL (70-99); Phosphorus, Blood 3.2 mg/dL (2.5-4.9); Potassium, Blood 4.3 mmol/L (3.5-5.5); Sodium, Blood 141 mmol/L (136-145)
== END | disposition home or self-care (01) ==
LOC: LAB 13:30 → LAB SHORT 13:30
PROVIDERS: Family Medicine
DX: N18.32 Chronic kidney disease, stage 3b (principal)
CPT/HCPCS: 36415; 80069

== ENCOUNTER → 2022-06-21 | Outpatient (CLI) | payer OTHER ==
[2022-06-21 13:03] LABS: BASOPHILS ABSOLUTE AUTO 0.07 K/mm3 (0.00-0.23); BASOPHILS PERCENT AUTO 1 % (0-2); EOSINOPHILS ABSOLUTE AUTO 0.29 K/mm3 (0.00-0.68); EOSINOPHILS PERCENT AUTO 4 % (0-6); Hematocrit 41.4 % (37.0-53.0); Hemoglobin 13.5 g/dL (13.5-17.5); IMMATURE GRAN ABSOLUTE AUTO 0.02 K/mm3 (0.00-0.10); IMMATURE GRAN PERCENT AUTO 0 % (0-1); LYMPHOCYTES PERCENT AUTO 13 % (21-46); MONOCYTES ABSOLUTE AUTO 0.62 K/mm3 (0.16-1.47); MONOCYTES PERCENT AUTO 8 % (4-13); Mean Corpuscular HGB Conc 32.6 g/dL (31.5-36.5); Mean Corpuscular Volume 89 fL (80-100); Mean Platelet Volume 8.6 fL (9.1-12.4); NEUTROPHILS ABSOLUTE AUTO 6.09 K/mm3 (1.96-9.15); NEUTROPHILS PERCENT AUTO 74 % (41-73); Platelet Count 237 K/mm3 (150-400); RDW Coefficient Variation 14.1 % (11.7-14.2); RDW Standard Deviation 45.2 fL (35.1-46.3); Red Blood Cell Count 4.66 M/mm3 (4.30-5.90); White Blood Cell Count 8.19 K/mm3 (4.00-11.30)
[2022-06-21 13:14] LABS: Albumin, Blood 3.7 g/dL (3.4-5.0); Albumin/Globulin Ratio 1.1 (0.8-1.8); Bilirubin, Total 0.4 mg/dL (0.1-1.0); Bun/Creatinine Ratio 7.8 (12.0-20.0); Creatinine, Blood 2.06 mg/dL (0.60-1.20); Globulin, Blood 3.5 g/dL (2.2-4.0); Potassium, Blood 4.7 mmol/L (3.5-5.5); Total Protein, Blood 7.2 g/dL (6.4-8.2)
== END | disposition home or self-care (01) ==
LOC: LAB SHORT 12:58 → LAB 12:58
PROVIDERS: Emergency Medicine
DX: R31.9 Hematuria, unspecified (principal)
CPT/HCPCS: 80053; 85025

== ENCOUNTER → 2022-06-27 | Outpatient (CLI) | payer OTHER ==
[2022-06-27 12:00] LABS: Source, Urine Fem Cath
[2022-06-27 13:33] LABS: Appearance, Urine Turbid (Clear); Bilirubin, Urine Neg (Neg); Blood, Urine 4+ (Neg); Glucose Qualitative, Urine Neg (Neg); Ketones, Urine Neg (Neg); Leukocyte Esterase, Urine 3+ (Neg); Nitrite, Urine Neg (Neg); Protein, Urine 3+ (Neg); Specific Gravity, Urine 1.015 (1.003-1.022); Urobilinogen, Urine NORM (Normal)
[2022-06-27 13:43] LABS: Bacteria Many /hpf; Mucus Mod (0-Heavy); Red Blood Cells, Urine 25-50 /hpf (0-2); Squamous Epithelial Cells Mod /hpf (Few); White Blood Cells, Urine 50-100 /hpf (0-5)
[2022-06-27 14:04] LABS: Color, Urine Pale Yellow (P-Yellow)
== END ==
LOC: LAB SHORT 11:20 → LAB 11:20
PROVIDERS: Physician Assistant
DX: R82.90 Unspecified abnormal findings in urine (principal)
CPT/HCPCS: 81001; 87077; 87086; 87186

== ENCOUNTER 2022-11-08 05:23 | Emergency (ER) | payer OTHER ==
[~2022-11-08] VITALS: Ht 172.7 cm; Wt 65.8 kg
[2022-11-08 07:24] LABS: BASOPHILS ABSOLUTE AUTO 0.03 K/mm3 (0.00-0.23); BASOPHILS PERCENT AUTO 0 % (0-2); EOSINOPHILS ABSOLUTE AUTO 0.29 K/mm3 (0.00-0.68); EOSINOPHILS PERCENT AUTO 4 % (0-6); Hematocrit 32.3 % (37.0-53.0); Hemoglobin 10.2 g/dL (13.5-17.5); IMMATURE GRAN ABSOLUTE AUTO 0.01 K/mm3 (0.00-0.10); IMMATURE GRAN PERCENT AUTO 0 % (0-1); LYMPHOCYTES ABSOLUTE AUTO 0.89 K/mm3 (0.84-5.20); LYMPHOCYTES PERCENT AUTO 12 % (21-46); MONOCYTES PERCENT AUTO 13 % (4-13); Mean Corpuscular HGB 27.1 pg (26.0-34.0); Mean Corpuscular HGB Conc 31.6 g/dL (31.5-36.5); Mean Corpuscular Volume 86 fL (80-100); Mean Platelet Volume 9.1 fL (9.1-12.4); NEUTROPHILS PERCENT AUTO 71 % (41-73); Platelet Count 214 K/mm3 (150-400); RDW Coefficient Variation 13.2 % (11.7-14.2); RDW Standard Deviation 41.3 fL (35.1-46.3); Red Blood Cell Count 3.76 M/mm3 (4.30-5.90); White Blood Cell Count 7.52 K/mm3 (4.00-11.30)
[2022-11-08 07:40] LABS: Albumin, Blood 3.3 g/dL (3.4-5.0); Albumin/Globulin Ratio 1.1 (0.8-1.8); Bilirubin, Total 0.4 mg/dL (0.1-1.0); Bun/Creatinine Ratio 17.3 (12.0-20.0); Calcium, Blood 8.4 mg/dL (8.5-10.1); Creatinine, Blood 1.33 mg/dL (0.60-1.20); Globulin, Blood 3.1 g/dL (2.2-4.0); Total Protein, Blood 6.4 g/dL (6.4-8.2)
[2022-11-08 09:21] LABS: Source, Urine Foley catheter
[2022-11-08 09:25] LABS: Appearance, Urine Cloudy (Clear); Bilirubin, Urine Neg (Neg); Blood, Urine 5+ (Neg); Color, Urine Red (P-Yellow); Glucose Qualitative, Urine Neg (Neg); Ketones, Urine Neg (Neg); Leukocyte Esterase, Urine 3+ (Neg); Nitrite, Urine Neg (Neg); Protein, Urine 3+ (Neg); Specific Gravity, Urine 1.015 (1.003-1.022); Urobilinogen, Urine NORM (Normal)
[2022-11-08 09:35] LABS: Red Blood Cells, Urine TNTC /hpf (0-2)
[2022-11-08 09:44] LABS: Bacteria Rare /hpf; Squamous Epithelial Cells Not Seen /hpf (Few)
[2022-11-08] MEDS ORDERED: CEFP200 PO (10:29)
[2022-11-08 11:00] VITALS: BP 132/76
== END 2022-11-08 11:45 | disposition home or self-care (01) ==
LOC: ER 05:23
PROVIDERS: Emergency Medicine
DX: T83.098A Other mechanical complication of other urinary catheter, initial encounter (principal); Z79.899 Other long term (current) drug therapy; Z87.891 Personal history of nicotine dependence
CPT/HCPCS: 51700; 80053; 81001; 85025; 99283-25; A9270; J0696

== ENCOUNTER 2022-11-26 07:25 | Emergency (ER) | payer OTHER ==
[~2022-11-26] VITALS: Ht 172.7 cm; Wt 63.5 kg
[~2022-11-26 07:25] MED LIST changes: +CEFP200 PO
[2022-11-26 08:22] LABS: Source, Urine Foley catheter
[2022-11-26 08:27] LABS: BASOPHILS ABSOLUTE AUTO 0.07 K/mm3 (0.00-0.23); BASOPHILS PERCENT AUTO 1 % (0-2); EOSINOPHILS ABSOLUTE AUTO 0.39 K/mm3 (0.00-0.68); EOSINOPHILS PERCENT AUTO 5 % (0-6); Hematocrit 32.9 % (37.0-53.0); Hemoglobin 10.3 g/dL (13.5-17.5); IMMATURE GRAN ABSOLUTE AUTO 0.02 K/mm3 (0.00-0.10); IMMATURE GRAN PERCENT AUTO 0 % (0-1); LYMPHOCYTES ABSOLUTE AUTO 1.32 K/mm3 (0.84-5.20); LYMPHOCYTES PERCENT AUTO 17 % (21-46); MONOCYTES PERCENT AUTO 9 % (4-13); Mean Corpuscular HGB 26.5 pg (26.0-34.0); Mean Corpuscular HGB Conc 31.3 g/dL (31.5-36.5); Mean Corpuscular Volume 85 fL (80-100); NEUTROPHILS ABSOLUTE AUTO 5.14 K/mm3 (1.96-9.15); NEUTROPHILS PERCENT AUTO 67 % (41-73); Platelet Count 242 K/mm3 (150-400); RDW Coefficient Variation 13.1 % (11.7-14.2); RDW Standard Deviation 40.4 fL (35.1-46.3); Red Blood Cell Count 3.89 M/mm3 (4.30-5.90); White Blood Cell Count 7.64 K/mm3 (4.00-11.30)
[2022-11-26 08:30] LABS: Appearance, Urine Hazy (Clear); Bilirubin, Urine Neg (Neg); Blood, Urine 5+ (Neg); Color, Urine Yellow (P-Yellow); Glucose Qualitative, Urine Neg (Neg); Ketones, Urine Neg (Neg); Leukocyte Esterase, Urine 3+ (Neg); Nitrite, Urine Neg (Neg); Protein, Urine 2+ (Neg); Specific Gravity, Urine 1.015 (1.003-1.022); Urobilinogen, Urine NORM (Normal)
[2022-11-26 08:37] LABS: Red Blood Cells, Urine 25-50 /hpf (0-2); Squamous Epithelial Cells Not Seen /hpf (Few); White Blood Cells, Urine 25-50 /hpf (0-5)
[2022-11-26 08:38] LABS: Bacteria Few /hpf; Yeast/Fungi Urine Few /hpf
[2022-11-26 08:50] LABS: Bun/Creatinine Ratio 12.9 (12.0-20.0); Calcium, Blood 8.7 mg/dL (8.5-10.1); Creatinine, Blood 1.63 mg/dL (0.60-1.20); Potassium, Blood 4.1 mmol/L (3.5-5.5)
[2022-11-26] MEDS ORDERED: CEFP200 PO (09:02)
[2022-11-26 09:45] VITALS: BP 122/56
== END 2022-11-26 09:50 | disposition home or self-care (01) ==
LOC: ER 07:25
PROVIDERS: Emergency Medicine
DX: T83.091A Other mechanical complication of indwelling urethral catheter, initial encounter (principal); N39.0 Urinary tract infection, site not specified; N13.30 Unspecified hydronephrosis; N20.0 Calculus of kidney; D72.829 Elevated white blood cell count, unspecified; D64.9 Anemia, unspecified; F17.220 Nicotine dependence, chewing tobacco, uncomplicated; Z79.01 Long term (current) use of anticoagulants; Z79.899 Other long term (current) drug therapy; Z86.73 Personal history of transient ischemic attack (TIA), and cerebral infarction without residual deficits; Z85.49 Personal history of malignant neoplasm of other male genital organs; Z85.038 Personal history of other malignant neoplasm of large intestine
CPT/HCPCS: 51702; 80048; 81001; 85025; 87077; 87086; 87186; 96374; 96375; 99284-25; J2405; J3010; P9612

== ENCOUNTER 2024-10-03 20:38 | Emergency (ER) | payer OTHER ==
[~2024-10-03] VITALS: Ht 180.3 cm; Wt 66.2 kg
[2024-10-03 21:11] LABS: BASOPHILS ABSOLUTE AUTO 0.07 K/mm3 (0.00-0.23); BASOPHILS PERCENT AUTO 1 % (0-2); EOSINOPHILS ABSOLUTE AUTO 0.34 K/mm3 (0.00-0.68); EOSINOPHILS PERCENT AUTO 4 % (0-6); Hematocrit 39.1 % (37.0-53.0); Hemoglobin 12.7 g/dL (13.5-17.5); IMMATURE GRAN ABSOLUTE AUTO 0.02 K/mm3 (0.00-0.10); IMMATURE GRAN PERCENT AUTO 0 % (0-1); LYMPHOCYTES ABSOLUTE AUTO 1.30 K/mm3 (0.84-5.20); LYMPHOCYTES PERCENT AUTO 17 % (21-46); MONOCYTES ABSOLUTE AUTO 0.77 K/mm3 (0.16-1.47); MONOCYTES PERCENT AUTO 10 % (4-13); Mean Corpuscular HGB Conc 32.5 g/dL (31.5-36.5); Mean Corpuscular Volume 93 fL (80-100); NEUTROPHILS ABSOLUTE AUTO 5.33 K/mm3 (1.96-9.15); NEUTROPHILS PERCENT AUTO 68 % (41-73); NRBC ABSOLUTE 0.00 K/mm3 (0.00-0.02); NRBC Auto 0.0 /100 WBC (0.0-0.2); Platelet Count 203 K/mm3 (150-400); RDW Coefficient Variation 13.6 % (11.7-14.2); RDW Standard Deviation 46.0 fL (35.1-46.3)
[2024-10-03 21:41] LABS: Alanine Aminotransfer (ALT/SGP 14.0 U/L (12-78); Albumin, Blood 3.7 g/dL (3.4-5.0); Albumin/Globulin Ratio 1.1 (0.8-1.8); Anion Gap 6.0 mmol/L (3-11); Aspartate Aminotrans (AST/SGOT 13.0 U/L (12-37); Bilirubin, Total 0.4 mg/dL (0.1-1.0); Blood Urea Nitrogen 34.0 mg/dL (8-24); CO2, Blood 25.0 mmol/L (21-32); Calcium, Blood 8.6 mg/dL (8.5-10.1); Chloride, Blood 109.0 mmol/L (98-108); Creatinine, Blood 1.73 mg/dL (0.60-1.20); Globulin, Blood 3.3 g/dL (2.2-4.0); Glucose, Blood 91.0 mg/dL (70-99); Potassium, Blood 4.3 mmol/L (3.5-5.5); Sodium, Blood 136.0 mmol/L (136-145); Total Protein, Blood 7.0 g/dL (6.4-8.2)
[2024-10-03] MEDS ORDERED: CELEXA10 MG PO (23:49)
[2024-10-04 00:30] VITALS: BP 154/79
== END 2024-10-04 00:48 | disposition home or self-care (01) ==
LOC: ER 20:38
PROVIDERS: Physician Assistant
DX: I82.512 Chronic embolism and thrombosis of left femoral vein (principal); I82.532 Chronic embolism and thrombosis of left popliteal vein; I82.812 Embolism and thrombosis of superficial veins of left lower extremity; I89.0 Lymphedema, not elsewhere classified; R79.89 Other specified abnormal findings of blood chemistry; B35.1 Tinea unguium; Z79.899 Other long term (current) drug therapy; Z79.01 Long term (current) use of anticoagulants; F17.290 Nicotine dependence, other tobacco product, uncomplicated; F17.220 Nicotine dependence, chewing tobacco, uncomplicated
CPT/HCPCS: 71046; 80053; 83880; 85025; 93005; 93010; 93971; 99284-25

== ENCOUNTER 2024-10-20 12:04 | Inpatient (IN) | payer OTHER ==
[~2024-10-20] VITALS: Ht 172.7 cm; Wt 70.0 kg
[~2024-10-20 12:04] MED LIST changes: +CELEXA10 MG PO
[2024-10-20 13:06] LABS: BASOPHILS ABSOLUTE AUTO 0.05 K/mm3 (0.00-0.23); BASOPHILS PERCENT AUTO 1 % (0-2); EOSINOPHILS ABSOLUTE AUTO 0.20 K/mm3 (0.00-0.68); EOSINOPHILS PERCENT AUTO 3 % (0-6); Hematocrit 37.3 % (37.0-53.0); Hemoglobin 11.9 g/dL (13.5-17.5); IMMATURE GRAN ABSOLUTE AUTO 0.02 K/mm3 (0.00-0.10); IMMATURE GRAN PERCENT AUTO 0 % (0-1); LYMPHOCYTES ABSOLUTE AUTO 0.84 K/mm3 (0.84-5.20); LYMPHOCYTES PERCENT AUTO 10 % (21-46); MONOCYTES ABSOLUTE AUTO 0.87 K/mm3 (0.16-1.47); MONOCYTES PERCENT AUTO 11 % (4-13); Mean Corpuscular HGB Conc 31.9 g/dL (31.5-36.5); Mean Corpuscular Volume 94 fL (80-100); NEUTROPHILS ABSOLUTE AUTO 6.08 K/mm3 (1.96-9.15); NEUTROPHILS PERCENT AUTO 76 % (41-73); NRBC ABSOLUTE 0.00 K/mm3 (0.00-0.02); NRBC Auto 0.0 /100 WBC (0.0-0.2); Platelet Count 221 K/mm3 (150-400); RDW Coefficient Variation 13.4 % (11.7-14.2); RDW Standard Deviation 46.3 fL (35.1-46.3)
[2024-10-20 13:43] LABS: Alanine Aminotransfer (ALT/SGP 15.0 U/L (12-78); Albumin, Blood 3.3 g/dL (3.4-5.0); Albumin/Globulin Ratio 0.9 (0.8-1.8); Anion Gap 8.0 mmol/L (3-11); Aspartate Aminotrans (AST/SGOT 18.0 U/L (12-37); Bilirubin, Total 0.3 mg/dL (0.1-1.0); Blood Urea Nitrogen 23.0 mg/dL (8-24); C-REACTIVE PROTEIN, EXT RANGE 1.76 mg/dL (0.000-0.300); CO2, Blood 27.0 mmol/L (21-32); Calcium, Blood 8.4 mg/dL (8.5-10.1); Chloride, Blood 102.0 mmol/L (98-108); Creatinine, Blood 2.0 mg/dL (0.60-1.20); Globulin, Blood 3.5 g/dL (2.2-4.0); Glucose, Blood 89.0 mg/dL (70-99); Potassium, Blood 4.6 mmol/L (3.5-5.5); Sodium, Blood 132.0 mmol/L (136-145); Total Protein, Blood 6.8 g/dL (6.4-8.2)
[2024-10-20] MEDS ORDERED: CeFAZolin Sodium 1,000 MG in NS 50 ML IV SCH (18:00)
[2024-10-20 19:52] VITALS: BP 129/76
--- NOTE | 2024-10-20 20:03 | NUR ---
Patient arrived to room 359 via wheelchair from ER at 1845. Patient assisted to bed, positioned for comfort. Denied pain, SOB, CP, N/V/D. Report given to manager shift nurse.
[2024-10-20] MEDS ORDERED: Lactobacil 2-S.Thermo-Bifido 1 1 Cap PO SCH (21:00)
[2024-10-20] MEDS ORDERED: Heparin Sodium,Porcine 5,000 UNIT/0.5 ML SDV SC SCH (21:00)
--- NOTE | 2024-10-20 22:12 | NUR ---
PATIENT IS A NEW ADMIT ON DAY SHIFT. BECOMING INCREASING AGITATED AND VIOLENT SWINGING AT THIS RN WITH CHARGE NURSE TELMA PRESENT IN ROOM. BACK IN BED BUT BACK OUT CURSING AGAIN AND YELLING AT STAFF. PATIENT IN WITH BLE CELLULITIS AND UNSTEADY ON FEET. ALERT TO SELF AND MENOMINEE. KNOW MONTH AFTER THREE TRIES BUT NOT YEAR OR WHAT TYPE OF HOUSING HE HAS. PATIENT WAS COOPERATIVE WITH ASSESSMENT A FEW HOURS AGO AND PROVIDE FOOD PER DIET ORDER AND THANKFUL. KATRINA.
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
[2024-10-20] MEDS ORDERED: NS 250 ML IV PRN (22:50)
[2024-10-20] MEDS ORDERED: FentaNYL Citrate 50 MCG/ML 2 ML Injection IV ONE (23:10)
[2024-10-20] MEDS ORDERED: LORazepam 2 MG/ML 1ML Injection IV ONE (23:10)
--- NOTE | 2024-10-21 00:25 | NUR ---
PATIENT PULLED OUT OF WRIST RESTRAINT AND KICKING AND SWINGING WHEN ATTEMPT TO PUT HIM BACK IN. ANOTHER RN ASSISTED AND BACK IN. CONFUSED AT THIS TIME. HOSPITALIST CALYL WINTERS ORDERED IV FENTANYL 50 MCG X ONE AND IV ATIVAN 1 MG X ONE.
--- NOTE | 2024-10-21 03:58 | NUR ---
SHIFT SUMMARY PATIENT WAS PLEASANT DURING ADMIT AND THANKFUL. AXOX 2 WITH CONFUSION AND [place]. NO YEAR, FACILITY, OR WHERE HE IS LIVING. GOT THE MONTH RIGHT AFTER PAUSING. LATER AGITATED AND CURSING WITH OUT OF BED ACTIVATING ALARM. REFUSED TO GET BACK INTO BED AND STAFF CALLED IN (SEE NOTES). IN BILATERAL WRIST RESTRAINTS PER ORDER. TRAMADOL 50 MG GIVEN X ONE FOR BILATERAL FEET PAIN. PIV INTACT. PATIENT SWITCHES FROM BEING NICE TO AGITATED. CALL LIGHT IN REACH. BED IN LOWEST POSITION. WILL CONTINUE TO MONITOR UNTIL DAY SHIFT NURSE ASSUMES CARE.
[2024-10-21 04:39] VITALS: BP 115/100
[2024-10-21 05:13] LABS: BASOPHILS ABSOLUTE AUTO 0.03 K/mm3 (0.00-0.23); BASOPHILS PERCENT AUTO 0 % (0-2); EOSINOPHILS ABSOLUTE AUTO 0.06 K/mm3 (0.00-0.68); EOSINOPHILS PERCENT AUTO 1 % (0-6); Hematocrit 37.9 % (37.0-53.0); Hemoglobin 12.4 g/dL (13.5-17.5); IMMATURE GRAN ABSOLUTE AUTO 0.04 K/mm3 (0.00-0.10); IMMATURE GRAN PERCENT AUTO 0 % (0-1); LYMPHOCYTES ABSOLUTE AUTO 0.70 K/mm3 (0.84-5.20); LYMPHOCYTES PERCENT AUTO 8 % (21-46); MONOCYTES ABSOLUTE AUTO 0.73 K/mm3 (0.16-1.47); MONOCYTES PERCENT AUTO 8 % (4-13); Mean Corpuscular HGB Conc 32.7 g/dL (31.5-36.5); Mean Corpuscular Volume 95 fL (80-100); NEUTROPHILS ABSOLUTE AUTO 7.52 K/mm3 (1.96-9.15); NEUTROPHILS PERCENT AUTO 83 % (41-73); NRBC ABSOLUTE 0.00 K/mm3 (0.00-0.02); NRBC Auto 0.0 /100 WBC (0.0-0.2); Platelet Count 232 K/mm3 (150-400); RDW Coefficient Variation 13.3 % (11.7-14.2); RDW Standard Deviation 46.5 fL (35.1-46.3)
[2024-10-21 06:08] LABS: Anion Gap 11.0 mmol/L (3-11); Blood Urea Nitrogen 22.0 mg/dL (8-24); CO2, Blood 26.0 mmol/L (21-32); Calcium, Blood 8.4 mg/dL (8.5-10.1); Chloride, Blood 103.0 mmol/L (98-108); Creatinine, Blood 1.87 mg/dL (0.60-1.20); Glucose, Blood 90.0 mg/dL (70-99); Potassium, Blood 4.5 mmol/L (3.5-5.5); Sodium, Blood 135.0 mmol/L (136-145)
[2024-10-21 07:30] VITALS: BP 127/68
[2024-10-21] MEDS ORDERED: Furosemide 10 MG / ML 2ML Vial IV SCH (09:00)
[2024-10-21 16:10] VITALS: BP 119/64
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
[2024-10-21] MEDS ORDERED: Lidocaine 2% Viscous Soln 20 ML,Nystatin 100,000 Unit/ml Susp 20 ML,Mag Hydrox/Al Hydro... MT SCH (17:00)
[2024-10-21 19:34] VITALS: BP 117/68
[2024-10-22] MEDS ORDERED: LORazepam 2 MG/ML 1ML Injection IV ONE (01:25)
--- NOTE | 2024-10-22 02:23 | NUR ---
PATIENT INCREASING AGITATED AND YELLING IN THE ROOM ON/OFF LAST FEW HOURS. HOSPITALIST DR CHAVIRA ORDERED IV ATIVAN 1 MG X ONE. PATIENT SLEEPING AT THIS TIME. WCTM.
--- NOTE | 2024-10-22 04:14 | NUR ---
SHIFT SUMMARY ALERT TO SELF AND RUBY. PATIENT BECAME INCREASING AGITATED WITH YELLING AND CURSING LATER IN SHIFT. IV ATIVAN 1 MG GIVEN PER ORDER X ONE. DENIES CHEST PAIN, SOB, AND N/V. VSS/AFEBRILE. REPORTED FEET PAIN/BURNING AND TRAMADOL 50 MG GIVEN PER EMAR. PIV INTACT. BILATERAL WRIST RESTRAINTS IN PLACE PER ORDER. CALL LIGHT IN REACH. BED IN LOWEST POSITION AND ALARM ACTIVATED. WILL CONTINUE TO MONITOR UNTIL DAY SHIFT NURSE ASSUMES CARE.
[2024-10-22 05:58] LABS: BASOPHILS ABSOLUTE AUTO 0.05 K/mm3 (0.00-0.23); BASOPHILS PERCENT AUTO 1 % (0-2); EOSINOPHILS ABSOLUTE AUTO 0.14 K/mm3 (0.00-0.68); EOSINOPHILS PERCENT AUTO 2 % (0-6); Hematocrit 37.9 % (37.0-53.0); Hemoglobin 12.3 g/dL (13.5-17.5); IMMATURE GRAN ABSOLUTE AUTO 0.01 K/mm3 (0.00-0.10); IMMATURE GRAN PERCENT AUTO 0 % (0-1); LYMPHOCYTES ABSOLUTE AUTO 1.05 K/mm3 (0.84-5.20); LYMPHOCYTES PERCENT AUTO 17 % (21-46); MONOCYTES ABSOLUTE AUTO 0.77 K/mm3 (0.16-1.47); MONOCYTES PERCENT AUTO 12 % (4-13); Mean Corpuscular HGB Conc 32.5 g/dL (31.5-36.5); Mean Corpuscular Volume 94 fL (80-100); NEUTROPHILS ABSOLUTE AUTO 4.31 K/mm3 (1.96-9.15); NEUTROPHILS PERCENT AUTO 68 % (41-73); NRBC ABSOLUTE 0.00 K/mm3 (0.00-0.02); NRBC Auto 0.0 /100 WBC (0.0-0.2); Platelet Count 234 K/mm3 (150-400); RDW Coefficient Variation 13.2 % (11.7-14.2); RDW Standard Deviation 45.9 fL (35.1-46.3)
[2024-10-22 06:35] LABS: Anion Gap 7.0 mmol/L (3-11); Blood Urea Nitrogen 22.0 mg/dL (8-24); CO2, Blood 28.0 mmol/L (21-32); Calcium, Blood 8.9 mg/dL (8.5-10.1); Chloride, Blood 103.0 mmol/L (98-108); Creatinine, Blood 1.85 mg/dL (0.60-1.20); Glucose, Blood 75.0 mg/dL (70-99); Potassium, Blood 4.4 mmol/L (3.5-5.5); Sodium, Blood 134.0 mmol/L (136-145)
[2024-10-22 07:10] VITALS: BP 131/63
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
[2024-10-22 16:53] VITALS: BP 109/66
[2024-10-22 17:23] VITALS: BP 114/67
[2024-10-22 19:42] VITALS: BP 134/73
--- NOTE | 2024-10-23 03:51 | NUR ---
SHIFT SUMMARY ADMITTED FOR RT. FOOT CELLULITIS. FULL CODE. IV ANTIB RX ARE SCHEDULED. HE IS A&O X2, CONFUSED. 1 ASSIST W/FWW. ON RA. INCONTINENT. MINCED MOIST DIET. HE WILL DC HOME WITH FAMILY WHEN HE IS STABLE. HE HAS BEEN PLEASANT AND REDIRECTABLE THIS SHIFT. I DID MEDICATE HIM FOR PAIN ONCE THIS SHIFT.
[2024-10-23 04:31] VITALS: BP 122/69
[2024-10-23 05:10] LABS: BASOPHILS ABSOLUTE AUTO 0.03 K/mm3 (0.00-0.23); BASOPHILS PERCENT AUTO 1 % (0-2); EOSINOPHILS ABSOLUTE AUTO 0.15 K/mm3 (0.00-0.68); EOSINOPHILS PERCENT AUTO 3 % (0-6); Hematocrit 36.0 % (37.0-53.0); Hemoglobin 11.8 g/dL (13.5-17.5); IMMATURE GRAN ABSOLUTE AUTO 0.02 K/mm3 (0.00-0.10); IMMATURE GRAN PERCENT AUTO 0 % (0-1); LYMPHOCYTES ABSOLUTE AUTO 0.80 K/mm3 (0.84-5.20); LYMPHOCYTES PERCENT AUTO 13 % (21-46); MONOCYTES ABSOLUTE AUTO 0.58 K/mm3 (0.16-1.47); MONOCYTES PERCENT AUTO 10 % (4-13); Mean Corpuscular HGB Conc 32.8 g/dL (31.5-36.5); Mean Corpuscular Volume 94 fL (80-100); NEUTROPHILS ABSOLUTE AUTO 4.45 K/mm3 (1.96-9.15); NEUTROPHILS PERCENT AUTO 74 % (41-73); NRBC ABSOLUTE 0.00 K/mm3 (0.00-0.02); NRBC Auto 0.0 /100 WBC (0.0-0.2); Platelet Count 233 K/mm3 (150-400); RDW Coefficient Variation 13.2 % (11.7-14.2); RDW Standard Deviation 45.0 fL (35.1-46.3)
[2024-10-23 05:44] LABS: Anion Gap 9.0 mmol/L (3-11); Blood Urea Nitrogen 24.0 mg/dL (8-24); CO2, Blood 27.0 mmol/L (21-32); Calcium, Blood 8.4 mg/dL (8.5-10.1); Chloride, Blood 103.0 mmol/L (98-108); Creatinine, Blood 1.73 mg/dL (0.60-1.20); Glucose, Blood 88.0 mg/dL (70-99); Potassium, Blood 4.3 mmol/L (3.5-5.5); Sodium, Blood 135.0 mmol/L (136-145)
[2024-10-23 07:42] VITALS: BP 108/58
[2024-10-23] MEDS ORDERED: CeFAZolin Sodium 1,000 MG in NS 50 ML IV SCH (15:00)
[2024-10-23 16:00] VITALS: BP 131/71
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
[2024-10-23 19:55] VITALS: BP 142/95
[2024-10-24 04:19] VITALS: BP 118/57
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
[2024-10-24 05:28] LABS: Anion Gap 7.0 mmol/L (3-11); Blood Urea Nitrogen 24.0 mg/dL (8-24); CO2, Blood 30.0 mmol/L (21-32); Calcium, Blood 8.6 mg/dL (8.5-10.1); Chloride, Blood 103.0 mmol/L (98-108); Creatinine, Blood 1.72 mg/dL (0.60-1.20); Glucose, Blood 91.0 mg/dL (70-99); Potassium, Blood 4.2 mmol/L (3.5-5.5); Sodium, Blood 136.0 mmol/L (136-145)
[2024-10-24 07:32] VITALS: BP 122/65
--- NOTE | 2024-10-24 10:09 | NUR ---
assumed care pt sleeping, allowing pt to wake up undisturbed, pt was in restraints this evening possible agitation when awoken abruptly. while i was in room pt awoke and said (get the fxxx out). after futher questioning pt thought he was in his own house and felt i was an intruder, once i reoriented pt he was a little more pleasent but when i asked if i could give his scheduled iv medication said said NO, and aked me to leqave the room. once breakfast came i was able to set up pt and he was willing to take his oral meds. pt stated he didnt want to be bothered so i left the room.
--- NOTE | 2024-10-24 10:17 | NUR ---
pt was c/o of general body pain so i medicated with oral medication and reattemped to give IV antibiotics, pt was compliant at this point. iv meds infusing pt laying quietly with eyes closed .
[2024-10-24] MEDS ORDERED: CEPH500 PO (15:28)
[2024-10-24] MEDS ORDERED: FURO20 PO (15:29)
[2024-10-24] MEDS ORDERED: VISBIOME 112.51 EACH PO (15:30)
== END 2024-10-24 18:15 | disposition home or self-care (01) | DRG 603 ==
LOC: ER 12:04 → MEDS 16:41 → ERHOLD 16:41 → MEDS 18:38 → ENPENDDIS 10-24 14:38 → MEDS 10-24 18:15
PROVIDERS: Physician Assistant; ADMIT Family Medicine
DX: L03.115 Cellulitis of right lower limb (principal); E87.1 Hypo-osmolality and hyponatremia; N17.9 Acute kidney failure, unspecified; F03.93 Unspecified dementia, unspecified severity, with mood disturbance; L03.116 Cellulitis of left lower limb; Z78.1 Physical restraint status; N18.30 Chronic kidney disease, stage 3 unspecified; D63.1 Anemia in chronic kidney disease; I35.0 Nonrheumatic aortic (valve) stenosis; Z96.642 Presence of left artificial hip joint; Z86.718 Personal history of other venous thrombosis and embolism; Z85.46 Personal history of malignant neoplasm of prostate; Z86.73 Personal history of transient ischemic attack (TIA), and cerebral infarction without residual deficits; Z79.899 Other long term (current) drug therapy; Z85.038 Personal history of other malignant neoplasm of large intestine; Z98.890 Other specified postprocedural states; Z87.891 Personal history of nicotine dependence
CPT/HCPCS: 36415; 73630; 80048; 80053; 83880; 85025; 85651; 86140; 93005; 93010; 93971; 96365; 99285-25; A9270; C8929; J0690; J1644; J1938; J2060; J3010; J7050; Q9957

== ENCOUNTER 2025-02-09 12:25 | Emergency (ER) | payer OTHER ==
[~2025-02-09] VITALS: Ht 175.3 cm; Wt 68.0 kg
[~2025-02-09 12:25] MED LIST changes: +FURO20 PO; +VISBIOME 112.51 EACH PO
[2025-02-09 13:12] LABS: BASOPHILS ABSOLUTE AUTO 0.05 K/mm3 (0.00-0.23); BASOPHILS PERCENT AUTO 1 % (0-2); EOSINOPHILS ABSOLUTE AUTO 0.07 K/mm3 (0.00-0.68); EOSINOPHILS PERCENT AUTO 1 % (0-6); Hematocrit 40.4 % (37.0-53.0); Hemoglobin 13.1 g/dL (13.5-17.5); IMMATURE GRAN ABSOLUTE AUTO 0.03 K/mm3 (0.00-0.10); IMMATURE GRAN PERCENT AUTO 0 % (0-1); LYMPHOCYTES ABSOLUTE AUTO 0.83 K/mm3 (0.84-5.20); LYMPHOCYTES PERCENT AUTO 11 % (21-46); MONOCYTES ABSOLUTE AUTO 0.53 K/mm3 (0.16-1.47); MONOCYTES PERCENT AUTO 7 % (4-13); Mean Corpuscular HGB Conc 32.4 g/dL (31.5-36.5); Mean Corpuscular Volume 90 fL (80-100); NEUTROPHILS ABSOLUTE AUTO 5.95 K/mm3 (1.96-9.15); NEUTROPHILS PERCENT AUTO 80 % (41-73); NRBC ABSOLUTE 0.00 K/mm3 (0.00-0.02); NRBC Auto 0.0 /100 WBC (0.0-0.2); Platelet Count 183 K/mm3 (150-400); RDW Coefficient Variation 13.0 % (11.7-14.2); RDW Standard Deviation 42.4 fL (35.1-46.3)
[2025-02-09 13:19] LABS: Source, Urine Clean Catch
[2025-02-09 13:23] LABS: Bilirubin, Urine Neg (Neg); Color, Urine Yellow (P-Yellow); Glucose Qualitative, Urine Neg (Neg); Ketones, Urine Neg (Neg); Leukocyte Esterase, Urine 3+ (Neg); Protein, Urine 2+ (Neg); Specific Gravity, Urine 1.015 (1.003-1.022); Urobilinogen, Urine NORM (Normal)
[2025-02-09 13:32] LABS: Red Blood Cells, Urine 0-2 /hpf (0-2)
[2025-02-09 13:37] LABS: Alanine Aminotransfer (ALT/SGP 13.0 U/L (12-78); Albumin, Blood 3.6 g/dL (3.4-5.0); Albumin/Globulin Ratio 1.0 (0.8-1.8); Anion Gap 9.0 mmol/L (3-11); Aspartate Aminotrans (AST/SGOT 16.0 U/L (12-37); Bilirubin, Total 0.5 mg/dL (0.1-1.0); Blood Urea Nitrogen 32.0 mg/dL (8-24); CO2, Blood 27.0 mmol/L (21-32); Calcium, Blood 8.8 mg/dL (8.5-10.1); Chloride, Blood 107.0 mmol/L (98-108); Creatinine, Blood 1.77 mg/dL (0.60-1.20); Globulin, Blood 3.6 g/dL (2.2-4.0); Glucose, Blood 100.0 mg/dL (70-99); Magnesium, Blood 2.8 mg/dL (1.6-2.4); Potassium, Blood 4.0 mmol/L (3.5-5.5); Sodium, Blood 139.0 mmol/L (136-145); Total Protein, Blood 7.2 g/dL (6.4-8.2)
[2025-02-09 14:45] VITALS: BP 144/86
[2025-02-20] MEDS ORDERED: CITA20 PO (09:51)
[2025-02-20] MEDS ORDERED: AMOX-CLAV 875-1 EAC5 PO (09:51)
[2025-02-20] MEDS ORDERED: DONEPEZIL HCL10 MG PO (09:51)
== END 2025-02-09 15:53 | disposition home or self-care (01) ==
LOC: ER 12:25
PROVIDERS: Student in an Organized Health Care Education/Training Program
DX: N39.0 Urinary tract infection, site not specified (principal); F03.90 Unspecified dementia, unspecified severity, without behavioral disturbance, psychotic disturbance, mood disturbance, and anxiety; F17.220 Nicotine dependence, chewing tobacco, uncomplicated; Z79.899 Other long term (current) drug therapy; Z85.038 Personal history of other malignant neoplasm of large intestine; Z85.46 Personal history of malignant neoplasm of prostate; Z86.73 Personal history of transient ischemic attack (TIA), and cerebral infarction without residual deficits; Z86.718 Personal history of other venous thrombosis and embolism
CPT/HCPCS: 51701; 80053; 81001; 83735; 85025; 87077; 87086; 87186; 93005; 93010; 99284-25; A9270